=== PATIENT | male | born 1955 | race Caucasian/White ===

== ENCOUNTER → 2020-07-11 10:07 | Outpatient (BNVA) | payer MEDICARE, SELFPAY | PROVIDERS: PCP Family Medicine Geriatric Medicine; Referring Provider Family Medicine Geriatric Medicine; Visit Provider Nurse Practitioner Family | DX: R19.7 Diarrhea, unspecified (principal); Z12.11 Encounter for screening for malignant neoplasm of colon; Z79.899 Other long term (current) drug therapy; Z79.84 Long term (current) use of oral hypoglycemic drugs | CPT/HCPCS: Q3014 ==

== ENCOUNTER 2020-07-13 11:42 | Outpatient (REF) | payer MEDICARE, SELFPAY | END 2020-07-13 11:43 | disposition home or self-care (01) | LOC: HO.LAB 11:42 | PROVIDERS: PCP Internal Medicine; Visit Provider Nurse Practitioner Family | DX: Z13.89 Encounter for screening for other disorder (principal) ==

== ENCOUNTER 2020-08-27 08:07 | Outpatient (REF) | payer MEDICARE, SELFPAY ==
[2020-08-27 09:55] LABS: Alanine Aminotransferase 22 U/L (0-40); Albumin Level 4.2 g/dL (3.5-5.0); Alkaline Phosphatase 72 U/L (39-117); Anion Gap 13 (12-20); Aspartate Amino Transferase 19 U/L (5-37); Bilirubin Total 0.3 mg/dL (0.0-1.0); Blood Urea Nitrogen 23 mg/dL (9-16); Carbon Dioxide 28 mmol/L (22-29); Chloride 107 mmol/L (96-108); Estimated Glomerular Filt Rate 52; Glucose Random 164 mg/dL (60-115); Potassium 4.9 mmol/l (3.3-5.1); Sodium 143 mmol/L (135-145)
[2020-08-27 09:56] LABS: Hematocrit 42.3 % (42-52); Hemoglobin 13.7 g/dl (14.0-18.0); Mean Corpuscular HGB Conc 32.4 g/dl (31.0-36.0); Mean Corpuscular Hemoglobin 29.9 pg (27.0-33.0); Mean Corpuscular Volume 92.4 fL (80-98); Platelet Count 218 X10*3/uL (160-400); Red Blood Count 4.58 X10*6/uL (4.60-5.80); Red Cell Distribution Width 11.7 % (11.0-16.0); White Blood Count 5.9 X10*3/uL (4.8-10.8)
== END 2020-08-27 08:08 | disposition home or self-care (01) ==
LOC: HO.LAB 08:07
PROVIDERS: PCP Internal Medicine; Visit Provider Nurse Practitioner Family
DX: Z12.11 Encounter for screening for malignant neoplasm of colon (principal)
CPT/HCPCS: 36415; 80053; 85027

== ENCOUNTER 2020-09-18 08:10 | Day surgery (SDC) | payer MEDICARE, SELFPAY ==
--- NOTE | 2020-09-17 09:47 | HO.ANESPROP2 ---
HPI - Anesthesia Eval Consult details Narrative: 65yo [facility] Past Medical History Medical History Depression Diabetes mellitus Hypothyroid Family History Family History (Updated 07/11/20 @ 10:14 by KAREN Marin) Mother No problems noted. Father No problems noted. Surgical History Surgical History (Updated 09/11/20 @ 13:38 by Sulema Willams) Hx of colonoscopy Social History Social History (Updated 07/11/20 @ 10:15 by KAREN Marin) Alcohol intake: current Alcohol intake frequency: does not drink Smoking Status: Never smoker Use of substances other than those prescribed or required for medical reasons: No Advance Directives: No Advance Directives Information Provided: Yes Current occupational status: retired and disabled Meds Allergies Allergy/AdvReac Type Severity Reaction Status Date / Time No Known Allergies Allergy Verified 09/18/20 09:00 [No Known Allergies*] Home Medications Medication Instructions Recorded Confirmed Type clonazepam 0.5 mg tablet 0.5 mg PO TID PRN 07/11/20 09/11/20 History fluoxetine 20 mg capsule 20 mg PO DAILY 07/11/20 09/11/20 History fluoxetine 40 mg capsule 40 mg PO DAILY 07/11/20 09/11/20 History folic acid 400 mcg tablet 0.4 mg PO DAILY 07/11/20 09/11/20 History levothyroxine 75 mcg tablet 75 mcg PO DAILY 07/11/20 07/11/20 History lisinopril 10 mg tablet 10 mg PO DAILY 07/11/20 09/11/20 History metformin 500 mg tablet mg PO 07/11/20 07/11/20 History pravastatin 40 mg tablet 40 mg PO DAILY 07/11/20 09/11/20 History propranolol 20 mg tablet 20 mg PO DAILY 07/11/20 09/11/20 History Exam Exam Date and Time: September 17, 2020 0947 Pertinent Lab Results Pertinent Lab Results: Laboratory Tests 08/27/20 08/27/20 08:30 08:30 WBC 5.9 Hgb 13.7 L Hct 42.3 Plt Count 218 Sodium 143 Potassium 4.9 Chloride 107 Carbon Dioxide 28 BUN 23 H Creatinine 1.37 Assessment and Plan Assessment Anesthesia Assessment: Chart Reviewed
[2020-09-18 09:02] VITALS: BP 139/67; PULSE 60; RESP 18; TEMP 36.4; O2SAT 96; BMI 27.8
[2020-09-18 09:22] LABS: Glucose, Whole Blood 137 mg/dL (60-115)
[2020-09-18] MEDS: Lactated Ringers 1,000 ML 100 ML IVCONT (09:22)
--- NOTE | 2020-09-18 09:37 | W.PM.OPN ---
Operative Note Operative Note Date of Service: 09/18/20 Narrative: Pre-op diagnosis: Colon cancer screening, chronic diarrhea Post-op diagnosis: other (Colon polyp, diverticulosis, hemorrhoids) Procedure: COLONOSCOPY TILL CECUM WITH BIOPSIES AND SNARE POLYPECTOMY Consent: Indications for the procedure and potential complications of bleeding, perforation, reaction to medications and missed diagnosis were discussed with the patient and informed consent was obtained. Instrument: Olympus PCF H 190 L variable stiffness pediatric colonoscope Monitoring: Vital signs and clinical assessment, intermittent blood pressure monitoring, continuous EKG monitoring, Pulse oximetry and Carbon Dioxide monitoring were done throughout the procedure. Colon withdrawl time was 25 minutes. Procedure: The patient was placed in the left lateral decubitis position and pre-procedure medications were administered. After a digital rectal examination of the ano-rectum, the video colonoscope was inserted into the rectum and advanced through the colon to the cecum. The colonoscope was slowly withdrawn in a retrograde panoramic fashion and the colon mucosa was carefully examined including a retroflexed view of the rectum. Findings and interventions are described below. Procedure Difficulty: Colon was long and tortuous and there was some loop formation. LLQ pressure was applied to intubate the cecum Findings: Terminal Ileum: Not evaluated Cecum: Normal Ascending Colon: Normal Transverse Colon: Normal Descending Colon: Moderate diverticulosis Sigmoid Colon: A 10 mm sessile polyp removed with a cold snare and moderate diverticulosis Rectum: Normal Ano-rectum: Small internal hemorrhoids Colon preparation: Good after some irrigation Impression and Post Procedure Diagnosis: Colonoscopy Findings: One medium sized polyp removed Random biopsies were obtained from the colon Moderate diverticulosis seen in the left colon Small hemorrhoids on retroflexed exam. Plan: Await pathology results Patient to schedule a FU appointment in the GI [facility] with Iram Sainz FNP-ALISSA. Repeat Colonoscopy interval based on path results - in 3 years if polyps are adenomatous and 10 years if polyps are hyperplastic. Above findings were reviewed with the patient and colon polyps and diverticulosis handouts were given in the discharge area Surgeon: Sanket Leach MD Anesthesia: MAC (Dr Isaac) Estimated blood loss (mL): 0 Pathology: other (A. random colon biopsies, B. SC polyp x1) Condition: stable Disposition: PACU
--- NOTE | 2020-09-18 09:37 | MHC.SHP ---
Pre-Procedural Eval Section A The patient is an INPATIENT: No The History & Physical has been completed within 30 days and I have reviewed it.: No Section B Chief Complaint: screening Details of Present Illness: Patient had a colonoscopy in July of 2015. One cecal polyp was found with the biopsy revealing tubular adenoma. Patient reports that he has seen GI specialist at [facility] about 2 years ago for diarrhea. He was sent for colonoscopy to evaluate. He reports that he did not had a follow-up with the specialist after colonoscopy was done and does not know the results. Relevant Family History (Specify if Yes): No Relevant Social History: None Present Medications: see Short Stay [facility] assessment History of Previous Operations: Relevant previous surgery/procedure and date(s) (Colonoscopy 2014) Allergies: Allergies Allergy/AdvReac Type Severity Reaction Status Date / Time No Known Allergies Allergy Verified 09/18/20 09:00 [No Known Allergies*] Review of Systems Sugical H&P ROS: Negative: Constitution, Cardiovascular and Respiratory and Yes, Specify: Gastrointestinal (Chronic diarrhea) Exam Surgical H&P Exam: Normal: Heart, Normal: Lungs, Normal: Extremities and Normal: Abdomen Plan Diagnosis/Plan: Unchanged I have reviewed the history and physical and performed a pertinent physical examination on my patient. No changes have occurred unless specified.
[2020-09-18 10:28] VITALS: BP 101/66; PULSE 52; RESP 16; TEMP 36.4; O2SAT 97
[2020-09-18 10:44] VITALS: BP 102/63; PULSE 56; RESP 18; TEMP 36.6; O2SAT 98
[2020-09-18 10:55] VITALS: BP 116/51; PULSE 55; RESP 18; TEMP 36.6; O2SAT 98
--- NOTE | 2020-09-18 11:13 | HO.POSTANES ---
Post Anesthesia Evaluation Post Anesthesia Evaluation Vital Signs: Vital Signs Temp Pulse Resp BP Pulse Ox 09/18/20 10:55 97.8 F 55 18 116/51 L 98 09/18/20 10:44 97.8 F 56 18 102/63 98 09/18/20 10:28 97.5 F 52 16 101/66 97 09/18/20 09:02 97.5 F 60 18 139/67 96 Anesthesia: Monitored Mental Status: Awake Pain Control: Satisfactory Nausea/Vomiting: None Hydration: Adequate Anesthesia-Related Issues: No Anes. Related Issues
== END 2020-09-18 11:35 | disposition home or self-care (01) ==
PROVIDERS: PCP Internal Medicine; Visit Provider Internal Medicine Gastroenterology
PROC: 0DJD8ZZ Inspection of Lower Intestinal Tract, Via Natural or Artificial Opening Endoscopic (ICD-10-PCS; CPT 45378; principal; 2020-09-18 09:30)
DX: Z12.11 Encounter for screening for malignant neoplasm of colon (principal); Z86.010 Personal history of colon polyps; D12.5 Benign neoplasm of sigmoid colon; K57.30 Diverticulosis of large intestine without perforation or abscess without bleeding; K64.8 Other hemorrhoids; K52.9 Noninfective gastroenteritis and colitis, unspecified; E11.9 Type 2 diabetes mellitus without complications; E03.9 Hypothyroidism, unspecified; F32.9 Major depressive disorder, single episode, unspecified; Z79.84 Long term (current) use of oral hypoglycemic drugs; Z79.899 Other long term (current) drug therapy
CPT/HCPCS: 45385; 45380; 82947; 88305

== ENCOUNTER → 2020-09-25 14:09 | Outpatient (BNVA) | payer MEDICARE, SELFPAY | PROVIDERS: PCP Internal Medicine; Visit Provider Nurse Practitioner Family | DX: Z76.89 Persons encountering health services in other specified circumstances (principal) | CPT/HCPCS: Q3014 ==

== ENCOUNTER 2022-11-16 07:45 | Emergency (ER) | payer MEDICARE, SELFPAY ==
--- NOTE | ~2022-11-16 | CT_ITS ---
EXAMINATION: CT HEAD WITHOUT CONTRAST CLINICAL INFORMATION: Headache COMPARISON: None available. TECHNIQUE: Contiguous axial imaging was performed from the skull base to vertex without intravenous administration of contrast. This CT examination was performed using dose optimization techniques as appropriate, variously including the following: *Automated exposure control *Adjustment of mA and/or kV according to patient size (this includes techniques or standardized protocols for targeted exams where dose is matched to indication/reason for exam; i.e. extremities or head) *Use of iterative reconstruction technique DLP: 696 mGy-cm FINDINGS: There is no evidence of an extra-axial collection. There is no evidence of intra or extra-axial hemorrhage. The ventricles and extra-axial CSF spaces are appropriate. Lowry-white matter differentiation is normal. No skull fracture. Air-fluid level in the left maxillary sinus suggestive of sinusitis. Visualized paranasal sinuses, mastoid air cells and middle ears are otherwise clear. CT/CT head/brain wo IV con IMPRESSION: No acute intracranial pathology. Air-fluid level in the left maxillary sinus suggestive of acute sinusitis.
--- NOTE | ~2022-11-16 | XR_ITS ---
EXAMINATION: XR CHEST CLINICAL INFORMATION: Cough COMPARISON: None available. TECHNIQUE: Frontal view of the chest was obtained. FINDINGS: Cardiac silhouette is normal in size. The lungs are well aerated. There is mild asymmetric elevation of right hemidiaphragm. There is no lobar consolidation. No pleural effusion or pneumothorax. Mild degenerative changes of the spine. XR/XR chest 1V IMPRESSION: No acute pulmonary pathology.
[2022-11-16 07:48] VITALS: BP 105/61; PULSE 80; RESP 14; TEMP 36.9; O2SAT 99; BMI 27.1
--- NOTE | 2022-11-16 08:10 | ED_ITS ---
HPI - General Adult General Chief complaint: General Medical Stated complaint: nausea/ headache/ positive covid test 11/15? Time Seen by Provider: 11/16/22 07:55 Source: patient Mode of arrival: ambulatory Limitations: no limitations History of Present Illness HPI narrative: 67 yo male with history of pre-diabetes, HTN, hypothyroidism, anxiety, depression, bicuspid heart valve here with complaints of headache, nasal congestion, nausea, generalized weakness x 2 days. Took COVID test last night which was positive. Patient states severe generalized FERGUSON. Took 4 tablets of APAP last night with no relief. Can't sleep d/t pain. Patient denies fevers, chills, neck pain, neck stiffness, chest pain, shortness of breath, vomiting, diarrhea, abdominal pain, skin rash. He has received 5 COVID vaccinations. He has never h ad COVID before. Related Data Home Medications Medication Instructions Recorded Confirmed clonazepam 0.5 mg tablet 0.5 mg PO TID PRN Anxiety 07/11/20 09/25/20 fluoxetine 20 mg capsule 20 mg PO DAILY 07/11/20 09/25/20 fluoxetine 40 mg capsule 40 mg PO DAILY 07/11/20 09/25/20 folic acid 400 mcg tablet 0.4 mg PO DAILY 07/11/20 09/25/20 levothyroxine 75 mcg tablet 75 mcg PO DAILY 07/11/20 09/25/20 lisinopril 10 mg tablet 10 mg PO DAILY 07/11/20 09/25/20 metformin 500 mg tablet mg PO 07/11/20 09/25/20 pravastatin 40 mg tablet 40 mg PO DAILY 07/11/20 09/25/20 propranolol 20 mg tablet 20 mg PO DAILY 07/11/20 09/25/20 Previous Rx's Medication Instructions Recorded methylcellulose (laxative) 500 mg 500 mg PO DAILY #30 tabs 07/11/20 tablet (Citrucel) thlxawyfzg-wvtxbclawrmsy-pgclayun 1 cap PO Q8H PRN pain #5 caps 11/16/22 50 mg-300 mg-40 mg capsule (Fioricet) ondansetron 4 mg disintegrating 4 mg PO TID PRN nausea and 11/16/22 tablet vomiting #10 tabs Allergies Allergy/AdvReac Type Severity Reaction Status Date / Time No Known Allergies Allergy Verified 09/25/20 14:09 [No Known Allergies*] Review of Systems Review of Systems: Yes all other systems are reviewed and are negative Constitutional: Constitutional: Reports no additional constitutional complaints, Denies body ache(s), Denies chills, Denies fever(s), Reports headache(s) and Reports weakness Eyes: Eyes: Reports no additional eye complaints and Denies change in vision ENT: Reports system reviewed and no additional complaints, except as doc umented, Denies dizziness, Reports headache(s), Reports nasal congestion, Denies nasal discharge and Denies neck pain Cardiovascular: Cardiovascular: Reports no additional cardiovascular complaints, Denies chest pain, Denies leg edema and Denies dyspnea Respiratory: Respiratory: Reports no additional respiratory complaints, Denies cough and Denies dyspnea Gastrointestinal: Gastrointestinal: Reports no additional gastrointestinal complaints, Denies abdominal pain, Denies diarrhea, Reports nausea and Denies vomiting Genitourinary: Genitourinary: Denies urinary incontinence Musculoskeletal: Musculoskeletal: Reports no additional musculoskeletal complaints, Denies back pain, Denies arthralgias, Denies joint swelling, Denies neck pain, Denies numbness and Denies tingling Integumentary/Breasts: Skin/Breast: Reports system reviewed and no additional complaints, except as docu and Denies rash Neurologic: Reports system reviewed and no additional complaints, except as documented, Denies dizziness, Reports headache(s), Denies numbness, Denies tingling and Reports weakness PMFSH Past Medical History Attestation statement: The following information was validated with the patient. Source: old records reviewed and nursing notes reviewed Medical History Depression Diabetes mellitus Hypothyroid Tubular adenoma Surgical History Hx of colonoscopy Family History Family History Mother Heart attack Father Heart attack Social History Social History Household Members: Family Household Members Other:: mother Alcohol intake: never Smoked in Last 30 Days: No Use of substances other than those prescribed or required for medical reasons: No Advance Directives: Yes Advance Directives Information Provided: No Advance Directives on File: No Current occupational status: retired and disabled Physical Exam ED Vital Signs: Vital Signs - 24 hr 11/16/22 07:48 11/16/22 09:14 11/16/22 10:31 Temperature 98.5 F Pulse Rate 80 56 56 Respiratory Rate 14 16 Blood Pressure 105/61 114/47 L 110/46 L Pulse Oximetry 99 97 100 Oxygen Delivery Method Room Air Room Air Room Air 11/16/22 15:06 Temperature Pulse Rate 57 Respiratory Rate 16 Blood Pressure 124/56 L Pulse Oximetry 99 Oxygen Delivery Method Room Air BMI result Body Mass Index 27.1 Const General: cooperative, healthy appearing, comfortable and no acute distress Orientation/consciousness: patient oriented x3 Limitations: no limitations HENMT Head: Yes normal to inspection Ears: hearing grossly normal bilaterally and TM's normal bilaterally Throat: Yes posterior oropharynx normal, Yes tonsils normal and Yes uvula midline Eyes General: appearance normal, both eyes and all related structures Pupils: Equal, round and reactive pupils present Neck Neck: Yes normal visual inspection, Yes full ROM, Yes no lymphadenopathy and Yes no meningeal signs Chest Chest palpation & inspection: normal inspection of the chest Resp Effort & Inspection: normal respiratory effort Auscultation: clear to auscultation bilaterally Cardio Rate: regular rate Rhythm: regular rhythm Peripheral pulses: Peripheral pulses 2+ throughout GI Inspection: Yes normal to inspection Palpation (GI): Soft to palpation and nontender General: Yes no CVA tenderness Back/Spine/Pelvis Back: no CVA tenderness Thoracic/Lumbar Spine: thoracic and lumbar spine normal to inspection Skin General skin exam: no rashes or lesions noted Neuro General: patient oriented x3, moves all extremities and no meningeal signs Cranial nerves: Yes CN's II-XII intact bilaterally, Yes Equal, round and reactive pupils present, Yes Bilaterally intact EOM present, Yes Nystagmus not present, Yes Normal facial strength present and Yes Midline tongue present Cognition (Neuro): normal cognition Gait exam (Neuro): Normal gait present Motor exam (neuro): 5/5 motor strength present throughout Sensory Exam: Normal double simultaneous stimulation for sensation Extrem General: Yes normal to inspection, Yes no pedal edema and Yes no calf tenderness Course Course Course Narrative: 0900-Patient with elevated creatinine and BUN, mild hyperK. However most recent labs are from August of 2020 so I do not know if this is acute or chronic. Patient will receive 1 L of IV fluid and will reassess. Will obtain UA, EKG Reevaluation(s) Reevaluation #1: 0913-EKG shows NSR with rate 60, q wave present v2-v3. Likely anteroseptl infarct age indeterminate. 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 Will attempt to get records from [facility] as patient believes he has been there before as a patient Reevaluation #3: 1120-Unable to get old EKG after multiple attempts. No chest pain, exertional symptoms concerning for ACS with troponin 3.9. Not likely ACS. Additional Reevaluation(s): 1145-Repeat renal function post 1 L IVF still mildly elevated w/ mild acidosis, mild hyperK. D/w with Dr Huizar my attending physician, plan to give 2 additional L NS and re-assess. Patient is voiding, over all feeling better. Will give PO 1750-Patient will continued elevated creatinine/BUN, mild acidosis and hyper K despite 3L NS. Additional w/u negative. patient is voiding. Still feels quite weak, has FERGUSON. Ct head negative. Doubt meningitis, pseudotumor cerebri, temporal arteritis. Likely migraine. Patient does have some mild sinusitis on his CT scan however was only had symptoms for 2 days I would not treat him with any antibiotics. I discussed this patient with my attending physician Dr MERRITT. Patient should be admitted. 1830-since patient is at his baseline creatinines there does not seem to be a reason for admission. He does have mild hyperkalemia but this may be from hemolysis and is only mildly elevated. Patient received 1 dose of Lokelma while he was in the ER. I did recommend that he hold his metformin and follow up with his doctor in the next few days for repeat check of his labs and exam. Not a candidate for Paxlovid due to renal function. This was discussed with the patient Medications Administered Discontinued Medications Generic Name Dose Route Start Last Admin Trade Name Freq PRN Reason Stop Dose Admin Acetaminophen 975 mg 11/16/22 11:18 11/16/22 11:26 Acetaminophen 325 Mg Tablet PO 11/16/22 11:19 975 mg ONCE ONE Administration Sodium Chloride 1,000 mls @ 999 mls/hr 11/16/22 08:15 04/02/23 09:29 Ns IVCONT 11/16/22 09:15 Infused .Q1H1M MAU Infusion Sodium Chloride 1,000 mls @ 999 mls/hr 11/16/22 08:51 11/16/22 10:19 Ns IV 11/16/22 09:51 Infused .Q1H1M STA Infusion Sodium Chloride 2,000 mls @ 999 mls/hr 11/16/22 11:45 11/16/22 14:01 Ns IV 11/16/22 13:45 Infused .Q2H1M STA Infusion Medical Decision Making Medical Decision Making MDM Narrative: 67-year-old male who presents to the ER today with complaints of generalized headache, nasal congestion, weakness, nausea for 2 days. To go home COVID test which is positive yesterday. No chest pain shortness of breath or fever. Patient states the headache is quite severe and he took Tylenol several times with no relief at all. Patient was unable to sleep due to the pain. On arrival normal neuro with no focal deficit Vitals are stable Will check labs, CT head, COVID screen, CXR Differential Diagnosis Differential Diagnoses: The differential diagnosis associated with the presentation includes viral syndrome, electrolyte abnormality, anemia, pneumonia FERGUSON-doubt ICH, meninigits, pseudotumor cerebri, temporal arteritis Admission/Observation Consideration of admission/observation: Escalation of care including admission/observation considered Patient had KEMI, now back to baseline after IV fluid. Discussed with medicine and they feel as he is back at his baseline for his kidney function admission is not warranted Consult Healthcare Provider Management of the patient was discussed with: Hospitalist Spoke to Dr Hernandez. They were able to access [facility] records and patient has a baseline creatinine of 1.7. Since patient is at his baseline will plan for discharge home. Lab Data [facility] Lab Attestation statement: I reviewed the patient's lab results. 11/16/22 08:21 11/16/22 08:21 Labs: Lab Results 11/16/22 11/16/22 11/16/22 Range/Units 08:21 08:21 08:46 WBC 6.2 (4.8-10.8) X10*3/uL RBC 5.00 (4.60-5.80) X10*6/uL Hgb 15.1 (14.0-18.0) g/dl Hct 45.7 (42.0-52.0) % MCV 91.4 (80.0-98.0) fL MCH 30.2 (27.0-33.0) pg MCHC 33.0 (31.0-36.0) g/dl RDW 12.8 (11.0-16.0) % Plt Count 152 L (160-400) X10*3/uL MPV 9.6 (9.4-12.4) fL Immature Gran % (Auto) 0.5 H (0.0-0.4) % Neut % (Auto) 77.0 H (45-73) % Lymph % (Auto) 7.3 L (20-40) % [place] % (Auto) 14.9 H (2-11) % Eos % (Auto) 0.0 (0-4) % Baso % (Auto) 0.3 (0-2) % Lymph # (Auto) 0.5 L (1.2-4.9) X10*3/uL [place] # (Auto) 0.9 (0.1-1.2) X10*3/uL Eos # (Auto) 0.0 (0.0-0.4) X10*3/uL Baso # (Auto) 0.0 (0.0-0.2) X10*3/uL Abs Immat Gran (auto) 0.03 (0.00-0.03) X10*3/uL Absolute Neuts (auto) 4.8 (2.0-8.3) x10*3/uL Absolute Nucleated RBC 0.000 (0.0-0.012) X10*3/uL Nucleated RBC % (auto) 0.0 (0.0-0.2) /100WBC PT (10.0-13.1) SEC INR (0.9-1.1) Sodium 135 (135-145) mmol/L Potassium 5.4 H (3.3-5.1) mmol/L Chloride 104 (96-108) mmol/L Carbon Dioxide 22 (22-29) mmol/L Anion Gap 14 (12-20) BUN 31 H (9-16) mg/dL Creatinine 2.17 H (0.5-1.4) mg/dL Estim Creat Clear Calc 35.1 Estimated GFR 30 Random Glucose 129 H (60-115) mg/dL Calcium 9.0 (8.4-10.2) mg/dL Magnesium 2.4 (1.6-2.6) mg/dL Total Bilirubin 0.6 (0.0-1.0) mg/dL Direct Bilirubin 0.2 (0.0-0.5) mg/dL AST 28 (5-37) U/L ALT 33 (0-40) U/L Alkaline Phosphatase 75 (39-117) U/L Troponin I High Sens (<3.5-35.0) ng/L Total Protein 6.9 (6.5-8.0) g/dL Albumin 4.2 (3.5-5.0) g/dL Urine Color Urine Appearance Urine pH (5.0-9.0) Ur Specific [place] (1.005-1.025) Urine Protein (Neg-Trace) mg/dL Urine Glucose (UA) (Negative) mg/dL Urine Ketones (Negative) mg/dL Urine Blood (Negative) Urine Nitrite (Negative) Ur Leukocyte Esterase (Negative) Urine RBC (0-2) /HPF Urine WBC (0-5) /HPF Ur Squamous Epith Cells (0-2) /HPF Urine Bacteria (None Seen) Hyaline Casts (0-2) /LPF COVID-19 (ARIEL) Positive A (Negative) COVID-19 Clin Com See Note 11/16/22 11/16/22 11/16/22 Range/Units 10:34 10:51 10:51 WBC (4.8-10.8) X10*3/uL RBC (4.60-5.80) X10*6/uL Hgb (14.0-18.0) g/dl Hct (42.0-52.0) % MCV (80.0-98.0) fL MCH (27.0-33.0) pg MCHC (31.0-36.0) g/dl RDW (11.0-16.0) % Plt Count (160-400) X10*3/uL MPV (9.4-12.4) fL Immature Gran % (Auto) (0.0-0.4) % Neut % (Auto) (45-73) % Lymph % (Auto) (20-40) % [place] % (Auto) (2-11) % Eos % (Auto) (0-4) % Baso % (Auto) (0-2) % Lymph # (Auto) (1.2-4.9) X10*3/uL [place] # (Auto) (0.1-1.2) X10*3/uL Eos # (Auto) (0.0-0.4) X10*3/uL Baso # (Auto) (0.0-0.2) X10*3/uL Abs Immat Gran (auto) (0.00-0.03) X10*3/uL Absolute Neuts (auto) (2.0-8.3) x10*3/uL Absolute Nucleated RBC (0.0-0.012) X10*3/uL Nucleated RBC % (auto) (0.0-0.2) /100WBC PT 11.2 (10.0-13.1) SEC INR 1.0 (0.9-1.1) Sodium (135-145) mmol/L Potassium (3.3-5.1) mmol/L Chloride (96-108) mmol/L Carbon Dioxide (22-29) mmol/L Anion Gap (12-20) BUN (9-16) mg/dL Creatinine (0.5-1.4) mg/dL Estim Creat Clear Calc Estimated GFR Random Glucose (60-115) mg/dL Calcium (8.4-10.2) mg/dL Magnesium (1.6-2.6) mg/dL Total Bilirubin (0.0-1.0) mg/dL Direct Bilirubin (0.0-0.5) mg/dL AST (5-37) U/L ALT (0-40) U/L Alkaline Phosphatase (39-117) U/L Troponin I High Sens 3.9 (<3.5-35.0) ng/L Total Protein (6.5-8.0) g/dL Albumin (3.5-5.0) g/dL Urine Color Yellow Urine Appearance Clear Urine pH 5.5 (5.0-9.0) Ur Specific [place] 1.015 (1.005-1.025) Urine Protein Negative (Neg-Trace) mg/dL Urine Glucose (UA) >=1000 H (Negative) mg/dL Urine Ketones Trace (Negative) mg/dL Urine Blood Negative (Negative) Urine Nitrite Negative (Negative) Ur Leukocyte Esterase Negative (Negative) Urine RBC 0-2 (0-2) /HPF Urine WBC 0-5 (0-5) /HPF Ur Squamous Epith Cells 0-2 (0-2) /HPF Urine Bacteria None Seen (None Seen) Hyaline Casts 3-5 (0-2) /LPF COVID-19 (ARIEL) (Negative) COVID-19 Clin Com 11/16/22 11/16/22 Range/Units 11:17 17:10 WBC (4.8-10.8) X10*3/uL RBC (4.60-5.80) X10*6/uL Hgb (14.0-18.0) g/dl Hct (42.0-52.0) % MCV (80.0-98.0) fL MCH (27.0-33.0) pg MCHC (31.0-36.0) g/dl RDW (11.0-16.0) % Plt Count (160-400) X10*3/uL MPV (9.4-12.4) fL Immature Gran % (Auto) (0.0-0.4) % Neut % (Auto) (45-73) % Lymph % (Auto) (20-40) % [place] % (Auto) (2-11) % Eos % (Auto) (0-4) % Baso % (Auto) (0-2) % Lymph # (Auto) (1.2-4.9) X10*3/uL [place] # (Auto) (0.1-1.2) X10*3/uL Eos # (Auto) (0.0-0.4) X10*3/uL Baso # (Auto) (0.0-0.2) X10*3/uL Abs Immat Gran (auto) (0.00-0.03) X10*3/uL Absolute Neuts (auto) (2.0-8.3) x10*3/uL Absolute Nucleated RBC (0.0-0.012) X10*3/uL Nucleated RBC % (auto) (0.0-0.2) /100WBC PT (10.0-13.1) SEC INR (0.9-1.1) Sodium 136 137 (135-145) mmol/L Potassium 5.9 H 5.7 H (3.3-5.1) mmol/L Chloride 108 108 (96-108) mmol/L Carbon Dioxide 19 L 18 L (22-29) mmol/L Anion Gap 15 17 (12-20) BUN 28 H 27 H (9-16) mg/dL Creatinine 1.83 H 1.71 H (0.5-1.4) mg/dL Estim Creat Clear Calc 41.7 44.6 Estimated GFR 37 40 Random Glucose 94 87 (60-115) mg/dL Calcium 8.1 L D 8.1 L (8.4-10.2) mg/dL Magnesium (1.6-2.6) mg/dL Total Bilirubin (0.0-1.0) mg/dL Direct Bilirubin (0.0-0.5) mg/dL AST (5-37) U/L ALT (0-40) U/L Alkaline Phosphatase (39-117) U/L Troponin I High Sens (<3.5-35.0) ng/L Total Protein (6.5-8.0) g/dL Albumin (3.5-5.0) g/dL Urine Color Urine Appearance Urine pH (5.0-9.0) Ur Specific [place] (1.005-1.025) Urine Protein (Neg-Trace) mg/dL Urine Glucose (UA) (Negative) mg/dL Urine Ketones (Negative) mg/dL Urine Blood (Negative) Urine Nitrite (Negative) Ur Leukocyte Esterase (Negative) Urine RBC (0-2) /HPF Urine WBC (0-5) /HPF Ur Squamous Epith Cells (0-2) /HPF Urine Bacteria (None Seen) Hyaline Casts (0-2) /LPF COVID-19 (ARIEL) (Negative) COVID-19 Clin Com Independent Interpretation I performed an independent interpretation of an: EKG, Plain X-Ray and CT Scan Interpretation: I independently reviewed the x-ray and the CT scan and agree with radiologist's report I indepedentely reviewed the EKG which shows NSR with rate 60 with SA, q wave present v2-v3. Radiology Impression Discussion of test interpretation with radiology: I have reviewed the radiologist's reading. Radiologist Impression: [address] [address] XRay Report Signed Patient: Adrian Mancilla MR#: [id number] : 1955 Acct:[id number] Age/Sex: 67 / M ADM Date: 11/16/22 [facility]: Ordering Physician: Barry Huizar MD Date of Service: 11/16/22 Procedure(s): XR chest 1V Accession Number(s): [id number] cc: Barry Huizar MD~ EXAMINATION: XR CHEST CLINICAL INFORMATION: Cough COMPARISON: None available. TECHNIQUE: Frontal view of the chest was obtained. FINDINGS: Cardiac silhouette is normal in size. The lungs are well aerated. There is mild asymmetric elevation of right hemidiaphragm. There is no lobar consolidation. No pleural effusion or pneumothorax. Mild degenerative changes of the spine. XR/XR chest 1V IMPRESSION: No acute pulmonary pathology. [address] [address] XRay Report Signed Patient: Adrian Mancilla MR#: [id number] : 1955 Acct:[id number] Age/Sex: 67 / M ADM Date: 11/16/22 Loc: .ED Attending Dr: Ordering Physician: Barry Huizar MD Date of Service: 11/16/22 Procedure(s): XR chest 1V Accession Number(s): [id number] cc: Barry Huizar MD~ EXAMINATION: XR CHEST CLINICAL INFORMATION: Cough COMPARISON: None available. TECHNIQUE: Frontal view of the chest was obtained. FINDINGS: Cardiac silhouette is normal in size. The lungs are well aerated. There is mild asymmetric elevation of right hemidiaphragm. There is no lobar consolidation. No pleural effusion or pneumothorax. Mild degenerative changes of the spine. XR/XR chest 1V IMPRESSION: No acute pulmonary pathology. ? ? Discharge Plan Discharge Clinical Impression: Weakness, COVID-19, Acute dehydration Patient Disposition: Home, Self-Care Instructions: Dehydration (ED), Weakness (ED), COVID-19 (Coronavirus Disease 2019) (ED) Additional Instructions: Your COVID test was positive. Please continue your quarantine. Unfortunately due to your elevated kidney function you do not qualify for the current antiviral medications available for the treatment of COVID. Your labs show that your mildly dehydrated. You did receive IV fluids and your now back at your baseline kidney function. We did confirm this with your labs recently available from [facility] Your potassium was mildly elevated. Please hold your metformin for the next 5 days. You will need to see her primary care doctor this week to have your pota ssium level rechecked. Continue to increase fluids at home, take Tylenol for pain as needed Return for any chest pain, shortness of breath Prescriptions: New ondansetron 4 mg tablet,disintegrating 4 mg PO TID PRN (Reason: nausea and vomiting) Qty: 10 0RF [id number] [Fioricet] 50-300-40 mg capsule 1 cap PO Q8H PRN (Reason: pain) Qty: 5 0RF No Action fluoxetine 20 mg capsule 20 mg PO DAILY fluoxetine 40 mg capsule 40 mg PO DAILY clonazepam 0.5 mg tablet 0.5 mg PO TID PRN (Reason: Anxiety) levothyroxine 75 mcg tablet 75 mcg PO DAILY lisinopril 10 mg tablet 10 mg PO DAILY pravastatin 40 mg tablet 40 mg PO DAILY propranolol 20 mg tablet 20 mg PO DAILY metformin 500 mg tablet PO folic acid 400 mcg tablet 0.4 mg PO DAILY Citrucel 500 mg tablet 500 mg PO DAILY Qty: 30 3RF Referrals: Aly Herzog MD [Primary Care Provider] - 3 days
[2022-11-16] MEDS: 0.9 % Sodium Chloride 1,000 ML 999 ML IVCONT (08:22)
[2022-11-16 08:26] LABS: MANUAL DIFF FLAG NO
[2022-11-16 08:28] LABS: Basophils Percent Auto 0.3 % (0-2); Hematocrit 45.7 % (42.0-52.0); Hemoglobin 15.1 g/dl (14.0-18.0); Imm Gran Abs Auto 0.03 X10*3/uL (0.00-0.03); Imm Gran Pct Auto 0.5 % (0.0-0.4); Lymphocytes Absolute Auto 0.5 X10*3/uL (1.2-4.9); Lymphocytes Percent Auto 7.3 % (20-40); Mean Corpuscular Hemoglobin 30.2 pg (27.0-33.0); Mean Corpuscular Volume 91.4 fL (80.0-98.0); Mean Platelet Volume 9.6 fL (9.4-12.4); Monocytes Absolute Auto 0.9 X10*3/uL (0.1-1.2); Monocytes Percent Auto 14.9 % (2-11); Neutrophils Absolute Auto 4.8 x10*3/uL (2.0-8.3); Platelet Count 152 X10*3/uL (160-400); Red Cell Distribution Width 12.8 % (11.0-16.0); White Blood Count 6.2 X10*3/uL (4.8-10.8)
[2022-11-16 08:41] LABS: Alanine Aminotransferase 33 U/L (0-40); Albumin Level 4.2 g/dL (3.5-5.0); Alkaline Phosphatase 75 U/L (39-117); Anion Gap 14 (12-20); Aspartate Amino Transferase 28 U/L (5-37); Bilirubin Direct 0.2 mg/dL (0.0-0.5); Bilirubin Total 0.6 mg/dL (0.0-1.0); Blood Urea Nitrogen 31 mg/dL (9-16); Carbon Dioxide 22 mmol/L (22-29); Chloride 104 mmol/L (96-108); Creatinine Clr Calc Pharmacy 35.1; Estimated Glomerular Filt Rate 30; Glucose Random 129 mg/dL (60-115); Magnesium 2.4 mg/dL (1.6-2.6); Potassium 5.4 mmol/L (3.3-5.1); Sodium 135 mmol/L (135-145); Total Protein 6.9 g/dL (6.5-8.0)
--- NOTE | 2022-11-16 08:53 | ECG_ITS ---
Test Reason : HYPER K Blood Pressure : / mmHG Vent. Rate : 060 BPM Atrial Rate : 060 BPM P-R Int : 178 ms QRS Dur : 096 ms QT Int : 400 ms P-R-T Axes : 040 012 056 degrees QTc Int : 400 ms Sinus rhythm with marked sinus arrhythmia Possible Anterior infarct , age undetermined Abnormal ECG No previous ECGs available Referred By: Katharine Ozuna Electronically Signed By:Babar Hoyt
[2022-11-16 08:59] LABS: COVID-19 Test Positive (Negative); IDNOW Serial# BCCEAD1C
[2022-11-16 09:14] VITALS: BP 114/47; PULSE 56; RESP 16; O2SAT 97
[2022-11-16] MEDS: 0.9 % Sodium Chloride 1,000 ML 999 ML IV (09:18)
[2022-11-16 10:31] VITALS: BP 110/46; PULSE 56; O2SAT 100
[2022-11-16 10:41] LABS: Appearance Urine Clear; Color Urine Yellow; Glucose Urine UA >=1000 mg/dL (Negative); Leukocyte Esterase Urine Negative (Negative); Nitrite Urine Negative (Negative); PH 5.5 (5.0-9.0); Specific Gravity - Urine 1.015 (1.005-1.025); UMIC TRIGGER UACC YES; Urine Blood Negative (Negative); Urine Ketones Trace mg/dL (Negative); Urine Protein Negative (Neg-Trace)
[2022-11-16 10:43] LABS: Bacteria Urine None Seen (None Seen); RBC Urine 0-2 /HPF (0-2); Squamous Epithelial Cell Urine 0-2 /HPF (0-2); WBC Urine 0-5 /HPF (0-5)
[2022-11-16 11:01] LABS: Prothrombin Time 11.2 SEC (10.0-13.1)
[2022-11-16 11:16] LABS: Troponin-I High Sensitivity 3.9 ng/L (<3.5-35.0)
[2022-11-16] MEDS: Acetaminophen 325 MG TABLET 975 MG PO (11:26)
[2022-11-16 11:36] LABS: Anion Gap 15 (12-20); Blood Urea Nitrogen 28 mg/dL (9-16); Calcium 8.1 mg/dL (8.4-10.2); Carbon Dioxide 19 mmol/L (22-29); Chloride 108 mmol/L (96-108); Creatinine Clr Calc Pharmacy 41.7; Estimated Glomerular Filt Rate 37; Glucose Random 94 mg/dL (60-115); Potassium 5.9 mmol/L (3.3-5.1); Sodium 136 mmol/L (135-145)
[2022-11-16] MEDS: 0.9 % Sodium Chloride 2,000 ML 999 ML IV (11:55)
[2022-11-16 15:06] VITALS: BP 124/56; PULSE 57; RESP 16; O2SAT 99
[2022-11-16 17:43] LABS: Anion Gap 17 (12-20); Blood Urea Nitrogen 27 mg/dL (9-16); Calcium 8.1 mg/dL (8.4-10.2); Carbon Dioxide 18 mmol/L (22-29); Chloride 108 mmol/L (96-108); Creatinine Clr Calc Pharmacy 44.6; Estimated Glomerular Filt Rate 40; Glucose Random 87 mg/dL (60-115); Potassium 5.7 mmol/L (3.3-5.1); Sodium 137 mmol/L (135-145)
[2022-11-16] MEDS: Butalb/Acetamin/Caff 50/325/40 TABLET 1 TAB PO (18:34)
[2022-11-16] MEDS: Sodium Zirconium Cyclosilicate 10 GM POWD.PACK PO (18:34)
[2022-11-16 18:36] VITALS: BP 119/56; PULSE 76; RESP 18; O2SAT 97
--- NOTE | 2022-11-16 18:50 | PHA.MEDREC ---
Pharmacy Consult ? Medication Reconciliation Pharmacy has completed the medication reconciliation. spoke with patient and he provided a list of his medications.
== END 2022-11-16 19:02 | disposition home or self-care (01) ==
PROVIDERS: Nurse Practitioner Family; Emergency Provider Emergency Medicine; PCP Internal Medicine
DX: E86.0 Dehydration (principal); U07.1 COVID-19; R53.1 Weakness; I49.8 Other specified cardiac arrhythmias; R51.9 Headache, unspecified; Z79.899 Other long term (current) drug therapy
CPT/HCPCS: 36415; 70450; 71045; 80048; 80053; 80076; 81001; 82248; 83735; 84484; 85025; 85610; 87635; 93005; 96360; 96361; 99284; 99285

== ENCOUNTER 2023-04-14 09:43 | Outpatient (AMB) | payer MEDICARE, SELFPAY ==
--- NOTE | 2023-04-14 09:45 | MHC.OFFVIS ---
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 We will repeat colonoscopy in 3 years.? Patient aware to monitor for change in bowel pattern, unintentional weight loss, melena or blood in his stool.? He verbalizes understanding and agreeable to plan of care (2) Status post colonoscopy: ?Code(s): Z98.890 - Other specified postprocedural states ?Plan: Will repeat colonoscopy in 3 years.? Patient verbalizes understanding and agreeable to plan of care (3) Diarrhea: ?Code(s): R19.7 - Diarrhea, unspecified ?Plan: As mentioned above patient does report to have ongoing occasional diarrhea.? He reports to me that most likely his anxiety is contributing to that.? He did not fill the script for Citrucel, however he says he is using more beans in his diet.? I explained to him that Citrucel is more bulking agent it would be helpful and encouraged him to take it.? ? Patient verbalizes understanding and reports that he will get it from the pharmacy.? He was instructed to take it daily with full glass of water.? He was given the opportunity to ask questions and all questions answered.? I will see him in 3 months, sooner on an as-needed basis. TODAY'S VISIT Patient was sent by his PCP for colon screening. Patient does not recall having a colonoscopy in 2020, however patient remembers having one. His PCP thought that his last colonoscopy was in 2014. Recommendation was made for patient to return in September of 2019 for for colonoscopy. Currently patient reports to have loose stools occasionally. Patient reports that sometimes when he takes long trips he needs to wear it diet her. Patient denies melena, hematochezia, unintentional weight loss or ribbon like stools with patient denies any dyspepsia, dysphagia or odynophagia PFS Medical History Depression Diabetes mellitus Hypothyroid Tubular adenoma Surgical History Hx of colonoscopy Family History Mother Heart attack Father Heart attack Social History Household Members: Family Household Members Other:: mother Alcohol intake: never Current occupational status: retired and disabled Review of Systems Const Denies weight gain and Denies weight loss ENT Reports no additional complaints, Denies dysphagia and Denies odynophagia Card Reports no additional complaints Resp Reports no additional complaints GI Denies abdominal pain, Denies belching, Denies melena, Reports bloating, Denies dysphagia, Denies excessive flatus, Denies dyspepsia, Denies heartburn, Denies diarrhea, Reports loose stools, Denies nausea, Denies odynophagia and Denies vomiting Reports no additional complaints Musc Reports no additional complaints Neuro Reports no additional complaints Psych Reports no additional complaints Endo Reports no additional complaints Physical Exam Vital Signs: Last Vital Signs Pulse 63 04/14/23 09:47 BP 112/57 L 04/14/23 09:47 BMI result Body Mass Index 26.9 Const General: healthy appearing, no acute distress and well developed Nutritional Appearance: well nourished Orientation/consciousness: patient oriented x3 HEENT Head: Yes normal to inspection, Yes normocephalic and Yes atraumatic Face and sinus: Yes normal facial exam Mouth: Normal oral and palatal mucosa present Throat: Yes posterior oropharynx normal, Yes tonsils normal and Yes uvula midline Eyes General: appearance normal, both eyes and all related structures Neck Neck: Yes normal visual inspection, Yes full ROM and Yes trachea midline Thyroid: Thyroid normal Resp Effort & Inspection: normal respiratory effort, able to speak in complete sentences, no tracheal deviation and symmetric chest movement Auscultation: clear to auscultation bilaterally Cardio Rate: regular rate Heart sounds: S1 normal heart sound present and S2 normal heart sound present GI Inspection: Yes normal to inspection and No distended Palpation (GI): Soft to palpation, not firm, nontender and No hepatosplenomegaly present Auscultation: normal bowel sounds General: Yes no CVA tenderness Back/Spine/Pelvis Back: no CVA tenderness Skin General skin exam: elasticity normal, turgor normal and dry skin Neuro General: patient oriented x3 Psych Appearance: grossly normal Mental Status: mental status grossly normal Speech and movement: Normal speech and movement present Assessment & Plan Assessment & Plan (1) Diarrhea: Code(s): R19.7 - Diarrhea, unspecified Qualifiers: Diarrhea type: functional diarrhea Qualified Code(s): K59.1 - Functional diarrhea Plan: Postprandial loose stools. Patient was encouraged to change his diet. Avoid dietary triggers. Discussed his patient dietary changes. Low FODMAP diet discussed with patient. List of food recommended as well as list of food to avoid given to patient. (2) IBS (irritable bowel syndrome): Code(s): K58.9 - Irritable bowel syndrome without diarrhea Qualifiers: Irritable bowel syndrome type: with diarrhea Qualified Code(s): K58.0 - Irritable bowel syndrome with diarrhea Plan: Occasional postprandial abdominal bloating with loose stools. Patient can start taking Citrucel daily to help him bulk his stools. Patient was encouraged to drink plenty fluids. Will check CRP, vitamin B12, folate, vitamin-D level, thyroid. I will see patient in 4 months to discuss colonoscopy. Last colonoscopy was in September of 2020. One small polyp showing tubular adenoma without high-grade dysplasia or carcinoma found. Colorectal screening recommended 3-5 years. Patient can go for diagnostic screening due to his bowel pattern. Patient is agreeable to this plan and verbalizes understanding of instructions. He was given the opportunity to ask questions and all questions answered. Thank you for allowing me to participate in his care Orders: Orders TSH reflex Free T4 04/14/23 K59.00 - Constipation, unspecified C Reactive Protein 04/14/23 K58.9 - Irritable bowel syndrome without diarrhea Vitamin B12 and Folate 04/14/23 R19.7 - Diarrhea, unspecified Vitamin D 25-OH (D2 and D3) 04/14/23 E55.9 - Vitamin D deficiency, unspecified Medications: New methylcellulose (laxative) (Citrucel) take it with full glass of water 500 mg PO DAILY 90 tabs 2RF K59.00 - Constipation, unspecified Coding Level of Care Code Est Pt Level 4 (66280) Diagnoses Functional diarrhea K59.1 Diarrhea type: functional diarrhea Irritable bowel syndrome with diarrhea K58.0 Irritable bowel syndrome type: with diarrhea Time Spent (min) 35 Comment 20 minutes spent with patient and additional 15 minutes spent reviewing his records
[2023-04-14 09:47] VITALS: BP 112/57; PULSE 63; BMI 26.9
== END 2023-04-14 10:27 | disposition home or self-care (01) ==
PROVIDERS: PCP Internal Medicine; Visit Provider Nurse Practitioner Family
DX: K58.0 Irritable bowel syndrome with diarrhea (principal)
CPT/HCPCS: 99214

== ENCOUNTER 2023-04-14 09:43 | Outpatient (REF) | payer MEDICARE, SELFPAY ==
[2023-04-14 11:37] LABS: C Reactive Protein < 0.10 mg/dL (< or = 0.50)
[2023-04-14 12:07] LABS: Folate > 20.0 ng/mL (> or = 4.0); Vitamin B12 > 2000 pg/mL (200-900)
[2023-04-14 12:38] LABS: Free T4 (Free Thyroxine) 0.94 ng/dL (0.71-1.85)
[2023-04-18 13:43] LABS: Vitamin D 25-OH, D2 <4 ng/mL; Vitamin D 25-OH, D3 43 ng/mL; Vitamin D 25-OH, Total 43 ng/mL (30-100)
== END 2023-04-14 09:44 | disposition home or self-care (01) ==
LOC: HO.LAB 09:43
PROVIDERS: PCP Internal Medicine; Visit Provider Nurse Practitioner Family
DX: K59.00 Constipation, unspecified (principal); K58.0 Irritable bowel syndrome with diarrhea; K59.1 Functional diarrhea; E55.9 Vitamin D deficiency, unspecified
CPT/HCPCS: 36415; 82306; 82607; 82746; 84439; 84443; 86140; 99212

== ENCOUNTER 2023-08-21 08:48 | Outpatient (AMB) | payer MEDICARE, SELFPAY ==
[2023-08-21 08:53] VITALS: BP 137/65; PULSE 55; BMI 28.0
--- NOTE | 2023-08-21 08:53 | MHC.OFFVIS ---
Intake Vital Signs 08/21/23 08:53 Height 5 ft 11 in Weight 200 lb 9.93 oz BMI 28.0 BP 137/65 Blood Pressure Location Rt brachial Position Sitting Pulse 55 Intake Visit Reasons: r/s up from 08/03/23 Intake Note: Adrian returns to office today in follow up of labs and IBS. CC: Patient reports doing good but says he has had some episodes of diarrhea and abdominal pain. Neck Pinner Required: No Accompanied by: Self / Same As Patient Allergies No Known Allergies [No Known Allergies*] Allergy (Verified 08/21/23 09:03) HPI r/s up from 08/03/23 HPI Details LAST VISIT: Diarrhea Postprandial loose stools. Patient was encouraged to change his diet. Avoid dietary triggers. Discussed his patient dietary changes. Low FODMAP diet discussed with patient. List of food recommended as well as list of food to avoid given to patient. IBS (irritable bowel syndrome) Occasional postprandial abdominal bloating with loose stools. Patient can start taking Citrucel daily to help him bulk his stools. Patient was encouraged to drink plenty fluids. Will check CRP, vitamin B12, folate, vitamin-D level, thyroid. I will see patient in 4 months to discuss colonoscopy. Last colonoscopy was in September of 2020. One small polyp showing tubular adenoma without high-grade dysplasia or carcinoma found. Colorectal screening recommended 3-5 years. Patient can go for diagnostic screening due to his bowel pattern. Patient is agreeable to this plan and verbalizes understanding of instructions. He was given the opportunity to ask questions and all questions answered. ? Thank you for allowing me to participate in his care Plan Orders Orders TSH reflex Free T4 04/14/23 K59.00 C Reactive Protein 04/14/23 K58.9 Vitamin B12 and Folate 04/14/23 R19.7 Vitamin D 25-OH (D2 and D3) 04/14/23 E55.9 Medications New methylcellulose (laxative) (Citrucel) take it with full glass of water 500 mg PO DAILY 90 tabs 2RF K59.00 TODAY'S VISIT Patient is here today for follow-up and to discuss going for colonoscopy. Patient reports that he is taking Citrucel and states that his bowels are better. Patient has less loose stools. Occasional postprandial loose stools depending on what he eats. Patient denies any melena, hematochezia, unintentional weight loss or ribbon like stools. Last colonoscopy was in September of 2020 and recommendation was to repeat colonoscopy in 3-5 years. Will send patient for colonoscopy this year. Patient denies any dyspepsia, dysphagia or odynophagia. Denies any sleep apnea. Not on any anticoagulation medication. No issues with anesthesia in the past. Denies any cardiac or respiratory symptoms. [facility] Medical History Tubular adenoma Diabetes mellitus Hypothyroid Depression Surgical History Hx of colonoscopy Family History Mother Heart attack Father Heart attack Social History Household Members: Family Household Members Other:: mother Alcohol intake: never Current occupational status: retired and disabled Review of Systems Const Denies weight gain and Denies weight loss ENT Reports no additional complaints, Denies dysphagia and Denies odynophagia Card Reports no additional complaints Resp Reports no additional complaints GI Denies abdominal pain, Denies belching, Denies melena, Denies bloating, Denies change in bowel habits, Denies dysphagia, Denies excessive flatus, Denies dyspepsia, Denies heartburn, Denies diarrhea, Denies loose stools, Denies nausea, Denies odynophagia and Denies vomiting Reports no additional complaints Musc Reports no additional complaints Neuro Reports no additional complaints Psych Reports no additional complaints Endo Reports no additional complaints Physical Exam Vital Signs: Last Vital Signs Pulse 55 08/21/23 08:53 BP 137/65 08/21/23 08:53 BMI result Body Mass Index 28.0 Const General: healthy appearing, no acute distress and well developed Nutritional Appearance: well nourished Orientation/consciousness: patient oriented x3 HEENT Head: Yes normal to inspection, Yes normocephalic and Yes atraumatic Face and sinus: Yes normal facial exam Mouth: Normal oral and palatal mucosa present Throat: Yes posterior oropharynx normal, Yes tonsils normal and Yes uvula midline Eyes General: appearance normal, both eyes and all related structures Neck Neck: Yes normal visual inspection, Yes full ROM and Yes trachea midline Thyroid: Thyroid normal Resp Effort & Inspection: normal respiratory effort, able to speak in complete sentences, no tracheal deviation and symmetric chest movement Auscultation: clear to auscultation bilaterally Cardio Rate: regular rate GI Inspection: Yes normal to inspection and No distended Palpation (GI): Soft to palpation, not firm, nontender and No hepatosplenomegaly present Auscultation: normal bowel sounds General: Yes no CVA tenderness Back/Spine/Pelvis Back: no CVA tenderness Skin General skin exam: elasticity normal, turgor normal and dry skin Neuro General: patient oriented x3 Psych Appearance: grossly normal Mental Status: mental status grossly normal Results Reviewed Results Reviewed: Laboratory Tests 04/14/23 10:40 C-Reactive Protein < 0.10 25-OH Vitamin D Total 43 TSH 0.30 L Free T4 0.94 Assessment & Plan Assessment & Plan (1) Tubular adenoma: Code(s): D36.9 - Benign neoplasm, unspecified site (2) Diarrhea: Code(s): R19.7 - Diarrhea, unspecified Qualifiers: Diarrhea type: functional diarrhea Qualified Code(s): K59.1 - Functional diarrhea (3) IBS (irritable bowel syndrome): Code(s): K58.9 - Irritable bowel syndrome without diarrhea Qualifiers: Irritable bowel syndrome type: with both diarrhea and constipation Qualified Code(s): K58.2 - Mixed irritable bowel syndrome (4) Screen for colon cancer: Code(s): Z12.11 - Encounter for screening for malignant neoplasm of colon Plan Will schedule patient for colonoscopy today. Patient denies any melena, hematochezia, unintentional weight loss or ribbon like stools. Denies any dyspepsia, dysphagia or odynophagia. Patient will hold Citrucel week before procedure. What to expect before during and after the procedure discussed with patient. Clear liquid diet day before procedure as well as good bowel prep discussed with patient. Patient denies any cardiac or respiratory symptoms. Not on any anticoagulation medication. No history of sleep apnea. No issues with anesthesia in the past. I will see patient after the procedure, sooner on as needed basis. Patient is agreeable to this plan and verbalizes understanding of instructions. He was given the opportunity to ask questions and all questions answered. Thank you for allowing me to participate in his care Medications: New bisacodyl (Dulcolax (bisacodyl)) take 4 tabs at noon the day before your colonoscopy 20 mg (4 x 5 mg) PO ONCE 1 day 4 tabs 0RF Z12.11 - Encounter for screening for malignant neoplasm of colon polyethylene glycol 3350 (Miralax) As directed by gastroenterology department at [facility] 238 grams PO ONCE 238 grams 0RF Z12.11 - Encounter for screening for malignant neoplasm of colon Coding Level of Care Code Est Pt Level 3 (83302) Diagnoses Tubular adenoma D36.9 Functional diarrhea K59.1 Diarrhea type: functional diarrhea Irritable bowel syndrome with both constipation and diarrhea K58.2 Irritable bowel syndrome type: with both diarrhea and constipation Screen for colon cancer Z12.11 Time Spent (min) 30 Comment 20 minutes spent with patient and additional 10 minutes spent reviewing his records
== END 2023-08-21 09:25 | disposition home or self-care (01) ==
PROVIDERS: PCP Internal Medicine; Visit Provider Nurse Practitioner Family
DX: D36.9 Benign neoplasm, unspecified site (principal); K59.1 Functional diarrhea; K58.2 Mixed irritable bowel syndrome; Z12.11 Encounter for screening for malignant neoplasm of colon
CPT/HCPCS: 99213

== ENCOUNTER → 2023-08-21 08:48 | Outpatient (BNVA) | payer MEDICARE, SELFPAY | PROVIDERS: PCP Internal Medicine; Visit Provider Nurse Practitioner Family | DX: Z12.11 Encounter for screening for malignant neoplasm of colon (principal); K58.2 Mixed irritable bowel syndrome; K59.1 Functional diarrhea; D36.9 Benign neoplasm, unspecified site | CPT/HCPCS: 99212 ==

== ENCOUNTER 2023-12-28 11:55 | Day surgery (SDC) | payer MEDICARE, SELFPAY ==
[2023-12-25 08:44] VITALS: BMI 28.0
--- NOTE | 2023-12-25 13:04 | HO.ANESPROP2 ---
Documented by User: Martha Dawkins NP 12/25/23 13:05 HPI - Anesthesia Eval Consult details Narrative: 68yo M for Colonoscopy Anesthesia Pre-Procedure Meds Is the patient on any of the following meds?: SGLT2 Inhib PMFSH Active Problems Active Problems: All Active Problems COVID-19 (Acute) Tubular adenoma (Acute) Past Medical History Medical History Tubular adenoma Diabetes mellitus Hypothyroid Depression Family History Family History Mother Heart attack Father Heart attack Surgical History Surgical History Hx of colonoscopy Social History Social History Household Members: Family Household Members Other:: mother Alcohol intake: never Advance Directives: No Advance Directives Information Provided: Yes Current occupational status: retired and disabled Meds Allergies Allergy/AdvReac Type Severity Reaction Status Date / Time No Known Allergies Allergy Verified 12/28/23 14:28 [No Known Allergies*] Home Medications ?Medication ?Instructions ?Recorded ?Confirmed ?Last Taken ?Type clonazepam 0.5 mg tablet 0.5 mg PO TID PRN Anxiety 07/11/20 12/25/23 09/18/20 07:30 History fluoxetine 40 mg capsule 80 mg PO DAILY 07/11/20 12/25/23 Unknown History folic acid 400 mcg tablet 800 mcg PO 4XW 07/11/20 12/25/23 Unknown History levothyroxine 75 mcg tablet 75 mcg PO DAILY 07/11/20 12/25/23 Unknown History lisinopril 10 mg tablet 10 mg PO DAILY 07/11/20 12/25/23 Unknown History metformin 500 mg tablet 500 mg PO DAILY 07/11/20 12/28/23 12/24/23 History pravastatin 40 mg tablet 40 mg PO DAILY 07/11/20 12/25/23 Unknown History propranolol 20 mg tablet 20 mg PO DAILY 07/11/20 12/25/23 09/18/20 07:30 History cholecalciferol (vitamin D3) 25 25 mcg PO 2XW 11/16/22 12/25/23 Unknown History mcg (1,000 unit) capsule (Vitamin D3) cyanocobalamin (vitamin B-12) 5,000 mcg PO Q OTHER DAY 11/16/22 12/25/23 Unknown History 5,000 mcg capsule dapagliflozin propanediol 10 mg 10 mg PO DAILY 11/16/22 12/25/23 12/21/23 History tablet (Farxiga) ketoconazole 2 % shampoo 1 appl topical DAILY 11/16/22 12/25/23 Unknown History omega 4-faw-xqi-fish oil 1,000 mg 1 cap PO Q OTHER DAY 11/16/22 12/25/23 12/21/23 History (120 mg-180 mg) capsule (Fish Oil) hydrocortisone 2.5 % topical topical 08/21/23 Unknown History ointment Exam Height,Weight and Vital Signs: Height 5 ft 11 in Weight 91.172 kg Assessment and Plan Assessment Anesthesia Assessment: Chart Reviewed Documented by User: Audrey Cosby MD 12/28/23 14:28 [facility] Past Medical History Medical History Tubular adenoma Diabetes mellitus Hypothyroid Depression Family History Family History Mother Heart attack Father Heart attack Family history of problems with anesthesia: No Surgical History Surgical History Hx of colonoscopy History of Problems with Anesthesia: No Social History Social History Household Members: Family Household Members Other:: mother Alcohol intake: never Advance Directives: No Advance Directives Information Provided: Yes Current occupational status: retired and disabled Meds Allergies Allergy/AdvReac Type Severity Reaction Status Date / Time No Known Allergies Allergy Verified 12/28/23 14:28 [No Known Allergies*] Home Medications ?Medication ?Instructions ?Recorded ?Confirmed ?Last Taken ?Type clonazepam 0.5 mg tablet 0.5 mg PO TID PRN Anxiety 07/11/20 12/25/23 09/18/20 07:30 History fluoxetine 40 mg capsule 80 mg PO DAILY 07/11/20 12/25/23 Unknown History folic acid 400 mcg tablet 800 mcg PO 4XW 07/11/20 12/25/23 Unknown History levothyroxine 75 mcg tablet 75 mcg PO DAILY 07/11/20 12/25/23 Unknown History lisinopril 10 mg tablet 10 mg PO DAILY 07/11/20 12/25/23 Unknown History metformin 500 mg tablet 500 mg PO DAILY 07/11/20 12/28/23 12/24/23 History pravastatin 40 mg tablet 40 mg PO DAILY 07/11/20 12/25/23 Unknown History propranolol 20 mg tablet 20 mg PO DAILY 07/11/20 12/25/23 09/18/20 07:30 History cholecalciferol (vitamin D3) 25 25 mcg PO 2XW 11/16/22 12/25/23 Unknown History mcg (1,000 unit) capsule (Vitamin D3) cyanocobalamin (vitamin B-12) 5,000 mcg PO Q OTHER DAY 11/16/22 12/25/23 Unknown History 5,000 mcg capsule dapagliflozin propanediol 10 mg 10 mg PO DAILY 11/16/22 12/25/23 12/21/23 History tablet (Farxiga) ketoconazole 2 % shampoo 1 appl topical DAILY 11/16/22 12/25/23 Unknown History omega 8-gyb-fzh-fish oil 1,000 mg 1 cap PO Q OTHER DAY 11/16/22 12/25/23 12/21/23 History (120 mg-180 mg) capsule (Fish Oil) hydrocortisone 2.5 % topical topical 08/21/23 Unknown History ointment Exam Airway Mallampati Class: II TM Dist: >3cm Neck ROM: Full Heart: rrr Lungs: cta Assessment and Plan Assessment Anesthesia Assessment: Anesthesia Plan Discussed Final Anesthetic Review Family History of Problems with Anesthesia: No History of Problems with Anesthesia: No NPO: Yes ASA Class: III Final Preanesthetic Review: No Changes in Pt Med Stat, Meds/Allgs Chart Reviewed and Consent Obtained/Reviewed Patient Risk: Low Procedure Risk: Low Anesthetic Plan Anesthetic Plan: MAC: Disposition: Standard PACU
[2023-12-28 14:13] LABS: Glucose, Whole Blood 142 mg/dL (60-115)
[2023-12-28 14:16] LABS: Hematocrit 47.9 % (42.0-52.0); Hemoglobin 16.6 g/dl (14.0-18.0); Mean Corpuscular HGB Conc 34.7 g/dl (31.0-36.0); Mean Corpuscular Hemoglobin 30.9 pg (27.0-33.0); Mean Corpuscular Volume 89.2 fL (80.0-98.0); Mean Platelet Volume 9.6 fL (9.4-12.4); Platelet Count 199 X10*3/uL (160-400); Red Blood Count 5.37 X10*6/uL (4.60-5.80); Red Cell Distribution Width 12.7 % (11.0-16.0); White Blood Count 8.8 X10*3/uL (4.8-10.8)
--- NOTE | 2023-12-28 14:22 | MHC.SHP ---
Pre-Procedural Eval Section A - 24 Hr Update-Section A only Date of Service: 12/28/23 The patient is an INPATIENT: No The patient has been examined within 24 hours of the surgical procedure. The History & Physical has been completed within 30 days and I have reviewed it.: No Section B - Complete if H&P > 30 days Chief Complaint: Surveillance of colon polyps Relevant Family History (Specify if Yes): No Relevant Social History: None Present Medications: see Short Stay Collaborative assessment Medical History: Significant History (Diabetes mellitus, hypothyroidism) History of Previous Operations: Relevant previous surgery/procedure and date(s) (Colonoscopy 2014) Allergies: Allergies Allergy/AdvReac Type Severity Reaction Status Date / Time No Known Allergies Allergy Verified 08/21/23 09:03 [No Known Allergies*] Review of Systems Sugical H&P ROS: Negative: Constitution, Cardiovascular and Respiratory and Yes, Specify: Gastrointestinal (Chronic diarrhea) Exam Surgical H&P Exam: Normal: Heart, Normal: Lungs, Normal: Extremities and Normal: Abdomen Plan Diagnosis/Plan: Unchanged I have reviewed the history and physical and performed a pertinent physical examination on my patient. No changes have occurred unless specified. Time Spent With Patient Time: Total time managing care of this patient today ____ minutes.
[2023-12-28 14:29] VITALS: BP 106/67; PULSE 87; RESP 18; TEMP 36.5; O2SAT 98; BMI 26.5
[2023-12-28 14:29] LABS: Anion Gap 16 (12-20); Blood Urea Nitrogen 34 mg/dL (9-16); Calcium 9.8 mg/dL (8.4-10.2); Carbon Dioxide 17 mmol/L (22-29); Chloride 105 mmol/L (96-108); Creatinine Clr Calc Pharmacy 36.9; Estimated Glomerular Filt Rate 30; Glucose Fasting 127 mg/dL (60-99); Sodium 134 mmol/L (135-145)
--- NOTE | 2023-12-28 16:06 | P.OPN-COLO_ITS ---
Colonoscopy Operative Note Operative Note Date of Service: 12/28/23 Narrative: COLONOSCOPY TILL CECUM WITH SNARE POLYPECTOMY Pre-op diagnosis: Surveillance for colon polyps Post-op diagnosis:? Colon polyps, Diverticulosis, hemorrhoids Endoscopist:? Sanket Leach MD Anesthesia:?MAC Consent: Indications for the procedure and potential complications of bleeding, perforation, reaction to medications and missed diagnosis were discussed with the patient and informed consent was obtained. Instrument: Olympus CF H 190 L variable stiffness adult colonoscope Monitoring: Vital signs and clinical assessment, intermittent blood pressure monitoring, continuous EKG monitoring, Pulse oximetry and Carbon Dioxide monitoring were done throughout the procedure. Please see anesthesia flowsheet. Colon withdrawl time was 25 minutes. Procedure: The patient was placed in the left lateral decubitis position and pre-procedure medications were administered. After a digital rectal examination of the ano-rectum, the video colonoscope was inserted into the rectum and advanced through the colon to the cecum. The colonoscope was slowly withdrawn in a retrograde panoramic fashion and the colon mucosa was carefully examined including a retroflexed view of the rectum. Findings and interventions are described below. Procedure Difficulty: Colon was long and there was some loop formation. Patient was placed in the supine position and LLQ pressure was applied to intubate the cecum Findings: Terminal Ileum: Not evaluated Cecum: Normal Ascending Colon: Normal Transverse Colon: A 7-8 mm diminutive appearing polyp - removed with a cold snare Descending Colon: Moderate diverticulosis Sigmoid Colon: Severe diverticulosis with luminal narrowing Rectum: A 6-7 mm sessile polyp - removed with a cold snare Ano-rectum: Moderate internal hemorrhoids Colon preparation: Good after copious irrigation. [place] Bowel Preparation Scale Right colon; 2 Transverse colon: 2 Left colon; 2 (0 = Unprepared colon segment with mucosa not seen due to solid stool that cannot be cleared. 1 = Portion of mucosa of the colon segment seen, but other areas of the colon segment not well seen due to staining, residual stool and/or opaque liquid. 2 = Minor amount of residual staining, small fragments of stool and/or opaque liquid, but mucosa of colon segment seen well. 3 = Entire mucosa of colon segment seen well with no residual staining, small fragments of stool or opaque liquid) Impression and Post Procedure Diagnosis: Colonoscopy Findings: Two small polyps were removed Moderate to severe diverticulosis seen in the left colon Moderate hemorrhoids on retroflexed exam. Plan: Pt has a FU appointment on 5/28/24 with Carmella Sainz NP Repeat Colonoscopy in 5 years if polyps are adenomatous and due to a hx of adenomatous polyps. Above findings were reviewed with the patient and relevant handouts were given and the discharge area.
[2023-12-28 16:07] VITALS: BP 85/50; PULSE 67; RESP 16; TEMP 36.1; O2SAT 95
[2023-12-28 16:22] VITALS: BP 98/54; PULSE 60; RESP 15; O2SAT 98
[2023-12-28 16:37] VITALS: BP 106/60; PULSE 70; RESP 14; TEMP 36.4; O2SAT 99
== END 2023-12-28 16:47 | disposition home or self-care (01) ==
PROVIDERS: Nurse Practitioner; Visit Provider Internal Medicine Gastroenterology
PROC: 0DJD8ZZ Inspection of Lower Intestinal Tract, Via Natural or Artificial Opening Endoscopic (ICD-10-PCS; CPT 45378; principal; 2023-12-28 15:10)
DX: Z12.11 Encounter for screening for malignant neoplasm of colon (principal); D12.8 Benign neoplasm of rectum; K63.5 Polyp of colon; K57.30 Diverticulosis of large intestine without perforation or abscess without bleeding; K56.2 Volvulus; K64.8 Other hemorrhoids; Z86.010 Personal history of colon polyps; E11.9 Type 2 diabetes mellitus without complications
CPT/HCPCS: 45385; 36415; 80048; 82947; 85027; 88305; J2704

== ENCOUNTER → 2023-12-28 11:55 | Outpatient (BNV) | payer MEDICARE, SELFPAY | PROVIDERS: Visit Provider Internal Medicine Gastroenterology | DX: Z12.11 Encounter for screening for malignant neoplasm of colon (principal); D12.8 Benign neoplasm of rectum; D12.3 Benign neoplasm of transverse colon; K57.30 Diverticulosis of large intestine without perforation or abscess without bleeding; K64.8 Other hemorrhoids | CPT/HCPCS: 45385 ==

== ENCOUNTER 2024-01-12 08:58 | Outpatient (AMB) | payer MEDICARE, SELFPAY ==
--- NOTE | 2024-01-12 09:02 | MHC.OFFVIS ---
Vital Signs 01/12/24 09:04 Height 5 ft 11 in Weight 196 lb 3.382 oz BMI 27.4 BP 133/84 Blood Pressure Location Lt brachial Position Sitting Pulse 55 Intake Visit Reasons: s/p colon irina Intake Note: Adrian presents in the office as a follow up colonoscopy. CC: Just here for the results. Entry Level Web Developer Required: No Allergies No Known Allergies [No Known Allergies*] Allergy (Verified 01/12/24 09:02) HPI HPI s/p colon irina: Details: LAST VISIT Tubular adenoma Diarrhea IBS (irritable bowel syndrome) Screen for colon cancer Plan Will schedule patient for colonoscopy today. Patient denies any melena, hematochezia, unintentional weight loss or ribbon like stools. Denies any dyspepsia, dysphagia or odynophagia. Patient will hold Citrucel week before procedure. What to expect before during and after the procedure discussed with patient. Clear liquid diet day before procedure as well as good bowel prep discussed with patient. Patient denies any cardiac or respiratory symptoms. Not on any anticoagulation medication. No history of sleep apnea. No issues with anesthesia in the past. I will see patient after the procedure, sooner on as needed basis. Patient is agreeable to this plan and verbalizes understanding of instructions. He was given the opportunity to ask questions and all questions answered. ? Thank you for allowing me to participate in his care Medications New bisacodyl (Dulcolax (bisacodyl)) take 4 tabs at noon the day before your colonoscopy 20 mg (4 x 5 mg) PO ONCE 1 day 4 tabs 0RF Z12.11 polyethylene glycol 3350 (Miralax) As directed by gastroenterology department at [facility] 238 grams PO ONCE 238 grams 0RF Z12.11 COLONOSCOPY Findings: Terminal Ileum: Not evaluated Cecum: Normal Ascending Colon: Normal Transverse Colon: A 7-8 mm diminutive appearing polyp - removed with a cold snare Descending Colon: Moderate diverticulosis Sigmoid Colon: Severe diverticulosis with luminal narrowing Rectum: A 6-7 mm sessile polyp - removed with a cold snare Ano-rectum: Moderate internal hemorrhoids Colon preparation: Good after copious irrigation. Amanda Bowel Preparation Scale Right colon; 2 Transverse colon: 2 Left colon; 2 (0 = Unprepared colon segment with mucosa not seen due to solid stool that cannot be cleared. 1 = Portion of mucosa of the colon segment seen, but other areas of the colon segment not well seen due to staining, residual stool and/or opaque liquid. 2 = Minor amount of residual staining, small fragments of stool and/or opaque liquid, but mucosa of colon segment seen well. 3 = Entire mucosa of colon segment seen well with no residual staining, small fragments of stool or opaque liquid) Impression and Post Procedure Diagnosis: Colonoscopy Findings: Two small polyps were removed Moderate to severe diverticulosis seen in the left colon Moderate hemorrhoids on retroflexed exam. Plan: Repeat Colonoscopy in 5 years if polyps are adenomatous and due to a hx of adenomatous polyps. Above findings were reviewed with the patient and relevant handouts were given and the discharge area. PATHOLOGY RESULTS Diagnosis A. Colon, transverse, polypectomy: Hyperplastic mucosal polyp. B. Rectum, polypectomy: Tubular adenoma; negative for high-grade dysplasia or carcinoma TODAY'S VISIT: Patient is here today for follow-up and to discuss colonoscopy results. Patient denies any ill effects from the prep, anesthesia or procedure itself. Patient reports that he has been feeling well. Moving his bowels without any issues. Denies melena, hematochezia. Colonoscopy results discussed with patient. Patient denies any GI concerning symptoms today. [facility] Medical History Tubular adenoma Diabetes mellitus Hypothyroid Depression Surgical History Hx of colonoscopy Family History Mother Heart attack Father Heart attack Social History Household Members: Family Household Members Other:: mother Alcohol intake: never Patient Tobacco Use Status: Never used Tobacco Current occupational status: retired and disabled Review of Systems Const Denies weight gain and Denies weight loss ENT Reports no additional complaints, Denies dysphagia and Denies odynophagia Card Reports no additional complaints Resp Reports no additional complaints GI Denies abdominal pain, Denies belching, Denies melena, Denies bloating, Denies change in bowel habits, Denies dysphagia, Denies excessive flatus, Denies dyspepsia, Denies heartburn, Denies diarrhea, Denies loose stools, Denies nausea, Denies odynophagia and Denies vomiting Reports no additional complaints Musc Reports no additional complaints Neuro Reports no additional complaints Psych Reports no additional complaints Endo Reports no additional complaints Physical Exam Vital Signs: Last Vital Signs Pulse 55 01/12/24 09:04 BP 133/84 01/12/24 09:04 BMI result Body Mass Index 27.4 Const General: healthy appearing, no acute distress and well developed Nutritional Appearance: well nourished Orientation/consciousness: patient oriented x3 Resp Effort & Inspection: normal respiratory effort, able to speak in complete sentences, no tracheal deviation and symmetric chest movement Auscultation: clear to auscultation bilaterally Cardio Rate: regular rate GI Inspection: Yes normal to inspection and No distended Palpation (GI): Soft to palpation, not firm, nontender and No hepatosplenomegaly present Auscultation: normal bowel sounds General: Yes no CVA tenderness Back/Spine/Pelvis Back: no CVA tenderness Skin General skin exam: elasticity normal, turgor normal and dry skin Neuro General: patient oriented x3 Psych Appearance: grossly normal Mental Status: mental status grossly normal Assessment & Plan Assessment & Plan (1) Tubular adenoma: Code(s): D36.9 - Benign neoplasm, unspecified site Category: Medical (2) Status post colonoscopy: Code(s): Z98.890 - Other specified postprocedural states (3) Diverticulosis: Code(s): K57.90 - Diverticulosis of intestine, part unspecified, without perforation or abscess without bleeding Plan Tubular adenoma without high-grade dysplasia or carcinoma found. Patient will need to report for colorectal screening in 5 years, sooner if clinically necessary. Patient denies any GI concerning symptoms today. Diverticulosis also found on colonoscopy. Discussed with patient the importance of high-fiber diet. Patient can add probiotic. Patient will follow-up in the office on as needed basis. He is agreeable to this plan and verbalizes understanding of instructions. He was given the opportunity to ask questions and all questions answered Thank you for allowing me to participate in his care Coding Level of Care Code Est Pt Level 3 (66448) Diagnoses Tubular adenoma D36.9 Status post colonoscopy Z98.890 Diverticulosis K57.90 Time Spent (min) 25 Comment 15 minutes spent with patient and additional 10 minutes spent reviewing his records
[2024-01-12 09:04] VITALS: BP 133/84; PULSE 55; BMI 27.4
== END 2024-01-12 09:22 | disposition home or self-care (01) ==
PROVIDERS: PCP Internal Medicine; Visit Provider Nurse Practitioner Family
DX: D36.9 Benign neoplasm, unspecified site (principal); Z98.890 Other specified postprocedural states; K57.90 Diverticulosis of intestine, part unspecified, without perforation or abscess without bleeding
CPT/HCPCS: 99213

== ENCOUNTER → 2024-01-12 08:58 | Outpatient (BNVA) | payer MEDICARE, SELFPAY | PROVIDERS: PCP Internal Medicine; Visit Provider Nurse Practitioner Family | DX: D36.9 Benign neoplasm, unspecified site (principal); K57.90 Diverticulosis of intestine, part unspecified, without perforation or abscess without bleeding; Z98.890 Other specified postprocedural states | CPT/HCPCS: 99212 ==

== ENCOUNTER 2025-04-10 09:47 | Outpatient (AMB) | payer MEDICARE, SELFPAY ==
--- OUTSIDE RECORDS SUMMARY | 2025-04-10 08:15 | XMS_ITS | Encounter Summary ---
Author Organization [facility] Address [address] [address] Phone Care Team Providers Care Hand Bulldozer Name Role Phone Aly Herzog MD Primary Care Provider [phone] Reason for Visit * Reason Comments Chronic Kidney Disease Encounter Details Date Type Department Care Team (Late st Contact Info) Description 04/10/2025 8:15 AM EDT Office Visit [facility] [address] [address] Carley Vásquez ARNP [address] [address] Chronic kidney disease stage 3B (HCC) (Primary Dx); Hypertension; Vitamin D deficiency, not otherwise specified Social History Tobacco Use Types Packs/Day Years Used Date Smoking Tobacco: Never Smokeless Tobacco: Never Alcohol Use Standard Drinks/Week Comments Not Currently 0 (1 standard drink = 0.6 oz pur e alcohol) Sex and Gender Information Value Date Recorded Sex Assigned at Not on file Legal Sex Male 3:38 PM EDT Gender Identity Not on file Sexual Orientation Not on file documented as of this encounter Last Filed Vital Signs Vital Sign Reading Time Taken Comments Blood Pressure 130/80 04/10/2025 8:25 AM EDT Pulse 65 04/10/2025 8:25 AM EDT Temperature - - Respiratory Rate - - Oxygen Saturation 98% 04/10/2025 8:25 AM EDT Inhaled Oxygen Concentration - - Weight 89.3 kg (196 lb 12.8 oz) 04/10/2025 8:25 AM EDT Height - - Body Mass Index 27.45 03/18/2022 2:27 PM EDT documented in this encounter Patient Instructions * Patient Instructions* Carley Vásquez ARNP - 04/10/2025 8:15 AM EDT Blood pressure monitoring education: Monitor home blood pressure values after sitting for 5 minutes with back and arm support. Keep a log. Bring your log and blood pressure cuff to your next visit. documented in this encounter Plan of Treatment Upcoming Encounters Date Type Department Care Team (Late st Contact Info) Description 10/11/2025 1:15 PM EST Office Visit [facility] [address] [phone] Carley Vásquez ARNP [address] [address] Scheduled Orders Name Type Priority Associated Diagnoses Orde r Schedule Renal function panel Lab Routine Chronic kidney disease stage 3B (HCC) Hypertension Vitamin D deficiency, not otherwise specified Expected: 09/17/2025, Expires: 10/14/2025 PTH, intact Lab Routine Chronic kidney disease stage 3B (HCC) Hypertension Vitamin D deficiency, not otherwise specified Expected: 09/17/2025, Expires: 10/14/2025 Vitamin D 25 hydroxy Lab Routine Chronic kidney disease stage 3B (HCC) Hypertension Vitamin D deficiency, not otherwise specified Expected: 09/17/2025, Expires: 10/14/2025 Urine Protein / creatinine ratio Lab Routine Chronic kidney disease stage 3B (HCC) Hypertension Vitamin D deficiency, not otherwise specified Expected: 09/17/2025, Expires: 10/14/2025 Urine Albumin / Creatinine Ratio Lab Routine Chronic kidney disease stage 3B (HCC) Hypertension Vitamin D deficiency, not otherwise specified Expected: 09/17/2025, Expires: 10/14/2025 CBC Lab Routine Chronic kidney disease stage 3B (HCC) Hypertension Vitamin D deficiency, not otherwise specified Expected: 09/17/2025, Expires: 10/14/2025 documented as of this encounter Visit Diagnoses Diagnosis Chronic kidney disease stage 3B (HCC)- Primary Hypertension Vitamin D deficiency, not otherwise specified documented in this encounter Care Teams Hand Bulldozer Relationship Specialty Start Date End Date Aly Herzog MD [address] [place] [id number] PCP - General Internal Medicine 06/13/21 documented as of this encounter
--- OUTSIDE RECORDS SUMMARY | 2025-04-10 10:39 | XMS_ITS ---
Author Name [facility] Organization Unknown Care Team Organization Name Specialty Phone Email Start Date End Da te [facility] Aly Herzog Primary Care 03/03/2024 4 [facility] Aly Herzog Primary Care 06/24/2022 4
--- OUTSIDE RECORDS SUMMARY | 2025-04-10 10:39 | XMS_ITS | Clinical Summary ---
Author Organization [facility] Address [address] [place] [address] Phone Care Team Providers Care Tank Truck Milk Receiver Name Role Phone Aly Herzog MD Primary Care Provider [phone] Allergies No known active allergies Medications ascorbic acid (VITAMIN C) 500 mg tablet Take 1 tablet (500 mg total) by mouth 1 (one) time each day. Active clonazePAM (KlonoPIN) 0.5 mg tablet Take 1 tablet (0.5 mg total) by mouth 3 (three) times a day. Active dapagliflozin propanediol (FARXIGA) 10 mg tablet Take 1 tablet (10 mg total) by mouth 1 (one) time each day. Active FLUoxetine (PROzac) 20 mg tablet Take 1 tablet (20 mg total) by mouth 2 (two) times a day. Active folic acid (FOLVITE) 1 mg tablet Take 1 tablet (1 mg total) by mouth 1 (one) time each day. Active levothyroxine (SYNTHROID, LEVOTHROID) 75 mcg tablet Take 1 tablet (75 mcg total) by mouth 1 (one) time each day before breakfast. Active lisinopriL (PRINIVIL,ZESTRI L) 10 mg tablet Take 1 tablet (10 mg total) by mouth 1 (one) time each day. Active metFORMIN XR (GLUCOPHAGE-XR) 500 mg 24 hr tablet Take 1 tablet (500 mg total) by mouth 1 (one) time each day. Do not crush, chew, or split. Active pravastatin (PRAVACHOL) 40 mg tablet Take 1 tablet (40 mg total) by mouth at bedtime. Active propranoloL (INDERAL) 10 mg tablet Take 1 tablet (10 mg total) by mouth 1 (one) time each day. Active Cinnamon 500 mg capsule Take 2 capsules (1,000 mg total) by mouth 1 (one) time each day. Active B complex tablet Take 1 tablet by mouth 2 (two) times a week. Active magnesium 250 mg tablet Take by mouth 1 (one) time each day. Active cholecalciferol (D3-5000) 125 mcg (5,000 unit) capsule Take 1 capsule (5,000 Units total) by mouth 3 (three) times a week. Active TURMERIC ORAL Take 720 mg by mouth 1 (one) time each day. Active doxycycline (ADOXA) 100 mg tablet Take 1 tablet (100 mg total) by mouth 1 (one) time each day. Take with a full glass of water and do not lie down for at least 30 minutes after Active sildenafiL (VIAGRA) 100 mg tablet Take 1 tablet (100 mg total) by mouth 1 (one) time each day if needed for erectile dysfunction. Active Active Problems Problem Noted Date Diagnosed Date Primary hypertension 01/23/2025 Assessment & Plan (01/23/2025 9:34 AM EDT): Acceptable during today's exam with reading of 112/64. He will continue on his current dose of lisinopril 10 mg. Educated on the importance of diet lifestyle to help further assist in reducing blood pressure. The patient was encouraged to follow low-salt low-fat diet, make purposeful strides towards weight loss, and engage in routine aerobic exercise as tolerated. CKD (chronic kidney disease) 01/23/2025 Assessment & Plan (01/23/2025 9:34 AM EDT): Appears his baseline creatinine is about 1.6. Patient informs me that he has an appointment coming up with a new limnologist in the next few weeks as his old limnologist has since relocated to [place]. Mixed hyperlipidemia 01/23/2025 Assessment & Plan (01/23/2025 9:34 AM EDT): Last fasting lipid profile from 3 months ago revealed an LDL of 86. Elevation in triglycerides at 252. He will continue on his current dose of statin 40 mg to be mindful of his dietary fat and alcohol intake. Can consider updating fasting lipid profile in approximately 6 months unless already performed by his PCP. Encounters Date Type Department Care Team Description 01/23/2025 9:10 AM EDT Office Visit [facility] [address] [facility] [address] [place] [address] Bernadette Beltran NP Aortic valve stenosis, etiology of cardiac valve disease unspecified (Primary Dx); Primary hypertension; Chronic kidney disease, unspecified CKD stage; Mixed hyperlipidemia from Last 3 Months Family History Medical History Relation Name Comments Coronary artery disease Father Heart attack Mother Relation Name Status Comments Father Mother Social History Tobacco Use Types Packs/Day Years Used Date Smoking Tobacco: Never Smokeless Tobacco: Never Alcohol Use Standard Drinks/Week Comments Never 0 (1 standard drink = 0.6 oz pur e alcohol) Sex and Gender Information Value Date Recorded Sex Assigned at Not on file Legal Sex Male 2:04 PM EST Gender Identity Not on file Sexual Orientation Not on file Obstetrics History Last Filed Vital Signs Vital Sign Reading Time Taken Comments Blood Pressure 112/64 01/23/2025 9:03 AM EDT Pulse 68 01/23/2025 9:03 AM EDT Temperature - - Respiratory Rate - - Oxygen Saturation 98% 01/23/2025 9:03 AM EDT Inhaled Oxygen Concentration - - Weight 88.9 kg (196 lb) 01/23/2025 9:03 AM EDT Height 180.3 cm (5' 11 ) 01/23/2025 9:03 AM EDT Body Mass Index 27.34 01/23/2025 9:03 AM EDT Plan of Treatment Upcoming Encounters Date Type Department Care Team (Late st Contact Info) Description 05/24/2025 9:30 AM EDT Ancillary Procedure [facility] [address] [facility] [address] [place] [phone] Health Maintenance Due Date Last Done Comments COVID-19 Vaccine (#1) 1960 Diabetes: Annual Foot Exam 1965 Diabetes: Annual Retina Eye Exam 1965 DTaP,Tdap,and Td Vaccines (1 - Tdap) 1974 Zoster Vaccines (1 of 2) 1974 Pneumococcal Vaccine: 50+ Years (1 of 1 - PCV) 2005 RSV Immunization Adult Patients (1 - Risk 60-74 years 1-dose series) 2015 Colorectal Cancer Screening: Colonoscopy 07/16/2022 Falls Risk Assessment 07/16/2022 Hepatitis C Screening 07/16/2022 Social Influencers of Health Screening 07/16/2022 Depression Screening 08/17/2024 Influenza Vaccine (#1) 2025 Diabetes: Blood Sugar Contro l Test (HGBA1C) 04/20/2025 10/18/2024, 03/17/2022 Diabetes: Annual Urine Albumin-Creatinine Ratio (uACR) 10/18/2025 10/18/2024 Diabetes: Annual GFR (Glomerular Filtration Rate) 10/18/2025 10/18/2024 Hypertension/CHF/CAD Annual BMP Blood Test 10/18/2025 10/18/2024 Cholesterol Screening (Lipid Panel) 10/18/2029 10/18/2024 HIB Vaccines Aged Out No longer eligi ble based on patient's age to complete this topic HPV Vaccines Aged Out No longer eligi ble based on patient's age to complete this topic Hepatitis A Vaccines Aged Out No long er eligible based on patient's age to complete this topic Hepatitis B Vaccines Aged Out No long er eligible based on patient's age to complete this topic IPV Vaccines Aged Out No longer eligi ble based on patient's age to complete this topic MMR Vaccines Aged Out No longer eligi ble based on patient's age to complete this topic Meningococcal ACWY Vaccine Aged Out N o longer eligible based on patient's age to complete this topic Meningococcal B Vaccine Aged Out No l onger eligible based on patient's age to complete this topic RSV Immunization Patients Under 20 months Aged Out No longer eligible b ased on patient's age to complete this topic Varicella Vaccines Aged Out No longer eligible based on patient's age to complete this topic Procedures Procedure Name Priority Date/Time Associated Diagnosis Comments MICROALBUMIN CREATININE URINE RATIO Routine 10/18/2024 8:29 AM EST Routine general medical examination at a health care facility Screening for lipoid disorders Screening for malnutrition Avitaminosis D Screening for thyroid disorder Special screening for malignant neoplasm of prostate COMPREHENSIVE METABOLIC PANEL Routine 10/18/2024 8:20 AM EST Routine general medical examination at a [facility] care facility Screening for lipoid disorders Screening for malnutrition Avitaminosis D Screening for thyroid disorder Special screening for malignant neoplasm of prostate HEMOGLOBIN A1C Routine 10/18/2024 8:20 AM EST Routine general medical examination at a [facility] care facility Screening for lipoid disorders Screening for malnutrition Avitaminosis D Screening for thyroid disorder Special screening for malignant neoplasm of prostate LIPID PANEL WITH REFLEX TO DIRECT LDL Routine 10/18/2024 8:20 AM EST Routine general medical examination at a [facility] Screening for lipoid disorders Screening for malnutrition Avitaminosis D Screening for thyroid disorder Special screening for malignant neoplasm of prostate from Last 3 Months or Most Recently Relevant to Health Maintenance Results * Microalbumin creatinine urine ratio (10/18/2024 8:29 AM EST) Creatinine, Urine 106.0 mg/dL LAB CHEMISTRY METHOD 10/18/2024 11:43 AM EST [facility] Microalb, Ur 9.4 0.0 - 29.0 mg/L LAB CHEMISTRY METHOD 10/18/2024 11:43 AM EST [facility] Microalb/Creat Ratio 9 <30 mg/g creat LAB CHEMISTRY METHOD 10/18/2024 11:43 AM EST [facility] Urine Urine specimen obtained by clean catch procedure / Unknown Non-blood Collection / Unknown 10/18/2024 8:29 AM EST 10/18/2024 10:48 AM EST us Diaz Wills NP LAB URINE ORDERABLES Final Re sult [facility] [address] [place] [address], [place] [phone] * (ABNORMAL) Lipid panel with reflex to direct LDL (10/18/2024 8:20 AM EST) Cholesterol 176 0 - 200 mg/dL LAB CHEMISTRY METHOD 10/18/2024 11:[address] [facility] Triglycerides 252(H) 0 - 150 mg/dL LAB CHEMISTRY METHOD 10/18/2024 11:[address] [facility] HDL 40 >=40 mg/dL LAB CHEMISTRY METHOD 10/18/2024 11:[address] [facility] LDL Calculated 86 0 - 100 mg/dL LAB CHEMISTRY METHOD 10/18/2024 11:[address] [facility] VLDL Cholesterol Domenic 50.4 mg/dL LAB CHEMISTRY METHOD 10/18/2024 11:[address] [facility] Non HDL Chol. (LDL+VLDL) 136 <145 mg/dL LAB CHEMISTRY METHOD 10/18/2024 11:[address] [facility] Chol/HDL Ratio 4.4 0.0 - 4.4 LAB CHEMISTRY METHOD 10/18/2024 11:[address] [facility] Blood Venous blood specimen / Unknown Venipuncture / Unknown 10/18/2024 8:20 AM EST 10/18/2024 10:40 AM EST us Diaz Wills NP LAB BLOOD ORDERABLES Final Re sult [facility] [address] [place] [address], * (ABNORMAL) Hemoglobin A1c (10/18/2024 8:20 AM EST) Hemoglobin A1C 7.8(H) <6.5 % LAB CHEMISTRY METHOD 10/18/2024 8:[address] [facility] Mean Bld Glu Estim. 177 mg/dL LAB CHEMISTRY METHOD 10/18/2024 8:[address] [facility] Blood Venous blood specimen / Unknown Venipuncture / Unknown 10/18/2024 8:20 AM EST 10/18/2024 10:39 AM EST us Diaz Wills NP LAB BLOOD ORDERABLES Final Re sult [facility] [address] [place] [address], [place] [phone] * (ABNORMAL) Comprehensive metabolic panel (10/18/2024 8:20 AM EST) Sodium 134 133 - 145 mmol/L LAB CHEMISTRY METHOD 10/18/2024 11:[address] [facility] Potassium 4.0 3.5 - 5.5 mmol/L LAB CHEMISTRY METHOD 10/18/2024 11:[address] [facility] Chloride 103 96 - 110 mmol/L LAB CHEMISTRY METHOD 10/18/2024 11:[address] [facility] CO2 26 21 - 32 mmol/L LAB CHEMISTRY METHOD 10/18/2024 11:[address] [facility] Anion Gap 5 3 - 11 LAB CHEMISTRY METHOD 10/18/2024 11:[address] [facility] Glucose 175(H) 70 - 100 mg/dL LAB CHEMISTRY METHOD 10/18/2024 11:[address] [facility] BUN 31(H) 5 - 25 mg/dL LAB CHEMISTRY METHOD 10/18/2024 11:[address] [facility] Creatinine 1.65(H) 0.70 - 1.30 mg/dL LAB CHEMISTRY METHOD 10/18/2024 11:[address] [facility] eGFR 45(L) >=60 mL/min/1. 73m2 LAB CHEMISTRY METHOD 10/18/2024 11:[address] [facility] Comment:Calculation based on the Chronic Kidney Disease Epidemiology Collaboration (CKD-EPI) equation refit without adjustment for race. BUN/Creatinine Ratio 18.8 LAB CHEMISTRY METHOD 10/18/2024 11:[address] [facility] Calcium 9.5 8.5 - 10.5 mg/dL LAB CHEMISTRY METHOD 10/18/2024 11:[address] [facility] AST (SGOT) 16 10 - 42 unit/L LAB CHEMISTRY METHOD 10/18/2024 11:[address] [facility] ALT (SGPT) 26 10 - 60 unit/L LAB CHEMISTRY METHOD 10/18/2024 11:[address] [facility] Alkaline Phosphatase 57 42 - 121 unit/L LAB CHEMISTRY METHOD 10/18/2024 11:[address] [facility] Total Protein 7.4 6.0 - 8.0 g/dL LAB CHEMISTRY METHOD 10/18/2024 11:[address] [facility] Albumin 3.7 3.2 - 5.0 g/dL LAB CHEMISTRY METHOD 10/18/2024 11:[address] [facility] Total Bilirubin 0.5 0.0 - 1.4 mg/dL LAB CHEMISTRY METHOD 10/18/2024 11:[address] [facility] Blood Venous blood specimen / Unknown Venipuncture / Unknown 10/18/2024 8:20 AM EST 10/18/2024 10:40 AM EST us Diaz Wills NP LAB BLOOD ORDERABLES Final Re sult [facility] [address] [place] [address], [place] [phone] from Last 3 Months or Most Recently Relevant to Health Maintenance [place] [address] MEDICAID ADVANTAGE [address] [place] [address] Care Teams Tank Truck Milk Receiver Relationship Specialty Start Date End Date Aly Herzog MD [address] [place] [id number] PCP - General Internal Medicine 10/29/20
--- OUTSIDE RECORDS SUMMARY | 2025-04-10 10:39 | XMS_ITS | Clinical Summary ---
Author Organization [employer] Address [address] [place] [address] [address] [place] [address] Care Team Providers Care Rigger Supervisor Name Role Phone Unavailable Primary Care Provider Unavailabl e Social History Tobacco Use Types Packs/Day Years Used Date Smoking Tobacco: Never Assessed Sex and Gender Information Value Date Recorded Sex Assigned at Male 06/16/2022 10:25 AM EDT Legal Sex Male 10:25 AM EDT Gender Identity Male 06/16/2022 10:25 AM EDT Sexual Orientation Straight 06/16/2022 10 :25 AM EDT Plan of Treatment Health Maintenance Due Date Last Done Comments CT Colonography 1955 Colonoscopy 1955 Colorectal Cancer Screening 1955 Depression Screening 1955 FIT DNA/Cologuard 1955 FIT 1955 FOBT 1955 Lipid Panel 1955 Sigmoidoscopy 1955 Alcohol/Substance Use Screening 1967 Tobacco Screening 1967 DTaP/Tdap/Td Vaccines (1 - Tdap) 1974 Pneumococcal Vaccine: 50+ Ye ars (1 of 1 - PCV) 2005 Zoster Vaccines (1 of 2) 2005 COVID-19 Vaccine (1 - 2023-2 5 season) 2024 Influenza Vaccine (#1) 2025 RSV Patients and Pa tients Aged 60 years or older (1 - 1-dose 75+ series) 2030 HIB Vaccines Aged Out No longer eligi [...] patient's age to complete this topic Meningococcal Vaccine Aged Out No minal marci eligible based on patient's age to complete this topic RSV under 20 months Aged Out No longe r eligible based on patient's age to complete this topic Rotavirus Vaccines Aged Out No longer eligible based on patient's age to complete this topic
== END 2025-04-10 15:51 | disposition home or self-care (01) ==
LOC: HO.HMGAL 09:47
PROVIDERS: PCP Internal Medicine; Visit Provider Registered Nurse Emergency
DX: J30.89 Other allergic rhinitis (principal)
CPT/HCPCS: 95117; 95165

== ENCOUNTER 2025-05-01 10:54 | Outpatient (AMB) | payer MEDICARE, SELFPAY ==
--- OUTSIDE RECORDS SUMMARY | 2023-12-29 04:30 | XMS_ITS ---
Author Organization [facility] Address [address] [place] [address] Care Team Providers Care Barrel Coater Name Role Phone CHINO HERBERT Unavailable [phone] ONELIA SARABIAEN Unavailable [phone] Medications Medication SIG (Take, Route, Frequency, Duration) [...] Active Encounters Encounter Location Date Provider Diagnosis [facility] [address] [address] 12/29/2023 MAJOR SARABIA Essential (primary) hypertension I10 [...] hypertension (ICD-10 - I10) Patient Presents for [facility] Acute Concerns/Problem List: 12/28/2023 Hypertension Stable on ROMEL CKD IIIB, Creatinine 1.4-1.6, as high as 2.1, CKD suspect multifactorial including ROMEL inhibitor use, underlying CKD As well as metformin, renal ultrasound stable continue to trend. He is seeing a warper creeler who keeps track of his kidneys, he has an appointment next week GFR is 42 typically under 30 we would discontinue metformin and this is the threshold for SGLT 2 use DM, Stable, A1c 6.5 which is improved, well managed continue metformin at low dosing, no signs of acidosis on labs Rug Dry Room Attendant prescribed him jardiance and metformin combo but [...] high risk for cardiovascular events including stroke, DC As well as complications from infections, therefore immunizations are important The best way to monitor kidney function is through blood and urine test You should have these test done periodically If it is best if you complete the test a week or 2 before your visit with your primary care or warper creeler So that the most recent data can [...] log exercise and discussed fitness Apps like Quantum[employer]here which can help keep log off calories [...] gave form for that as well as [place] order for life sustaining treatment. I screen [...] software and direct typing Please excuse inadvertent construction laborer or typing errors, or uncorrected word substitutions Although every attempt has been made by the provider to proofread this document, occasional misspellings and typographical errors may still be present Due to the previous pandemic, and the use of personal protective equipment (PPE) This may decrease voice recognition accuracy Inadvertent construction laborer errors may occur 12/29/2023 Encounter for general adult medical examination without abnormal findings (ICD-10 - Z00.00) Patient Presents for [facility] Acute Concerns/Problem List: 12/28/2023 Hypertension Stable on ROMEL CKD IIIB, Creatinine 1.4-1.6, as high as 2.1, CKD suspect multifactorial including ROMEL inhibitor use, underlying CKD As well as metformin, renal ultrasound stable continue to trend. He is seeing a warper creeler who keeps track of his kidneys, he has an appointment next week GFR is 42 typically under 30 we would discontinue metformin and this is the threshold for SGLT 2 use DM, Stable, A1c 6.5 which is improved, well managed continue metformin at low dosing, no signs of acidosis on labs Rug Dry Room Attendant prescribed him jardiance and metformin combo but [...] high risk for cardiovascular events including stroke, DC As well as complications from infections, therefore immunizations are important The best way to monitor kidney function is through blood and urine test You should have these test done periodically If it is best if you complete the test a week or 2 before your visit with your primary care or warper creeler So that the most recent data can [...] log exercise and discussed fitness Apps like [employer] which can help keep log off calories [...] software and direct typing Please excuse inadvertent construction laborer or typing errors, or uncorrected word substitutions Although every attempt has been made by the provider to proofread this document, occasional misspellings and typographical errors may still be present Due to the previous pandemic, and the use of personal protective equipment (PPE) This may decrease voice recognition accuracy Inadvertent construction laborer errors may occur 12/29/2023 Type 2 diabetes mellitus without complication, without long-term current use of insulin (ICD-10 - E11.9) Patient Presents for [facility] Acute Concerns/Problem List: 12/28/2023 Hypertension Stable on ROMEL CKD IIIB, Creatinine 1.4-1.6, as high as 2.1, CKD suspect multifactorial including ROMEL inhibitor use, underlying CKD As well as metformin, renal ultrasound stable continue to trend. He is seeing a warper creeler who keeps track of his kidneys, he has an appointment next week GFR is 42 typically under 30 we would discontinue metformin and this is the threshold for SGLT 2 use DM, Stable, A1c 6.5 which is improved, well managed continue metformin at low dosing, no signs of acidosis on labs Rug Dry Room Attendant prescribed him jardiance and metformin combo but [...] high risk for cardiovascular events including stroke, DC As well as complications from infections, therefore immunizations are important The best way to monitor kidney function is through blood and urine test You should have these test done periodically If it is best if you complete the test a week or 2 before your visit with your primary care or warper creeler So that the most recent data can [...] log exercise and discussed fitness Apps like [employer]here which can help keep log off calories [...] software and direct typing Please excuse inadvertent construction laborer or typing errors, or uncorrected word substitutions Although every attempt has been made by the provider to proofread this document, occasional misspellings and typographical errors may still be present Due to the previous pandemic, and the use of personal protective equipment (PPE) This may decrease voice recognition accuracy Inadvertent construction laborer errors may occur 12/29/2023 Acquired hypothyroidism (ICD-10 - E03.9) Patient Presents for [facility] Acute Concerns/Problem List: 12/28/2023 Hypertension Stable on ROMEL CKD IIIB, Creatinine 1.4-1.6, as high as 2.1, CKD suspect multifactorial including ROMEL inhibitor use, underlying CKD As well as metformin, renal ultrasound stable continue to trend. He is seeing a warper creeler who keeps track of his kidneys, he has an appointment next week GFR is 42 typically under 30 we would discontinue metformin and this is the threshold for SGLT 2 use DM, Stable, A1c 6.5 which is improved, well managed continue metformin at low dosing, no signs of acidosis on labs Rug Dry Room Attendant prescribed him jardiance and metformin combo but [...] high risk for cardiovascular events including stroke, DC As well as complications from infections, therefore immunizations are important The best way to monitor kidney function is through blood and urine test You should have these test done periodically If it is best if you complete the test a week or 2 before your visit with your primary care or warper creeler So that the most recent data can [...] log exercise and discussed fitness Apps like [employer] which can help keep log off calories [...] gave form for that as well as [place] order for life sustaining treatment. I screen [...] software and direct typing Please excuse inadvertent construction laborer or typing errors, or uncorrected word substitutions Although every attempt has been made by the provider to proofread this document, occasional misspellings and typographical errors may still be present Due to the previous pandemic, and the use of personal protective equipment (PPE) This may decrease voice recognition accuracy Inadvertent construction laborer errors may occur 12/29/2023 Depression, unspecified depression type (ICD-10 - F32.9) Patient Presents for [facility] Acute Concerns/Problem List: 12/28/2023 Hypertension Stable on ROMEL CKD IIIB, Creatinine 1.4-1.6, as high as 2.1, CKD suspect multifactorial including ROMEL inhibitor use, underlying CKD As well as metformin, renal ultrasound stable continue to trend. He is seeing a warper creeler who keeps track of his kidneys, he has an appointment next week GFR is 42 typically under 30 we would discontinue metformin and this is the threshold for SGLT 2 use DM, Stable, A1c 6.5 which is improved, well managed continue metformin at low dosing, no signs of acidosis on labs Rug Dry Room Attendant prescribed him jardiance and metformin combo but [...] high risk for cardiovascular events including stroke, DC As well as complications from infections, therefore immunizations are important The best way to monitor kidney function is through blood and urine test You should have these test done periodically If it is best if you complete the test a week or 2 before your visit with your primary care or warper creeler So that the most recent data can [...] log exercise and discussed fitness Apps like [employer] which can help keep log off calories [...] software and direct typing Please excuse inadvertent construction laborer or typing errors, or uncorrected word substitutions Although every attempt has been made by the provider to proofread this document, occasional misspellings and typographical errors may still be present Due to the previous pandemic, and the use of personal protective equipment (PPE) This may decrease voice recognition accuracy Inadvertent construction laborer errors may occur 12/29/2023 Stage 3b chronic kidney disease (ICD-10 - N18.32) Patient Presents for [facility] Acute Concerns/Problem List: 12/28/2023 Hypertension Stable on ROMEL CKD IIIB, Creatinine 1.4-1.6, as high as 2.1, CKD suspect multifactorial including ROMEL inhibitor use, underlying CKD As well as metformin, renal ultrasound stable continue to trend. He is seeing a warper creeler who keeps track of his kidneys, he has an appointment next week GFR is 42 typically under 30 we would discontinue metformin and this is the threshold for SGLT 2 use DM, Stable, A1c 6.5 which is improved, well managed continue metformin at low dosing, no signs of acidosis on labs Rug Dry Room Attendant prescribed him jardiance and metformin combo but [...] high risk for cardiovascular events including stroke, DC As well as complications from infections, therefore immunizations are important The best way to monitor kidney function is through blood and urine test You should have these test done periodically If it is best if you complete the test a week or 2 before your visit with your primary care or warper creeler So that the most recent data can [...] log exercise and discussed fitness Apps like [employer] which can help keep log off calories [...] software and direct typing Please excuse inadvertent construction laborer or typing errors, or uncorrected word substitutions Although every attempt has been made by the provider to proofread this document, occasional misspellings and typographical errors may still be present Due to the previous pandemic, and the use of personal protective equipment (PPE) This may decrease voice recognition accuracy Inadvertent construction laborer errors may occur 12/29/2023 Hyperlipidemia, unspecified (ICD-10 - E78.5) Patient Presents for [facility] Acute Concerns/Problem List: 12/28/2023 Hypertension Stable on ROMEL CKD IIIB, Creatinine 1.4-1.6, as high as 2.1, CKD suspect multifactorial including ROMEL inhibitor use, underlying CKD As well as metformin, renal ultrasound stable continue to trend. He is seeing a warper creeler who keeps track of his kidneys, he has an appointment next week GFR is 42 typically under 30 we would discontinue metformin and this is the threshold for SGLT 2 use DM, Stable, A1c 6.5 which is improved, well managed continue metformin at low dosing, no signs of acidosis on labs Rug Dry Room Attendant prescribed him jardiance and metformin combo but [...] high risk for cardiovascular events including stroke, DC As well as complications from infections, therefore immunizations are important The best way to monitor kidney function is through blood and urine test You should have these test done periodically If it is best if you complete the test a week or 2 before your visit with your primary care or warper creeler So that the most recent data can [...] log exercise and discussed fitness Apps like [employer] which can help keep log off calories [...] software and direct typing Please excuse inadvertent construction laborer or typing errors, or uncorrected word substitutions Although every attempt has been made by the provider to proofread this document, occasional misspellings and typographical errors may still be present Due to the previous pandemic, and the use of personal protective equipment (PPE) This may decrease voice recognition accuracy Inadvertent construction laborer errors may occur 12/29/2023 Encounter for screening for depression (ICD-10 - Z13.31) Patient Presents for [facility] Acute Concerns/Problem List: 12/28/2023 Hypertension Stable on ROMEL CKD IIIB, Creatinine 1.4-1.6, as high as 2.1, CKD suspect multifactorial including ROMEL inhibitor use, underlying CKD As well as metformin, renal ultrasound stable continue to trend. He is seeing a warper creeler who keeps track of his kidneys, he has an appointment next week GFR is 42 typically under 30 we would discontinue metformin and this is the threshold for SGLT 2 use DM, Stable, A1c 6.5 which is improved, well managed continue metformin at low dosing, no signs of acidosis on labs Rug Dry Room Attendant prescribed him jardiance and metformin combo but [...] high risk for cardiovascular events including stroke, DC As well as complications from infections, therefore immunizations are important The best way to monitor kidney function is through blood and urine test You should have these test done periodically If it is best if you complete the test a week or 2 before your visit with your primary care or warper creeler So that the most recent data can [...] log exercise and discussed fitness Apps like [employer] which can help keep log off calories [...] gave form for that as well as [place] order for life sustaining treatment. I screen [...] software and direct typing Please excuse inadvertent construction laborer or typing errors, or uncorrected word substitutions Although every attempt has been made by the provider to proofread this document, occasional misspellings and typographical errors may still be present Due to the previous pandemic, and the use of personal protective equipment (PPE) This may decrease voice recognition accuracy Inadvertent construction laborer errors may occur 12/29/2023 Encounter for screening for other disorder (ICD-10 - Z13.89) Patient Presents for [facility] Acute Concerns/Problem List: 12/28/2023 Hypertension Stable on ROMEL CKD IIIB, Creatinine 1.4-1.6, as high as 2.1, CKD suspect multifactorial including ROMEL inhibitor use, underlying CKD As well as metformin, renal ultrasound stable continue to trend. He is seeing a warper creeler who keeps track of his kidneys, he has an appointment next week GFR is 42 typically under 30 we would discontinue metformin and this is the threshold for SGLT 2 use DM, Stable, A1c 6.5 which is improved, well managed continue metformin at low dosing, no signs of acidosis on labs Rug Dry Room Attendant prescribed him jardiance and metformin combo but [...] high risk for cardiovascular events including stroke, DC As well as complications from infections, therefore immunizations are important The best way to monitor kidney function is through blood and urine test You should have these test done periodically If it is best if you complete the test a week or 2 before your visit with your primary care or warper creeler So that the most recent data can [...] log exercise and discussed fitness Apps like [employer] which can help keep log off calories [...] gave form for that as well as [place] order for life sustaining treatment. I screen [...] software and direct typing Please excuse inadvertent construction laborer or typing errors, or uncorrected word substitutions Although every attempt has been made by the provider to proofread this document, occasional misspellings and typographical errors may still be present Due to the previous pandemic, and the use of personal protective equipment (PPE) This may decrease voice recognition accuracy Inadvertent construction laborer errors may occur Plan Of Treatment Medication Medication Name Sig Start Date Stop Date Notes Farxiga 10 MG 1 tablet Orally Once a day; Duration: 90 days Next Appt Details Provider Name:MAJOR SARABIA, 05/19/2025 09:00:00 AM, [address] [facility], [facility], [place], [address], Progress Notes * LAMBERTO MELENDREZ EDOB:[birth year] (69 yo M)Acc No.[id number]:12/29/2023 Progress Note Patient: Laura ManzanoSONIDO LAMBERTO Jael Provider: Fitz SARABIA NP :[id number] A ge:68 Y S ex:Male Date:12/29/2023 Address:[address] [place], [place] [id number] Subjective: * Chief Complaints: * * HPI: C onstitutional: Patient is here for a Medicare wellness visit. Complete paperwork was reviewed and updated and has been filed and scan. Age appropriate screening measures reviewed Depression screen completed. Alcohol audit screening completed. Obesity screen completed. Cardiovascular risk stratification screen completed. Cognition assessed Fall risk assessed Discussed healthcare proxy. Discussed [place] order for life sustaining treatment, Comprehensive fasting labs reviewed Patient seen and examined. Full past medical history, social history, family history, allergies and current medications were reviewed and updated. Acute Concerns/Problem List: 12/28/2023 Recently seen in the ER for migraine headaches Currently attending [facility] for [facility] Moved to [place] in February 2023 He tells me he [...] polyp needs repeat @ [facility], states he will call. * ROS: [...] disorder - Z13.89 ? Patient Presents for [facility] Acute Concerns/Problem List: 12/28/2023 Hypertension Stable on ROMEL CKD IIIB, Creatinine 1.4-1.6, as high as 2.1, CKD suspect multifactorial including ROMEL inhibitor use, underlying CKD As well as metformin, renal ultrasound stable continue to trend. He is seeing a warper creeler who keeps track of his kidneys, he has an appointment next week GFR is 42 typically under 30 we would discontinue metformin and this is the threshold for SGLT 2 use DM, Stable, A1c 6.5 which is improved, well managed continue metformin at low dosing, no signs of acidosis on labs Rug Dry Room Attendant prescribed him jardiance and metformin combo but insurance does not cover We will cont him on farxiga separately from [facility] , Will watch his GFR closely chemically [...] high risk for cardiovascular events including stroke, [place] As well as complications from infections, therefore immunizations are important The best way to monitor kidney function is through blood and urine test You should have these test done periodically If it is best if you complete the test a week or 2 before your visit with your primary care or warper creeler So that the most recent data can [...] log exercise and discussed fitness Apps like [employer] which can help keep log off calories [...] gave form for that as well as [place] order for life sustaining treatment. I screen [...] software and direct typing Please excuse inadvertent construction laborer or typing errors, or uncorrected word substitutions Although every attempt has been made by the provider to proofread this document, occasional misspellings and typographical errors may still be present Due to the previous pandemic, and the use of personal protective equipment (PPE) This may decrease voice recognition accuracy Inadvertent construction laborer errors may occur. Plan: * Treatment: * Procedure Codes: 9 9199 NO SHOW OFFICE VISIT * Images: Billing Information: * Visit Code: * Procedure Codes: 48482 NO SHOW OFFICE VISIT. Care Plan Details* * Electronic signature of ONELIA GARCIA NO on 05/01/2025 at 02:28 PM EDT Sign off status: Pending * Provider: Fitz SARABIA NP Date: 0 12/29/2023 Generated for Viki hanks/Guille/Aby on: 0 05/01/2025 02:28 PM EDT History and Physical Notes * [...] the ER for migraine headaches Currently attending [facility] for [facility] Moved to [place] in February 2023 He tells me he [...] polyp needs repeat @ [facility], states he will call Examination Category Sub-Category Detail Notes Category Not es General Examination GENERAL APPEARANCE: in no ac alden distress, well developed, well nourished HEAD: normocephalic, [...]
--- OUTSIDE RECORDS SUMMARY | 2025-05-01 14:28 | XMS_ITS | Encounter Summary ---
Author Organization [employer] Address [address] [place] [address] 7 [place] [address] Care Team Providers Care Wirer Helper Name Role Phone Unavailable Primary Care Provider Unavailabl e Encounter Details Date Type Department Care Team (Latest Contact Info) Description 08/16/2019 Abstract [facility] CONVERSIONS Dental, Provider, DDS Social History Tobacco Use Types Packs/Day Years Used Date Smoking Tobacco: Never Assessed Sex and Gender Information Value Date Recorded Sex Assigned at Male 06/16/2022 10:25 AM EDT Legal Sex Male 10:25 AM EDT Gender Identity Male 06/16/2022 10:25 AM EDT Sexual Orientation Straight 06/16/2022 10 :25 AM EDT documented as of this encounter Plan of Treatment Not on file documented as of this encounter Visit Diagnoses Not on filedocumented in this encounter
--- OUTSIDE RECORDS SUMMARY | 2025-05-01 14:28 | XMS_ITS | Clinical Summary ---
Author Organization [facility] [employer] [facility] Address [address] [facility] [place] [address] Phone Care Team Providers Care Shell Press Operator Name Role Phone Aly Herzog MD Primary Care Provider [phone] Allergies No known active allergies Medications ascorbic [...] an appointment coming up with a new arterial embalmer in the next few weeks as his old arterial embalmer has since relocated to [place]. Mixed [...] months unless already performed by his PCP. Family History Medical History Relation Name Comments [...] Description 05/24/2025 9:30 AM EDT Ancillary Procedure [facility] [address] [place] [address] Health Maintenance Due Date Last Done Comments [...] LAB CHEMISTRY METHOD 10/18/2024 11:43 AM EST [facility] Microalb, Ur 9.4 0.0 - 29.0 mg/L LAB CHEMISTRY METHOD 10/18/2024 11:43 AM EST [facility] Microalb/Creat Ratio 9 <30 mg/g creat LAB CHEMISTRY METHOD 10/18/2024 11:43 AM EST [facility] Urine Urine specimen obtained by clean catch procedure / Unknown Non-blood Collection / Unknown 10/18/2024 8:29 AM EST 10/18/2024 10:48 AM EST us Diaz Wills NP LAB URINE ORDERABLES Final Re sult [facility] [address] [place] [address], [place] [phone] * (ABNORMAL) Lipid panel with reflex to direct LDL (10/18/2024 8:20 AM EST) Cholesterol 176 0 - 200 mg/dL LAB CHEMISTRY METHOD 10/18/2024 11:17 AM EST [facility] Triglycerides 252(H) 0 - 150 mg/dL LAB CHEMISTRY METHOD 10/18/2024 11:17 AM EST [facility] HDL 40 >=40 mg/dL LAB CHEMISTRY METHOD 10/18/2024 11:17 AM [facility] LDL Calculated 86 0 - 100 mg/dL LAB CHEMISTRY METHOD 10/18/2024 11:17 AM [facility] VLDL Cholesterol Domenic 50.4 mg/dL LAB CHEMISTRY METHOD 10/18/2024 11:17 AM [facility] Non HDL Chol. (LDL+VLDL) 136 <145 mg/dL LAB CHEMISTRY METHOD 10/18/2024 11:17 AM [facility] Chol/HDL Ratio 4.4 0.0 - 4.4 LAB CHEMISTRY METHOD 10/18/2024 11:17 AM [facility] Blood Venous blood specimen / Unknown Venipuncture / Unknown 10/18/2024 8:20 AM EST 10/18/2024 10:40 AM EST Diaz Wills NP LAB BLOOD ORDERABLES Final Re sult [facility] [address] [place] [address], * (ABNORMAL) Hemoglobin A1c (10/18/2024 8:20 AM EST) Hemoglobin A1C 7.8(H) <6.5 % LAB CHEMISTRY METHOD 10/18/2024 8:46 PM EST [facility] Mean Bld Glu Estim. 177 mg/dL LAB CHEMISTRY METHOD 10/18/2024 8:46 PM EST [facility] Blood Venous blood specimen / Unknown Venipuncture / Unknown 10/18/2024 8:20 AM EST 10/18/2024 10:39 AM EST Diaz Wills LEGUILLON DEBEADER LAB BLOOD ORDERABLES Final Re sult [facility] [address] [place] [address], [place] [phone] * (ABNORMAL) Comprehensive metabolic panel (10/18/2024 8:20 AM EST) Sodium 134 133 - 145 mmol/L LAB CHEMISTRY METHOD 10/18/2024 11:17 AM [facility] Potassium 4.0 3.5 - 5.5 mmol/L LAB CHEMISTRY METHOD 10/18/2024 11:17 AM [facility] Chloride 103 96 - 110 mmol/L LAB CHEMISTRY METHOD 10/18/2024 11:17 AM [facility] CO2 26 21 - 32 mmol/L LAB CHEMISTRY METHOD 10/18/2024 11:17 AM [facility] Anion Gap 5 3 - 11 LAB CHEMISTRY METHOD 10/18/2024 11:17 AM [facility] Glucose 175(H) 70 - 100 mg/dL LAB CHEMISTRY METHOD 10/18/2024 11:17 AM [facility] BUN 31(H) 5 - 25 mg/dL LAB CHEMISTRY METHOD 10/18/2024 11:17 AM [facility] Creatinine 1.65(H) 0.70 - 1.30 mg/dL LAB CHEMISTRY METHOD 10/18/2024 11:17 AM [facility] eGFR 45(L) >=60 mL/min/1. 73m2 LAB CHEMISTRY METHOD 10/18/2024 11:17 AM [facility] Comment:Calculation based on the Chronic Kidney Disease Epidemiology Collaboration (CKD-EPI) equation refit without adjustment for race. BUN/Creatinine Ratio 18.8 LAB CHEMISTRY METHOD 10/18/2024 11:17 AM [facility] Calcium 9.5 8.5 - 10.5 mg/dL LAB CHEMISTRY METHOD 10/18/2024 11:17 AM [facility] AST (SGOT) 16 10 - 42 unit/L LAB CHEMISTRY METHOD 10/18/2024 11:17 AM [facility] ALT (SGPT) 26 10 - 60 unit/L LAB CHEMISTRY METHOD 10/18/2024 11:17 AM [facility] Alkaline Phosphatase 57 42 - 121 unit/L LAB CHEMISTRY METHOD 10/18/2024 11:17 AM [facility] Total Protein 7.4 6.0 - 8.0 g/dL LAB CHEMISTRY METHOD 10/18/2024 11:17 AM [facility] Albumin 3.7 3.2 - 5.0 g/dL LAB CHEMISTRY METHOD 10/18/2024 11:17 AM [facility] Total Bilirubin 0.5 0.0 - 1.4 mg/dL LAB CHEMISTRY METHOD 10/18/2024 11:17 AM [facility] Blood Venous blood specimen / Unknown Venipuncture / Unknown 10/18/2024 8:20 AM EST 10/18/2024 10:40 AM EST us Diaz Wills NP LAB BLOOD ORDERABLES Final Re sult [facility] [address] [place] [address], from Last 3 Months or Most Recently Relevant to Health Maintenance Insurance ED [facility] MEDICAID ADVANTAGE Care Teams Shell Press Operator Relationship Specialty Start Date End Date Aly Herzog MD [address] [place] [address] [place] [address] PCP - General Internal Medicine 10/29/20
--- OUTSIDE RECORDS SUMMARY | 2025-05-01 14:28 | XMS_ITS | Clinical Summary ---
Author Organization [employer] Address [address] [place] [address] [address] [place] [address] Care Team Providers Care Banking Analyst Name Role Phone Unavailable Primary Care Provider [...] COVID-19 Vaccine (1 - 2023-2 5 season) 2025 Influenza Vaccine (#1) 2025 RSV Patients and [...]
--- OUTSIDE RECORDS SUMMARY | 2025-05-01 14:28 | XMS_ITS | Clinical Summary ---
Author Organization [facility] Address [address] [address] Phone Care Team Providers Care Supply Specialist Name Role Phone Aly Herzog MD Primary Care Provider [phone] Allergies No known active allergies Medications clonazePAM (KlonoPIN) 0.5 MG tablet TAKE 1 TABLET BY MOUTH IN THE MORNING AND TAKE 2 TABLETS AT BEDTIME 08/02/20 21 Active ketoconazole (NIZORAL) 2 % shampoo 06/22/20 21 Active levothyroxine (SYNTHROID, LEVOTHROID) 75 MCG tablet Take 75 mcg by mouth 1 (one) time each day before breakfast Take on empty stomach 08/05/20 21 Active pravastatin (PRAVACHOL) 40 MG tablet Take 40 mg by mouth 1 (one) time each day Active folic acid (FOLVITE) 1 MG tablet Take 1 mg by mouth 1 (one) time each day Active Cholecalciferol (Vitamin D) 10 MCG/ML liquid Take by mouth Ac tive FLUoxetine (PROzac) 40 MG capsule TAKE 2 CAPSULES BY MOUTH ONCE DAILY IN THE MORNING 02/10/20 23 Active Drysol 20 % external solution APPLY SOLUTION TOPICALLY TO AREAS OF EXCESSIVE SWEATING (FOR EXAMPLE HANDS AND FEET) AT BEDTIME Active cinnamon 500 MG capsule as directed Orally Active sildenafil (VIAGRA) 100 MG tablet TAKE ONE TABLET BY MOUTH APPROXIMATELY 30 MINUTES BEFORE SEXUAL ACTIVITY. Active Dapagliflozin Propanediol (Farxiga) 10 MG tabletIndicatio ns:Chronic kidney disease stage 3B (HCC),Hypertens ion Take 10 mg by mouth 1 (one) time each day 90 tablet 3 04/05/20 24 Active lisinopril 5 MG tabletIndicatio ns:Chronic kidney disease stage 3B (HCC),Hypertens ion Take 1 tablet (5 mg total) by mouth 1 (one) time each day 90 tablet 3 10/10/19 25 026 Active Flaxseed, Linseed, (Flaxseed Oil) 1400 MG capsule Take 1,400 mg by mouth 1 (one) time each day Active MAGNESIUM PO Take 250 mg by mouth in the morning. Active Ozempic, 0.25 or 0.5 MG/DOSE, 2 MG/3ML solution pen-injector Inject 0.25 mg as directed 1 (one) time per week 02/17/20 Active Niacinamide 500 MG capsule 1 capsule in the morning and 1 capsule in the evening. Active metFORMIN (GLUCOPHAGE) 500 MG tablet TAKE 1 TABLET BY MOUTH ONCE DAILY WITH A MEAL 07/04/20 025 Discontin ued(Med List Maintenan ce) cyanocobalamin (VITAMIN B-12) 100 MCG tablet Take 50 mcg by mouth 1 (one) time each day 025 Discontin ued(Med List Maintenan ce) fluorouracil (EFUDEX) 5 % cream Apply topically 1 (one) time each day 09/10/19 025 Discontin ued(Med List Maintenan ce) Active Problems Problem Noted Date Diagnosed Date Chronic kidney disease stage 3B 04/06/2023 04/06/2023 Hemorrhage of colon due to diverticulosis 202204/06/2023 Acute nontraumatic kidney injury 04/06/2023 Hyperlipidemia 04/06/2023 04/06/2023 Acquired hypothyroidism 04/06/2023 04/06/20 Major depression, single episode 04/06/2023 04/06/2023 Hypertension 04/06/2023 04/06/2023 Type 2 diabetes mellitus without complication 04/06/2023 Vitamin D deficiency 04/06/2023 04/06/2023 Type 2 diabetes mellitus wit h diabetic chronic kidney disease 09/04/2021 Encounters Date Type Department Care Team Description 04/10/2025 8:15 AM EDT Office Visit [facility] [address] [address] Carley Vásquez ARNP Chronic kidney disease stage 3B (HCC) (Primary Dx); Hypertension; Vitamin D deficiency, not otherwise specified 03/17/2025 Orders Only [facility] [address] [address] Carley Vásquez ARNP Chronic kidney disease stage 3B (HCC); Hypertension; Vitamin D deficiency, not otherwise specified from Last 3 Months Family History Medical History Relation Comments Heart disease Father Hypertension Father Kidney disease Mother Relation Status Comments Father Alive Mother Social History Tobacco Use Types Packs/Day Years Used Date Smoking Tobacco: Never Smokeless Tobacco: Never Tobacco Cessation:Counseling Given: Not Answered Alcohol Use Standard Drinks/Week Comments Not Currently 0 (1 standard drink = 0.6 oz pur e alcohol) Sex and Gender Information Value Date Recorded Sex Assigned at Not on file Legal Sex Male 3:38 PM EDT Gender Identity Not on file Sexual Orientation Not on file Last Filed Vital Signs Vital Sign Reading Time Taken Comments Blood Pressure 130/80 04/10/2025 8:25 AM EDT Pulse 65 04/10/2025 8:25 AM EDT Temperature - - Respiratory Rate - - Oxygen Saturation 98% 04/10/2025 8:25 AM EDT Inhaled Oxygen Concentration - - Weight 89.3 kg (196 lb 12.8 oz) 04/10/2025 8:25 AM EDT Height 180.3 cm (5' 11 ) 03/18/2022 2:27 PM EDT Body Mass Index 27.45 03/18/2022 2:27 PM EDT Plan of Treatment Upcoming Encounters Date Type Department Care Team (Late st Contact Info) Description 10/11/2025 1:15 PM EST Office Visit [facility] [address] [phone] Carley Vásquez ARNP [address] [phone] Health Maintenance Due Date Last Done Comments Pneumococcal Vaccine: 50+ Years (1 of 2 - PCV) 1974 Colorectal Cancer Screening: Annual FOBT 2004 Colorectal Cancer Screening: Colonoscopy 2004 Colorectal Cancer Screening: Sigmoidoscopy 2004 Diabetes: Ophthalmology Exam 08/28/2021 Diabetes: Pedal Pulse Checked 08/28/2021 Diabetes: Sensory Foot Exam 08/28/2021 Diabetes: Visual Foot Exam 08/28/2021 Diabetes: Hemoglobin A1C 01/18/2025 025, 03/17/2022 Influenza Vaccine (#1) 2025 Hepatitis B Vaccine Aged Out No longe r eligible based on patient's age to complete this topic Procedures Procedure Name Priority Date/Time Associated Diagnosis Comments URINE ALBUMIN / CREATININE RATIO Routine 04/07/2025 10:43 AM EDT Chronic kidney disease stage 3B (HCC) Hypertension Vitamin D deficiency, not otherwise specified PROTEIN / CREATININE RATIO, URINE Routine 04/07/2025 10:43 AM EDT Chronic kidney disease stage 3B (HCC) Hypertension Vitamin D deficiency, not otherwise specified CBC Routine 04/07/2025 10:43 AM EDT Chronic kidney disease stage 3B (HCC) Hypertension Vitamin D deficiency, not otherwise specified RENAL FUNCTION PANEL Routine 04/07/2025 10:43 AM EDT Chronic kidney disease stage 3B (HCC) Hypertension Vitamin D deficiency, not otherwise specified PTH, INTACT Routine 04/07/2025 10:43 AM EDT Chronic kidney disease stage 3B (HCC) Hypertension Vitamin D deficiency, not otherwise specified HEMOGLOBIN A1C Routine 03/17/2022 10:50 AM EDT from Last 3 Months or Most Recently Relevant to Health Maintenance Results * Urine Protein / creatinine ratio (04/07/2025 10:43 AM EDT) Creatinine, Ur 170.2 Not Estab. mg/dL [facility] Protein, Ur 10.4 Not Estab. mg/dL [facility] Urine Protein/Creatin ine Ratio 61 0 - 200 mg/g creat [facility] Urine specimen (specimen) Urine specimen obtained by clean catch procedure / Unknown 04/07/2025 10:43 AM EDT 04/07/2025 [facility] URINE ORDERABLES Final Result Performing Organization Address City/[facility]/ZIP Co de Phone Number [facility] [address] [place] [address] * Urine Albumin / Creatinine Ratio (04/07/2025 10:43 AM EDT) Albumin, Urine 15.1 Not Estab. ug/mL [facility] Albumin/Creatin ine Ratio 9 0 - 29 mg/g creat [facility] Comment: Normal: 0 - 29 Moderately increased: 30 - 300 Severely increased: >300 Urine specimen (specimen) Urine specimen obtained by clean catch procedure / Unknown 04/07/2025 10:43 AM EDT 04/07/2025 [facility] LAB URINE ORDERABLES Final Result Performing Organization Address [facility] de Phone Number [facility] [address] [place] [address] * CBC (04/07/2025 10:43 AM EDT) WBC 5.4 3.4 - 10.8 x10E3/uL [facility] RBC 5.22 4.14 - 5.80 x10E6/uL [facility] Hemoglobin 16.0 13.0 - 17.7 g/dL [facility] Hematocrit 48.5 37.5 - 51.0 % [facility] MCV 93 79 - 97 fL [facility] MCH 30.7 26.6 - 33.0 pg [facility] MCHC 33.0 31.5 - 35.7 g/dL [facility] RDW 12.6 11.6 - 15.4 % [facility] Platelets 239 150 - 450 x10E3/uL [facility] Blood specimen (specimen) Venous blood / Unknown 04/07/2025 10:43 AM EDT 04/07/2025 Carley Vásquez [facility] LAB BLOOD ORDERABLES Final Result [facility] [address] [place] [address] * PTH, intact (04/07/2025 10:43 AM EDT) PTH 32 15 - 65 pg/mL [facility] Blood specimen (specimen) Venous blood / Unknown 04/07/2025 10:43 AM EDT 04/07/2025 [facility] LAB BLOOD ORDERABLES Final Result [facility] [address] [place] [address] * (ABNORMAL) Renal function panel (04/07/2025 10:43 AM EDT) Glucose 142(H) 70 - 99 mg/dL [facility] BUN 20 8 - 27 mg/dL [facility] Creatinine 1.59(H) 0.76 - 1.27 mg/dL [facility] eGFR CKD-EPI CR 2020 47(L) >59 mL/min/1.7 3 [facility] BUN/Creatinine Ratio 13 10 - 24 [facility] Sodium 139 134 - 144 mmol/L [facility] Potassium 4.6 3.5 - 5.2 mmol/L [facility] Chloride 99 96 - 106 mmol/L [facility] Bicarbonate (CO2) 23 20 - 29 mmol/L [facility] Calcium 9.5 8.6 - 10.2 mg/dL [facility] Albumin 4.6 3.9 - 4.9 g/dL [facility] Phosphorus 3.6 2.8 - 4.1 mg/dL [facility] Blood specimen (specimen) Venous blood / Unknown 04/07/2025 10:43 AM EDT 04/07/2025 Carley Vásquez [facility] BLOOD ORDERABLES Final Result [facility] [address] [place] [address] * (ABNORMAL) Hemoglobin A1c (03/17/2022 10:50 AM EDT) Hemoglobin A1C 6.3(H) (4.0-5.6) % [facility] Comment: MONITORING: In known diabetic patients, hemoglobin A1c targets should be discussed with health care provider. DIAGNOSTIC USE: The [place] Diabetes Association (ADA) and the World Health Organization (WHO) recommend the use of HbA1c to diagnose diabetes using a threshold of 6.5%. Patients who have an HbA1c between 5.7% and 6.4% are considered at increased risk for developing diabetes in the future. CAUTION: Falsely low HbA1c results may be observed in patients with hemolytic anemia, homozygous forms of abnormal hemoglobin (e.g. SS, CC, SC), , recent blood loss or hemoglobin F greater than 7%. Fructosamine may be used as an alternate test in these cases. REFERENCE: ADA: Standards of Medical Care in Diabetes 2020, The Journal of Clinical and Applied Research and Education Volume 43, Supplement 1 Testing performed or reported by [facility], a Service of [facility], [address] [place] [address] Sterling Ruiz MD, Filer Helper [facility]# [id number] 03/17/2022 10:5 0 AM EDT 03/17/2022 10:53 AM EDT us Al Jimenez MD LAB BLOOD ORDERABLES Final Re sult [facility] from Last 3 Months or Most Recently Relevant to Health Maintenance Insurance Care Teams Supply Specialist Relationship Specialty Start Date End Date Aly Herzog MD [address] [address] PCP - General Internal Medicine 06/13/21
--- OUTSIDE RECORDS SUMMARY | 2025-05-01 14:30 | XMS_ITS | Clinical Summary ---
Author Organization [facility] Address [address] [address] Phone Care Team Providers Care Pulper Tender Name Role Phone Aly Herzog MD Primary Care Provider Allergies No known active allergies Medications DRYSOL DAB-O-MATIC 20 % external solution APPLY SOLUTION TOPICALLY TO AREAS OF EXCESSIVE SWEATING (HANDS AND FEET) AT BEDTIME 2 Active cholecalciferol (VIT D3) 10 mcg/mL (400 unit/mL) oral drops Take by mouth. Activ e clonazePAM (KLONOPIN) 0.5 MG tablet 2 Active cyanocobalamin, vitamin B-12, 100 MCG tablet Take 50 mcg by mouth. Active FARXIGA 10 mg tablet 2 Active FLUoxetine (PROZAC) 20 MG capsule TAKE 1 CAPSULE BY MOUTH ONCE DAILY IN THE MORNING. TAKE WITH 40MG CAPSULE FOR A TOTAL OF 60MG 2 Active folic acid (FOLVITE) 1 MG tablet Take 1 mg by mouth. Active levothyroxine (SYNTHROID, LEVOTHROID) 75 MCG tablet TAKE 1 TABLET BY MOUTH ONCE DAILY IN THE MORNING ON AN EMPTY STOMACH 2 Active lisinopril (PRINIVIL,ZESTR IL) 10 MG tablet Take 10 mg by mouth daily. 2 Active pravastatin (PRAVACHOL) 40 MG tablet Take 40 mg by mouth daily. 2 Active mupirocin (BACTROBAN) 2 % ointment APPLY OINTMENT TOPICALLY TO AFFECTED WOUND TWICE DAILY FOR 14 DAYS 2 Active metFORMIN (GLUCOPHAGE) 500 MG tablet TAKE 1 TABLET BY MOUTH ONCE DAILY WITH A MEAL 1 Active propranoloL (INDERAL) 20 MG immediate release tablet Take 20 mg by mouth daily. Active Active Problems Problem Noted Date Diagnosed Date Basal cell carcinoma of left shoulder 05/20/2022 History of basal cell carcinoma 05/20/2022 Family history of skin cancer 05/20/2022 Family History Medical History Relation Comments Heart attack Father Relation Status Comments Father Mother Alive Social History Tobacco Use Types Packs/Day Years Used Date Smoking Tobacco: Never Smokeless Tobacco: Never Alcohol Use Standard Drinks/Week Comments Never 0 (1 standard drink = 0.6 oz pur e alcohol) Education Answer Date Recorded Are you interested in more education? Not on eric e 12/13/2022 Are you concerned about learning? Not on file 12/13/2022 No 12/13/2022 No 12/13/2022 Digital Access Answer Date Recorded No 01/11/2023 No 01/11/2023 No 01/11/2023 Reliable internet access at home? Not on file 01/11/2023 Device with a working camera? Not on file Sex and Gender Information Value Date Recorded Sex Assigned at Not on file Legal Sex Male 9:32 AM EDT Gender Identity Not on file Sexual Orientation Not on file Last Filed Vital Signs Vital Sign Reading Time Taken Comments Blood Pressure 98/55 05/20/2022 10:20 AM EDT Pulse 50 05/20/2022 10:20 AM EDT Temperature - - Respiratory Rate - - Oxygen Saturation - - Inhaled Oxygen Concentration - - Weight 87.9 kg (193 lb 12.8 oz) 022 10:20 AM EDT Height 176.5 cm (5' 9.5 ) 05/20/2022 10 :20 AM EDT Body Mass Index 28.21 05/20/2022 10:20 AM EDT Plan of Treatment Health Maintenance Due Date Last Done Comments Adult Td,Tdap Booster 1955 CREATININE LEVEL 1955 LIPID PANEL 1955 POTASSIUM LEVEL 1955 TSH LEVEL 1955 DEPRESSION SCREENING 1967 HEPATITIS C SCREENING 1973 SCREENING FOR DIABETES 1990 COLOGUARD 2000 COLONOSCOPY 2000 COLORECTAL CANCER SCREENING 2000 FIT TEST 2000 FOBT 2000 SIGMOIDOSCOPY 2000 VIRTUAL COLONOSCOPY 2000 PNEUMOCOCCAL VACCINES (50+ y ears) (1 of 1 - PCV) 2005 ZOSTER VACCINES (1 of 2) 2005 RSV VACCINE (1 - Risk 60-74 years 1-dose series) 2015 INFLUENZA VACCINE (#1) 2025 COVID-19 VACCINE (1 - 2023-2 5 season) 2025 SMOKING STATUS SCREENING (On ce After 26 Yrs) Completed 05/20/2022 HEPATITIS A VACCINES Aged Out No long er eligible based on patient's age to complete this topic HIB VACCINES Aged Out No longer eligi ble based on patient's age to complete this topic MENINGOCOCCAL VACCINES (ACWY) Aged Out No longer eligible based on patient's age to complete this topic MENINGOCOCCAL VACCINES (B) Aged Out N o longer eligible based on patient's age to complete this topic Medical Devices Not on file Insurance [employer] RE[employer] [facility] HMO REPLACEMENT [employer] RE[employer]PL[employer] [facility] MEDIC[facility] HMO REPLACEMENT Care Teams Pulper Tender Relationship Specialty Start Date End Date Aly Herzog MD [address] [place] [address] [address] [place] [address] PCP - General Internal Medicine 05/20/22 Additional Source Comments The information contained in this document represents components of the legal health record. It is not the complete legal health record.[facility]
--- OUTSIDE RECORDS SUMMARY | 2025-05-01 14:31 | XMS_ITS | Patient Health Record ---
[facility] Organization [facility] Address [address] [place] [address] Care Team Providers Care Library Sales Consultant Name Role Phone CHINO HERBERT Unavailable [phone] DEBORAHMAJOR OROZCO Unavailable [phone] Allergies No Known Allergies Results Component Value Reference Range Notes HEMOGLOBIN A1C Reviewed date:10/19/2024 07:50:30 AM Interpretation: Performing Lab: Notes/Report: Hemoglobin A1C 7.8 <6.5 % Mean Bld Glu Estim. 177 URINALYSIS WITH REFLEX MICRO SCOPIC Reviewed date:10/18/2024 11:16:46 AM Interpretation: Performing Lab: Notes/Report: Specific [place] Urine 1.028 1.003-1.030 pH, Urine 5.0 5.0-8.0 pH Leukocytes, Urine Negative Negative Nitrite, Urine Negative Negative Protein, Urine Negative <=Trace mg/dL Glucose, Urine >=1000 Negative mg/dL Ketones, Urine Negative Negative mg/dL Urobilinogen, Urine 0.2 0.2-1.0 mg/dL Bilirubin, Urine Negative Negative Blood, Urine Negative Negative PROSTATE SPECIFIC ANTIGEN KIERRA BATES Reviewed date:10/18/2024 11:55:01 AM Interpretation: Performing Lab: Notes/Report: The Siemens Advia Centaur Chemiluminescent Immunoassay is used. Results obtained with different assay methods or kits cannot be used interchangeably. Results cannot be interpreted as absolute evidence of the presence or absence of malignant disease. PSA 4.22 0.00-4.00 ng/mL COMPREHENSIVE METABOLIC PANE L Reviewed date:10/18/2024 11:55:37 AM Interpretation: Performing Lab: Notes/Report: Sodium 134 133-145 mmol/L Potassium 4.0 3.5-5.5 mmol/L Chloride 103 96-110 mmol/L CO2 26 21-32 mmol/L Anion Gap 5 3-11 Glucose 175 70-100 mg/dL BUN 31 5-25 mg/dL Creatinine 1.65 0.70-1.30 mg/dL eGFR 45 >=60 mL/min/1.73m2 Calculati on based on the Chronic Kidney Disease Epidemiology Collaboration (CKD-EPI) equation refit without adjustment for race. BUN/Creatinine Ratio 18.8 Calcium 9.5 8.5-10.5 mg/dL AST (SGOT) 16 10-42 unit/L ALT (SGPT) 26 10-60 unit/L Alkaline Phosphatase 57 42-121 unit/L Total Protein 7.4 6.0-8.0 g/dL Albumin 3.7 3.2-5.0 g/dL Total Bilirubin 0.5 0.0-1.4 mg/dL THYROID STIMULATING HORMONE Reviewed date:10/18/2024 11:55:01 AM Interpretation: Performing Lab: Notes/Report: TSH 1.35 0.40-4.00 mcIU/mL VITAMIN D 25 HYDROXY Reviewed date:10/18/2024 11:55:01 AM Interpretation: Performing Lab: Notes/Report: Vit D, 25-Hydroxy 47.4 30.0-80.0 ng/mL LIPID PANEL WITH REFLEX TO D IRECT LDL Reviewed date:10/18/2024 11:55:01 AM Interpretation: Performing Lab: Notes/Report: Cholesterol 176 0-200 mg/dL Triglycerides 252 0-150 mg/dL HDL 40 >=40 mg/dL LDL Calculated 86 0-100 mg/dL VLDL Cholesterol Domenic 50.4 Non HDL Chol. (LDL+VLDL) 136 <145 mg/dL Chol/HDL Ratio 4.4 0.0-4.4 CBC WITH AUTO DIFFERENTIAL Reviewed date:10/18/2024 11:16:46 AM Interpretation: Performing Lab: Notes/Report: WBC 6.7 4.8-10.8 K/mcL RBC 4.90 4.50-5.50 M/mcL Hemoglobin 14.7 13.5-17.5 g/dL Hematocrit 45.5 42.0-54.0 % MCV 92.3 79.0-98.0 FL MCH 29.8 27.0-32.0 pcg MCHC 32.3 32.0-37.0 g/dL RDW 12.3 11.0-15.0 % Platelets 223 130-400 K/mcL MPV 9.2 7.0-11.0 FL NRBC 0.0 <1.0 % NRBC Absolute 0.00 <0.10 K/mcL Neutrophils Relative 56.8 Lymphocytes Relative 32.6 Monocytes Relative 6.9 Eosinophils Relative 2.7 Basophils Relative 0.6 Immature Granulocytes Relative 0.4 Neutrophils Absolute 3.80 1.50-7.00 K/mcL Lymphocytes Absolute 2.18 1.00-5.00 K/mcL Monocytes Absolute 0.46 0.20-1.00 K/mcL Eosinophils Absolute 0.18 0.00-0.50 K/mcL Basophils Absolute 0.04 0.00-0.20 K/mcL Immature Granulocytes Absolute 0.03 0.00-0.03 K/mcL MICROALBUMIN CREATININE URIN E RATIO Reviewed date:10/18/2024 11:55:01 AM Interpretation: Performing Lab: Notes/Report: Creatinine, Urine 106.0 Microalb, Ur 9.4 0.0-29.0 mg/L Microalb/Creat Ratio 9 <30 mg/g creat PPC Hemoglobin A1C Reviewed date:02/16/2025 09:25:52 AM Interpretation:7.3 Performing Lab: Notes/Report: 7.3 Reason For Referral No Information Medications Medication SIG (Take, Route, Frequency, Duration) Notes Start Date End Date Status Sildenafil Citrate 100 MG TAKE ONE TABLE T BY MOUTH APPROXIMATELY 30 MINUTES BEFORE SEXUAL ACTIVITY.; Duration: 30 Active Doxycycline Active Vitamin B12 1000 MCG 1 tablet Orally Onc e a day Active Vitamin D 50 MCG (1999 [place]) 1 capsule Ora lly twice a week Active Mounjaro 2.5 MG/0.5ML 2.5mg Subcutaneous weekly; Duration: 28 days 02/16/2025 Active Farxiga 10 MG 1 tablet Orally Once a day; Duration: 90 days Active Doxycycline Hyclate 100 MG 1 tablet Oral ly Once a day Active Vitamin C 500 MG 1 tablet Orally Once a day Active FLUoxetine HCl 20 MG 1 capsule Orally On ce a day Active clonazePAM 0.5 MG 1 tablet Orally 3 ti mes a day Active Fish Oil 1000 MG 1 capsule Orally Onc e a day Active metFORMIN HCl 500 MG TAKE 1 TABLET BY MO UTH ONCE DAILY WITH A MEAL; Duration: 90 Active Folic Acid 1 MG 1 tablet Orally Once a day Active Ozempic (0.25 or 0.5 MG/DOSE) 2 MG/3ML 0.5mg weekly Subcutaneous weekly; Duration: 30 days 02/16/2025 Active Hydrocortisone 1 % 1 application Fountain Roller Assembler ally Once a day Active FreeStyle Lite Test - as directed In Vitro 025 Active Farxiga 10 MG 1 tablet Orally Once a day; Duration: 90 days Active Cinnamon 500 MG as directed Orally t wice a day Active Pravastatin Sodium 40 MG Take 1 tablet b y mouth once daily; Duration: 90 Active Flaxseed Oil 1400 MG as directed Orally Active Magnesium 250 MG 1 tablet with a meal Orally Once a day Active Lisinopril 5 MG Take 1 tablet by howard th once daily; Duration: 90 days Active Niacinamide 500 MG 1 capsule Orally twi ce a day Active Fluorouracil 5 % 1 application Fountain Roller Assembler ally Twice a day Active Levothyroxine Sodium 75 MCG TAKE 1 TABLE T BY MOUTH IN THE MORNING ON AN EMPTY STOMACH; Duration: 90 Active Immunizations Vaccine Route Administration Date Status Comme [facility] RSV-IGIV IM Intramuscular 08/04/2023 Administered Social History Tobacco Use: Social History Observation Description Date Details (start date - stop date) Never Smoker NA - NA Tobacco Use/Smoking Question Answer Notes Are you a nonsmoker Problems Problem Type SNOMED Code ICD Code Onset Dates Problem Status W/U Status Risk Notes Problem Hypothyroidism (30878265) Other specified hypothyroidism (E03.8) Active confirmed Problem Vitamin D deficiency (33458128) Vitamin D deficiency, unspecified (E55.9) Active confirmed Problem Hyperlipidemia (86311271) Hyperlipidemia, unspecified (E78.5) Active confirmed Problem Essential hypertension (53971594) Essential (primary) hypertension (I10) Active confirmed Problem Hemorrhage of colon due to diverticulosis (435353812027622) Diverticulosis of intestine, part unspecified, without perforation or abscess with bleeding (K57.91) Active confirmed Problem Adult health examination (853558583) Encounter for general adult medical examination without abnormal findings (Z00.00) Active confirmed Problem Lipid screening (628894675) Encounter for screening for lipoid disorders (Z13.220) Active confirmed Problem Colon cancer screening (685914375) Colon cancer screening (Z12.11) Active confirmed Problem Acquired hypothyroidism (839314870) Acquired hypothyroidism (E03.9) Active confirmed Problem Depressive disorder (disorder) (38671198) Depression, unspecified depression type (F32.9) Active confirmed Problem Acute kidney injury (68860945) Acute kidney injury (N17.9) Active confirmed Problem Vitamin D deficiency (00964541) Vitamin D deficiency (E55.9) Active confirmed Problem Accelerated essential hypertension (46376334) Accelerated essential hypertension (I10) Active confirmed Problem Diabetes mellitus screening (139388708) Diabetes mellitus screening (Z13.1) Active confirmed Problem Type II diabetes mellitus without complication (366215233) Type 2 diabetes mellitus without complication, without long-term current use of insulin (E11.9) Active confirmed Problem Chronic kidney disease stage 3B (disorder) (951904358) Stage 3b chronic kidney disease (N18.32) Active confirmed Problem Screening for osteoporosis (065345728) Osteoporosis screening (Z13.820) Active confirmed Problem Endocrine/metabol ic screening (244579169) Encounter for screening for endocrine disorder (Z13.29) Active confirmed Problem Abnormal metabolic state due to diabetes mellitus (928500432) Abnormal metabolic state due to diabetes mellitus (E11.9) Active confirmed Problem Screening for malignant neoplasm of prostate (047398413) Encounter for prostate cancer screening (Z12.5) Active confirmed Vital Signs Heart Rate 62 /min 02/16/2025 Oximetry 96 % 02/16/2025 Blood pressure diastolic 80 mm Hg 02/16/2025 Height 70 in 02/16/2025 Blood pressure systolic 124 mm Hg 02/16/2025 Weight 198 lbs 02/16/2025 BMI 28.41 kg/m2 02/16/2025 Encounters Encounter Location Date Provider Diagnosis [facility] [address] [address] 06/20/2024 MAJOR BORHOT Essential (primary) hypertension I10 ; Type 2 diabetes mellitus without complication, without long-term current use of insulin E11.9 ; Acquired hypothyroidism E03.9 ; Depression, unspecified depression type F32.9 ; Stage 3b chronic kidney disease N18.32 and Hyperlipidemia, unspecified E78.5 [facility] [address] [address] 10/19/2024 MAJOR BORHOT Essential (primary) hypertension I10 ; Type 2 diabetes mellitus without complication, without long-term current use of insulin E11.9 ; Acquired hypothyroidism E03.9 ; Depression, unspecified depression type F32.9 ; Stage 3b chronic kidney disease N18.32 and Hyperlipidemia, unspecified E78.5 [facility] [address] [address] 02/16/2025 MAJOR MAS Annual physical exam Z00.00 ; Encounter for screening for depression Z13.31 ; Encounter for screening for other disorder Z13.89 ; Advanced directives, counseling/discussion Z71.89 ; Essential (primary) hypertension I10 ; Type 2 diabetes mellitus without complication, without long-term current use of insulin E11.9 ; Acquired hypothyroidism E03.9 ; Depression, unspecified depression type F32.9 ; Stage 3b chronic kidney disease N18.32 ; Hyperlipidemia, unspecified E78.5 and Encounter for examination of blood pressure without abnormal findings Z01.30 [facility] [address] [address] 06/01/2024 MAJOR TGT Essential (primary) hypertension I10 [facility] [address] [place] [address] 03/08/2025 MAJOR [facility] [address] [address] 03/21/2025 [facility] Type 2 diabetes jaylin itus without complication, without long-term current use of insulin E11.9 [facility] [address] [address] 03/22/2025 MAJOR DEBORAHHOT Type 2 diabetes jaylin itus without complication, without long-term current use of insulin E11.9 [facility] [address] [address] 03/23/2025 MAJOR DEBORAHHOT Type 2 diabetes jaylin itus without complication, without long-term current use of insulin E11.[address] [facility] [address] [place] [address] 03/27/2025 MAJOR DEBORAHHOT Type 2 diabetes jaylin itus without complication, without long-term current use of insulin E11.[address] [facility] [address] [place] [address] 03/29/2025 MAJOR DEBORAHHOT Type 2 diabetes jaylin itus without complication, without long-term current use of insulin E11.9 [facility] [address] [facility] [address] [place] [address] 06/19/2024 CHINO HERBERT [facility] [address] [facility] [address] [place] [address] 03/23/2025 MAJOR SARABIA Type 2 diabetes jaylin itus without complication, without long-term current use of insulin E11.9 Assessments Encounter Date Diagnosis (ICD Code) Assessment Notes Treatment Notes Treatment Clinical Notes Section Notes 06/01/2024 Essential (primary) hypertension (ICD-10 - I10) 06/20/2024 Essential (primary) hypertension (ICD-10 - I10) Patient Presents for [facility] Acute Concerns/Problem List: 06/20/2024 Chronic conditions stable as below _update labs Hypertension Stable on ROMEL CKD IIIB, Creatinine 1.4-1.6, as high as 2.1, As well as metformin, renal ultrasound stable continue to trend. He is seeing a finance analyst who keeps track of his kidneys on sglt-2 DM, Stable, A1c 6.9 which is improved, well managed continue metformin at low dosing chemically euthyroid For Depression, continue SSRI and clonazepam Chronic kidney disease is usually silent Typical [...] your visit with your primary care or finance analyst So that the most recent data can [...] of regular coffee a day is okay Of note, some information is being carried forward from prior records for informational purposes only and is being cited so that efficiency, safety and quality of the patient's care is not compromised This note was prepared using voice recognition software and direct typing Please excuse inadvertent airplane flight attendant supervisor or typing errors, or uncorrected word substitutions Although every attempt has been made by the provider to proofread this document, occasional misspellings and typographical errors may still be present Due to the previous pandemic, and the use of personal protective equipment (PPE) This may decrease voice recognition accuracy Inadvertent airplane flight attendant supervisor errors may occur 10/19/2024 Essential (primary) hypertension (ICD-10 - I10) Acute Concerns/Problem List: 10/19/2024 Chronic conditions stable as below Continue blood pressure management Hypertension Stable on ROMEL, Lisinopril monotherapy 5 mg CKD IIIB, Creatinine 1.4-1.6, as high as 2.1, continue to trend. He is seeing a finance analyst who keeps track of his kidneys on sglt-2 A1c is up a little bit from 6.9 up to 7.8 chemically euthyroid For Depression, continue SSRI and clonazepam Discussed PSA Chronic kidney disease is usually silent Typical [...] your visit with your primary care or finance analyst So that the most recent data can [...] of regular coffee a day is okay Of note, some information is being carried forward from prior records for informational purposes only and is being cited so that efficiency, safety and quality of the patient's care is not compromised This note was prepared using voice recognition software and direct typing Please excuse inadvertent airplane flight attendant supervisor or typing errors, or uncorrected word substitutions Although every attempt has been made by the provider to proofread this document, occasional misspellings and typographical errors may still be present Due to the previous pandemic, and the use of personal protective equipment (PPE) This may decrease voice recognition accuracy Inadvertent airplane flight attendant supervisor errors may occur 02/16/2025 Encounter for screening for depression (ICD-10 - Z13.31) Acute Concerns/Problem List: 02/16/2025 Patient reporting issues with appetite suppression portion controlling and overeating We discussed coming off of metformin given his renal function and perhaps trying a GLP-1 with his SGLT He is amendable to this This will certainly help his appetite Continue blood pressure management Hypertension Stable on ROMEL, Lisinopril monotherapy 5 mg CKD IIIB, Creatinine 1.4-1.6, as high as 2.1, Followed by nephrology A1c downtrending to 7.3 chemically euthyroid For Depression, continue SSRI and clonazepam Discussed PSA Chronic kidney disease is usually silent Typical [...] your visit with your primary care or finance analyst So that the most recent data can [...] of regular coffee a day is okay Of note, some information is being carried forward from prior records for informational purposes only and is being cited so that efficiency, safety and quality of the patient's care is not compromised This note was prepared using voice recognition software and direct typing Please excuse inadvertent airplane flight attendant supervisor or typing errors, or uncorrected word substitutions Although every attempt has been made by the provider to proofread this document, occasional misspellings and typographical errors may still be present Due to the previous pandemic, and the use of personal protective equipment (PPE) This may decrease voice recognition accuracy Inadvertent airplane flight attendant supervisor errors may occur 02/16/2025 Annual physical exam (ICD-10 - Z00.00) Acute Concerns/Problem List: 02/16/2025 Patient reporting issues with appetite suppression portion controlling and overeating We discussed coming off of metformin given his renal function and perhaps trying a GLP-1 with his SGLT He is amendable to this This will certainly help his appetite Continue blood pressure management Hypertension Stable on ROMEL, Lisinopril monotherapy 5 mg CKD IIIB, Creatinine 1.4-1.6, as high as 2.1, Followed by nephrology A1c downtrending to 7.3 chemically euthyroid For Depression, continue SSRI and clonazepam Discussed PSA Chronic kidney disease is usually silent Typical [...] your visit with your primary care or finance analyst So that the most recent data can [...] of regular coffee a day is okay Of note, some information is being carried forward from prior records for informational purposes only and is being cited so that efficiency, safety and quality of the patient's care is not compromised This note was prepared using voice recognition software and direct typing Please excuse inadvertent airplane flight attendant supervisor or typing errors, or uncorrected word substitutions Although every attempt has been made by the provider to proofread this document, occasional misspellings and typographical errors may still be present Due to the previous pandemic, and the use of personal protective equipment (PPE) This may decrease voice recognition accuracy Inadvertent airplane flight attendant supervisor errors may occur 03/21/2025 Type 2 diabetes mellitus without complication, without long-term current use of insulin (ICD-10 - E11.9) 03/22/2025 Type 2 diabetes mellitus without complication, without long-term current use of insulin (ICD-10 - E11.9) 03/23/2025 Type 2 diabetes mellitus without complication, without long-term current use of insulin (ICD-10 - E11.9) 03/23/2025 Type 2 diabetes mellitus without complication, without long-term current use of insulin (ICD-10 - E11.9) 03/27/2025 Type 2 diabetes mellitus without complication, without long-term current use of insulin (ICD-10 - E11.9) 03/29/2025 Type 2 diabetes mellitus without complication, without long-term current use of insulin (ICD-10 - E11.9) 02/16/2025 Encounter for screening for other disorder (ICD-10 - Z13.89) Acute Concerns/Problem List: 02/16/2025 Patient reporting issues with appetite suppression portion controlling and overeating We discussed coming off of metformin given his renal function and perhaps trying a GLP-1 with his SGLT He is amendable to this This will certainly help his appetite Continue blood pressure management Hypertension Stable on ROMEL, Lisinopril monotherapy 5 mg CKD IIIB, Creatinine 1.4-1.6, as high as 2.1, Followed by nephrology A1c downtrending to 7.3 chemically euthyroid For Depression, continue SSRI and clonazepam Discussed PSA Chronic kidney disease is usually silent Typical [...] your visit with your primary care or finance analyst So that the most recent data can [...] of regular coffee a day is okay Of note, some information is being carried forward from prior records for informational purposes only and is being cited so that efficiency, safety and quality of the patient's care is not compromised This note was prepared using voice recognition software and direct typing Please excuse inadvertent airplane flight attendant supervisor or typing errors, or uncorrected word substitutions Although every attempt has been made by the provider to proofread this document, occasional misspellings and typographical errors may still be present Due to the previous pandemic, and the use of personal protective equipment (PPE) This may decrease voice recognition accuracy Inadvertent airplane flight attendant supervisor errors may occur 10/19/2024 Type 2 diabetes mellitus without complication, without long-term current use of insulin (ICD-10 - E11.9) Acute Concerns/Problem List: 10/19/2024 Chronic conditions stable as below Continue blood pressure management Hypertension Stable on ROMEL, Lisinopril monotherapy 5 mg CKD IIIB, Creatinine 1.4-1.6, as high as 2.1, continue to trend. He is seeing a finance analyst who keeps track of his kidneys on sglt-2 A1c is up a little bit from 6.9 up to 7.8 chemically euthyroid For Depression, continue SSRI and clonazepam Discussed PSA Chronic kidney disease is usually silent Typical [...] your visit with your primary care or finance analyst So that the most recent data can [...] of regular coffee a day is okay Of note, some information is being carried forward from prior records for informational purposes only and is being cited so that efficiency, safety and quality of the patient's care is not compromised This note was prepared using voice recognition software and direct typing Please excuse inadvertent airplane flight attendant supervisor or typing errors, or uncorrected word substitutions Although every attempt has been made by the provider to proofread this document, occasional misspellings and typographical errors may still be present Due to the previous pandemic, and the use of personal protective equipment (PPE) This may decrease voice recognition accuracy Inadvertent airplane flight attendant supervisor errors may occur 06/20/2024 Type 2 diabetes mellitus without complication, without long-term current use of insulin (ICD-10 - E11.9) Patient Presents for [facility] Acute Concerns/Problem List: 06/20/2024 Chronic conditions stable as below _update labs Hypertension Stable on ROMEL CKD IIIB, Creatinine 1.4-1.6, as high as 2.1, As well as metformin, renal ultrasound stable continue to trend. He is seeing a finance analyst who keeps track of his kidneys on sglt-2 DM, Stable, A1c 6.9 which is improved, well managed continue metformin at low dosing chemically euthyroid For Depression, continue SSRI and clonazepam Chronic kidney disease is usually silent Typical [...] your visit with your primary care or finance analyst So that the most recent data can [...] of regular coffee a day is okay Of note, some information is being carried forward from prior records for informational purposes only and is being cited so that efficiency, safety and quality of the patient's care is not compromised This note was prepared using voice recognition software and direct typing Please excuse inadvertent airplane flight attendant supervisor or typing errors, or uncorrected word substitutions Although every attempt has been made by the provider to proofread this document, occasional misspellings and typographical errors may still be present Due to the previous pandemic, and the use of personal protective equipment (PPE) This may decrease voice recognition accuracy Inadvertent airplane flight attendant supervisor errors may occur 10/19/2024 Acquired hypothyroidism (ICD-10 - E03.9) Acute Concerns/Problem List: 10/19/2024 Chronic conditions stable as below Continue blood pressure management Hypertension Stable on ROMEL, Lisinopril monotherapy 5 mg CKD IIIB, Creatinine 1.4-1.6, as high as 2.1, continue to trend. He is seeing a finance analyst who keeps track of his kidneys on sglt-2 A1c is up a little bit from 6.9 up to 7.8 chemically euthyroid For Depression, continue SSRI and clonazepam Discussed PSA Chronic kidney disease is usually silent Typical [...] your visit with your primary care or finance analyst So that the most recent data can [...] of regular coffee a day is okay Of note, some information is being carried forward from prior records for informational purposes only and is being cited so that efficiency, safety and quality of the patient's care is not compromised This note was prepared using voice recognition software and direct typing Please excuse inadvertent airplane flight attendant supervisor or typing errors, or uncorrected word substitutions Although every attempt has been made by the provider to proofread this document, occasional misspellings and typographical errors may still be present Due to the previous pandemic, and the use of personal protective equipment (PPE) This may decrease voice recognition accuracy Inadvertent airplane flight attendant supervisor errors may occur 06/20/2024 Acquired hypothyroidism (ICD-10 - E03.9) Patient Presents for [facility] Acute Concerns/Problem List: 06/20/2024 Chronic conditions stable as below _update labs Hypertension Stable on ROMEL CKD IIIB, Creatinine 1.4-1.6, as high as 2.1, As well as metformin, renal ultrasound stable continue to trend. He is seeing a finance analyst who keeps track of his kidneys on sglt-2 DM, Stable, A1c 6.9 which is improved, well managed continue metformin at low dosing chemically euthyroid For Depression, continue SSRI and clonazepam Chronic kidney disease is usually silent Typical [...] your visit with your primary care or finance analyst So that the most recent data can [...] of regular coffee a day is okay Of note, some information is being carried forward from prior records for informational purposes only and is being cited so that efficiency, safety and quality of the patient's care is not compromised This note was prepared using voice recognition software and direct typing Please excuse inadvertent airplane flight attendant supervisor or typing errors, or uncorrected word substitutions Although every attempt has been made by the provider to proofread this document, occasional misspellings and typographical errors may still be present Due to the previous pandemic, and the use of personal protective equipment (PPE) This may decrease voice recognition accuracy Inadvertent airplane flight attendant supervisor errors may occur 02/16/2025 Advanced directives, counseling/discuss ion (ICD-10 - Z71.89) Acute Concerns/Problem List: 02/16/2025 Patient reporting issues with appetite suppression portion controlling and overeating We discussed coming off of metformin given his renal function and perhaps trying a GLP-1 with his SGLT He is amendable to this This will certainly help his appetite Continue blood pressure management Hypertension Stable on ROMEL, Lisinopril monotherapy 5 mg CKD IIIB, Creatinine 1.4-1.6, as high as 2.1, Followed by nephrology A1c downtrending to 7.3 chemically euthyroid For Depression, continue SSRI and clonazepam Discussed PSA Chronic kidney disease is usually silent Typical [...] your visit with your primary care or finance analyst So that the most recent data can [...] of regular coffee a day is okay Of note, some information is being carried forward from prior records for informational purposes only and is being cited so that efficiency, safety and quality of the patient's care is not compromised This note was prepared using voice recognition software and direct typing Please excuse inadvertent airplane flight attendant supervisor or typing errors, or uncorrected word substitutions Although every attempt has been made by the provider to proofread this document, occasional misspellings and typographical errors may still be present Due to the previous pandemic, and the use of personal protective equipment (PPE) This may decrease voice recognition accuracy Inadvertent airplane flight attendant supervisor errors may occur 06/20/2024 Depression, unspecified depression type (ICD-10 - F32.9) Patient Presents for [facility] Acute Concerns/Problem List: 06/20/2024 Chronic conditions stable as below _update labs Hypertension Stable on ROMEL CKD IIIB, Creatinine 1.4-1.6, as high as 2.1, As well as metformin, renal ultrasound stable continue to trend. He is seeing a finance analyst who keeps track of his kidneys on sglt-2 DM, Stable, A1c 6.9 which is improved, well managed continue metformin at low dosing chemically euthyroid For Depression, continue SSRI and clonazepam Chronic kidney disease is usually silent Typical [...] your visit with your primary care or finance analyst So that the most recent data can [...] of regular coffee a day is okay Of note, some information is being carried forward from prior records for informational purposes only and is being cited so that efficiency, safety and quality of the patient's care is not compromised This note was prepared using voice recognition software and direct typing Please excuse inadvertent airplane flight attendant supervisor or typing errors, or uncorrected word substitutions Although every attempt has been made by the provider to proofread this document, occasional misspellings and typographical errors may still be present Due to the previous pandemic, and the use of personal protective equipment (PPE) This may decrease voice recognition accuracy Inadvertent airplane flight attendant supervisor errors may occur 10/19/2024 Depression, unspecified depression type (ICD-10 - F32.9) Acute Concerns/Problem List: 10/19/2024 Chronic conditions stable as below Continue blood pressure management Hypertension Stable on ROMEL, Lisinopril monotherapy 5 mg CKD IIIB, Creatinine 1.4-1.6, as high as 2.1, continue to trend. He is seeing a finance analyst who keeps track of his kidneys on sglt-2 A1c is up a little bit from 6.9 up to 7.8 chemically euthyroid For Depression, continue SSRI and clonazepam Discussed PSA Chronic kidney disease is usually silent Typical [...] your visit with your primary care or finance analyst So that the most recent data can [...] of regular coffee a day is okay Of note, some information is being carried forward from prior records for informational purposes only and is being cited so that efficiency, safety and quality of the patient's care is not compromised This note was prepared using voice recognition software and direct typing Please excuse inadvertent airplane flight attendant supervisor or typing errors, or uncorrected word substitutions Although every attempt has been made by the provider to proofread this document, occasional misspellings and typographical errors may still be present Due to the previous pandemic, and the use of personal protective equipment (PPE) This may decrease voice recognition accuracy Inadvertent airplane flight attendant supervisor errors may occur 02/16/2025 Essential (primary) hypertension (ICD-10 - I10) Acute Concerns/Problem List: 02/16/2025 Patient reporting issues with appetite suppression portion controlling and overeating We discussed coming off of metformin given his renal function and perhaps trying a GLP-1 with his SGLT He is amendable to this This will certainly help his appetite Continue blood pressure management Hypertension Stable on ROMEL, Lisinopril monotherapy 5 mg CKD IIIB, Creatinine 1.4-1.6, as high as 2.1, Followed by nephrology A1c downtrending to 7.3 chemically euthyroid For Depression, continue SSRI and clonazepam Discussed PSA Chronic kidney disease is usually silent Typical [...] your visit with your primary care or finance analyst So that the most recent data can [...] of regular coffee a day is okay Of note, some information is being carried forward from prior records for informational purposes only and is being cited so that efficiency, safety and quality of the patient's care is not compromised This note was prepared using voice recognition software and direct typing Please excuse inadvertent airplane flight attendant supervisor or typing errors, or uncorrected word substitutions Although every attempt has been made by the provider to proofread this document, occasional misspellings and typographical errors may still be present Due to the previous pandemic, and the use of personal protective equipment (PPE) This may decrease voice recognition accuracy Inadvertent airplane flight attendant supervisor errors may occur 10/19/2024 Stage 3b chronic kidney disease (ICD-10 - N18.32) Acute Concerns/Problem List: 10/19/2024 Chronic conditions stable as below Continue blood pressure management Hypertension Stable on ROMEL, Lisinopril monotherapy 5 mg CKD IIIB, Creatinine 1.4-1.6, as high as 2.1, continue to trend. He is seeing a finance analyst who keeps track of his kidneys on sglt-2 A1c is up a little bit from 6.9 up to 7.8 chemically euthyroid For Depression, continue SSRI and clonazepam Discussed PSA Chronic kidney disease is usually silent Typical [...] your visit with your primary care or finance analyst So that the most recent data can [...] of regular coffee a day is okay Of note, some information is being carried forward from prior records for informational purposes only and is being cited so that efficiency, safety and quality of the patient's care is not compromised This note was prepared using voice recognition software and direct typing Please excuse inadvertent airplane flight attendant supervisor or typing errors, or uncorrected word substitutions Although every attempt has been made by the provider to proofread this document, occasional misspellings and typographical errors may still be present Due to the previous pandemic, and the use of personal protective equipment (PPE) This may decrease voice recognition accuracy Inadvertent airplane flight attendant supervisor errors may occur 02/16/2025 Type 2 diabetes mellitus without complication, without long-term current use of insulin (ICD-10 - E11.9) Acute Concerns/Problem List: 02/16/2025 Patient reporting issues with appetite suppression portion controlling and overeating We discussed coming off of metformin given his renal function and perhaps trying a GLP-1 with his SGLT He is amendable to this This will certainly help his appetite Continue blood pressure management Hypertension Stable on ROMEL, Lisinopril monotherapy 5 mg CKD IIIB, Creatinine 1.4-1.6, as high as 2.1, Followed by nephrology A1c downtrending to 7.3 chemically euthyroid For Depression, continue SSRI and clonazepam Discussed PSA Chronic kidney disease is usually silent Typical [...] your visit with your primary care or finance analyst So that the most recent data can [...] of regular coffee a day is okay Of note, some information is being carried forward from prior records for informational purposes only and is being cited so that efficiency, safety and quality of the patient's care is not compromised This note was prepared using voice recognition software and direct typing Please excuse inadvertent airplane flight attendant supervisor or typing errors, or uncorrected word substitutions Although every attempt has been made by the provider to proofread this document, occasional misspellings and typographical errors may still be present Due to the previous pandemic, and the use of personal protective equipment (PPE) This may decrease voice recognition accuracy Inadvertent airplane flight attendant supervisor errors may occur 06/20/2024 Stage 3b chronic kidney disease (ICD-10 - N18.32) Patient Presents for [facility] Acute Concerns/Problem List: 06/20/2024 Chronic conditions stable as below _update labs Hypertension Stable on ROMEL CKD IIIB, Creatinine 1.4-1.6, as high as 2.1, As well as metformin, renal ultrasound stable continue to trend. He is seeing a finance analyst who keeps track of his kidneys on sglt-2 DM, Stable, A1c 6.9 which is improved, well managed continue metformin at low dosing chemically euthyroid For Depression, continue SSRI and clonazepam Chronic kidney disease is usually silent Typical [...] your visit with your primary care or finance analyst So that the most recent data can [...] of regular coffee a day is okay Of note, some information is being carried forward from prior records for informational purposes only and is being cited so that efficiency, safety and quality of the patient's care is not compromised This note was prepared using voice recognition software and direct typing Please excuse inadvertent airplane flight attendant supervisor or typing errors, or uncorrected word substitutions Although every attempt has been made by the provider to proofread this document, occasional misspellings and typographical errors may still be present Due to the previous pandemic, and the use of personal protective equipment (PPE) This may decrease voice recognition accuracy Inadvertent airplane flight attendant supervisor errors may occur 10/19/2024 Hyperlipidemia, unspecified (ICD-10 - E78.5) Acute Concerns/Problem List: 10/19/2024 Chronic conditions stable as below Continue blood pressure management Hypertension Stable on ROMEL, Lisinopril monotherapy 5 mg CKD IIIB, Creatinine 1.4-1.6, as high as 2.1, continue to trend. He is seeing a finance analyst who keeps track of his kidneys on sglt-2 A1c is up a little bit from 6.9 up to 7.8 chemically euthyroid For Depression, continue SSRI and clonazepam Discussed PSA Chronic kidney disease is usually silent Typical [...] your visit with your primary care or finance analyst So that the most recent data can [...] of regular coffee a day is okay Of note, some information is being carried forward from prior records for informational purposes only and is being cited so that efficiency, safety and quality of the patient's care is not compromised This note was prepared using voice recognition software and direct typing Please excuse inadvertent airplane flight attendant supervisor or typing errors, or uncorrected word substitutions Although every attempt has been made by the provider to proofread this document, occasional misspellings and typographical errors may still be present Due to the previous pandemic, and the use of personal protective equipment (PPE) This may decrease voice recognition accuracy Inadvertent airplane flight attendant supervisor errors may occur 06/20/2024 Hyperlipidemia, unspecified (ICD-10 - E78.5) Patient Presents for [facility] Acute Concerns/Problem List: 06/20/2024 Chronic conditions stable as below _update labs Hypertension Stable on ROMEL CKD IIIB, Creatinine 1.4-1.6, as high as 2.1, As well as metformin, renal ultrasound stable continue to trend. He is seeing a finance analyst who keeps track of his kidneys on sglt-2 DM, Stable, A1c 6.9 which is improved, well managed continue metformin at low dosing chemically euthyroid For Depression, continue SSRI and clonazepam Chronic kidney disease is usually silent Typical [...] your visit with your primary care or finance analyst So that the most recent data can [...] of regular coffee a day is okay Of note, some information is being carried forward from prior records for informational purposes only and is being cited so that efficiency, safety and quality of the patient's care is not compromised This note was prepared using voice recognition software and direct typing Please excuse inadvertent airplane flight attendant supervisor or typing errors, or uncorrected word substitutions Although every attempt has been made by the provider to proofread this document, occasional misspellings and typographical errors may still be present Due to the previous pandemic, and the use of personal protective equipment (PPE) This may decrease voice recognition accuracy Inadvertent airplane flight attendant supervisor errors may occur 02/16/2025 Acquired hypothyroidism (ICD-10 - E03.9) Acute Concerns/Problem List: 02/16/2025 Patient reporting issues with appetite suppression portion controlling and overeating We discussed coming off of metformin given his renal function and perhaps trying a GLP-1 with his SGLT He is amendable to this This will certainly help his appetite Continue blood pressure management Hypertension Stable on ROMEL, Lisinopril monotherapy 5 mg CKD IIIB, Creatinine 1.4-1.6, as high as 2.1, Followed by nephrology A1c downtrending to 7.3 chemically euthyroid For Depression, continue SSRI and clonazepam Discussed PSA Chronic kidney disease is usually silent Typical [...] your visit with your primary care or finance analyst So that the most recent data can [...] of regular coffee a day is okay Of note, some information is being carried forward from prior records for informational purposes only and is being cited so that efficiency, safety and quality of the patient's care is not compromised This note was prepared using voice recognition software and direct typing Please excuse inadvertent airplane flight attendant supervisor or typing errors, or uncorrected word substitutions Although every attempt has been made by the provider to proofread this document, occasional misspellings and typographical errors may still be present Due to the previous pandemic, and the use of personal protective equipment (PPE) This may decrease voice recognition accuracy Inadvertent airplane flight attendant supervisor errors may occur 02/16/2025 Depression, unspecified depression type (ICD-10 - F32.9) Acute Concerns/Problem List: 02/16/2025 Patient reporting issues with appetite suppression portion controlling and overeating We discussed coming off of metformin given his renal function and perhaps trying a GLP-1 with his SGLT He is amendable to this This will certainly help his appetite Continue blood pressure management Hypertension Stable on ROMEL, Lisinopril monotherapy 5 mg CKD IIIB, Creatinine 1.4-1.6, as high as 2.1, Followed by nephrology A1c downtrending to 7.3 chemically euthyroid For Depression, continue SSRI and clonazepam Discussed PSA Chronic kidney disease is usually silent Typical [...] your visit with your primary care or finance analyst So that the most recent data can [...] of regular coffee a day is okay Of note, some information is being carried forward from prior records for informational purposes only and is being cited so that efficiency, safety and quality of the patient's care is not compromised This note was prepared using voice recognition software and direct typing Please excuse inadvertent airplane flight attendant supervisor or typing errors, or uncorrected word substitutions Although every attempt has been made by the provider to proofread this document, occasional misspellings and typographical errors may still be present Due to the previous pandemic, and the use of personal protective equipment (PPE) This may decrease voice recognition accuracy Inadvertent airplane flight attendant supervisor errors may occur 02/16/2025 Stage 3b chronic kidney disease (ICD-10 - N18.32) Acute Concerns/Problem List: 02/16/2025 Patient reporting issues with appetite suppression portion controlling and overeating We discussed coming off of metformin given his renal function and perhaps trying a GLP-1 with his SGLT He is amendable to this This will certainly help his appetite Continue blood pressure management Hypertension Stable on ROMEL, Lisinopril monotherapy 5 mg CKD IIIB, Creatinine 1.4-1.6, as high as 2.1, Followed by nephrology A1c downtrending to 7.3 chemically euthyroid For Depression, continue SSRI and clonazepam Discussed PSA Chronic kidney disease is usually silent Typical [...] your visit with your primary care or finance analyst So that the most recent data can [...] of regular coffee a day is okay Of note, some information is being carried forward from prior records for informational purposes only and is being cited so that efficiency, safety and quality of the patient's care is not compromised This note was prepared using voice recognition software and direct typing Please excuse inadvertent airplane flight attendant supervisor or typing errors, or uncorrected word substitutions Although every attempt has been made by the provider to proofread this document, occasional misspellings and typographical errors may still be present Due to the previous pandemic, and the use of personal protective equipment (PPE) This may decrease voice recognition accuracy Inadvertent airplane flight attendant supervisor errors may occur 02/16/2025 Hyperlipidemia, unspecified (ICD-10 - E78.5) Acute Concerns/Problem List: 02/16/2025 Patient reporting issues with appetite suppression portion controlling and overeating We discussed coming off of metformin given his renal function and perhaps trying a GLP-1 with his SGLT He is amendable to this This will certainly help his appetite Continue blood pressure management Hypertension Stable on ROMEL, Lisinopril monotherapy 5 mg CKD IIIB, Creatinine 1.4-1.6, as high as 2.1, Followed by nephrology A1c downtrending to 7.3 chemically euthyroid For Depression, continue SSRI and clonazepam Discussed PSA Chronic kidney disease is usually silent Typical [...] your visit with your primary care or finance analyst So that the most recent data can [...] of regular coffee a day is okay Of note, some information is being carried forward from prior records for informational purposes only and is being cited so that efficiency, safety and quality of the patient's care is not compromised This note was prepared using voice recognition software and direct typing Please excuse inadvertent airplane flight attendant supervisor or typing errors, or uncorrected word substitutions Although every attempt has been made by the provider to proofread this document, occasional misspellings and typographical errors may still be present Due to the previous pandemic, and the use of personal protective equipment (PPE) This may decrease voice recognition accuracy Inadvertent airplane flight attendant supervisor errors may occur 02/16/2025 Encounter for examination of blood pressure without abnormal findings (ICD-10 - Z01.30) Acute Concerns/Problem List: 02/16/2025 Patient reporting issues with appetite suppression portion controlling and overeating We discussed coming off of metformin given his renal function and perhaps trying a GLP-1 with his SGLT He is amendable to this This will certainly help his appetite Continue blood pressure management Hypertension Stable on ROMEL, Lisinopril monotherapy 5 mg CKD IIIB, Creatinine 1.4-1.6, as high as 2.1, Followed by nephrology A1c downtrending to 7.3 chemically euthyroid For Depression, continue SSRI and clonazepam Discussed PSA Chronic kidney disease is usually silent Typical [...] your visit with your primary care or finance analyst So that the most recent data can [...] of regular coffee a day is okay Of note, some information is being carried forward from prior records for informational purposes only and is being cited so that efficiency, safety and quality of the patient's care is not compromised This note was prepared using voice recognition software and direct typing Please excuse inadvertent airplane flight attendant supervisor or typing errors, or uncorrected word substitutions Although every attempt has been made by the provider to proofread this document, occasional misspellings and typographical errors may still be present Due to the previous pandemic, and the use of personal protective equipment (PPE) This may decrease voice recognition accuracy Inadvertent airplane flight attendant supervisor errors may occur Plan Of Treatment Pending Test Test Name Order Date Hemoglobin A1c 12/13/2020 Basic Metabolic Panel (8) 12/13/2020 Bone Density 12/25/2022 25OH VITAMIN D 08/04/2023 25OH VITAMIN D 12/13/2020 25OH VITAMIN D 09/06/2021 BASIC METABOLIC PANEL 11/17/2022 CBC (COMPLETE BLOOD COUNT) 09/06/2021 CBC (COMPLETE BLOOD COUNT) 11/08/2020 CBC (COMPLETE BLOOD COUNT) 12/25/2022 CBC (COMPLETE BLOOD COUNT) 06/11/2020 CBC (COMPLETE BLOOD COUNT) 08/04/2023 COMPREHENSIVE METABOLIC PANEL 08/04/2023 COMPREHENSIVE METABOLIC PANEL 12/25/2022 COMPREHENSIVE METABOLIC PANEL 11/08/2020 COMPREHENSIVE METABOLIC PANEL 09/06/2021 COMPREHENSIVE METABOLIC PANEL 06/11/2020 HEMOGLOBIN A1C 06/11/2020 HEMOGLOBIN A1C 09/06/2021 HEMOGLOBIN A1C 11/08/2020 HEMOGLOBIN A1C 12/25/2022 HEMOGLOBIN A1C 08/04/2023 LIPID PANEL 12/25/2022 LIPID PANEL 08/04/2023 LIPID PANEL 06/11/2020 LIPID PANEL 09/06/2021 MICROALBUMIN, URINE 06/06/2021 PSA, SCREEN 08/04/2023 PSA, SCREEN 09/06/2021 PSA, SCREEN 06/20/2024 TSH 11/08/2020 TSH 08/04/2023 TSH WITH REFLEX TO FT4 09/06/2021 URINALYSIS W/REFLEX CULTURE 08/04/2023 URINALYSIS, COMPLETE 06/11/2020 URINALYSIS, COMPLETE 09/06/2021 MICROALB/CREAT RATIO, RANDOM 06/20/2024 LIPID PANEL, STANDARD 06/20/2024 COMPREHENSIVE METABOLIC PANEL 06/20/2024 CBC (INCLUDES DIFF/PLT) 06/20/2024 URINALYSIS, COMPLETE 06/20/2024 HEMOGLOBIN A1c 06/20/2024 TSH 06/20/2024 VITAMIN D,25-OH,TOTAL,IA 06/20/2024 COMPLETE URINALYSIS 12/25/2022 US Renal 03/07/2021 Future Test Test Name Order Date BASIC METABOLIC PANEL 09/06/2021 HEMOGLOBIN A1C 09/06/2021 MICROALBUMIN, URINE 09/06/2021 T4, TOTAL 01/10/2022 TSH 01/10/2022 HEMOGLOBIN A1C 05/01/2022 T4, TOTAL 05/01/2022 TSH 05/01/2022 HEMOGLOBIN A1C 08/17/2022 T4, TOTAL 08/17/2022 TSH WITH REFLEX TO FT4 08/17/2022 25OH VITAMIN D 12/19/2022 CBC (COMPLETE BLOOD COUNT) WITH DIFF 12/2022 COMPREHENSIVE METABOLIC PANEL 12/19/2022 HEMOGLOBIN A1C 12/19/2022 LIPID PANEL 12/19/2022 PSA, SCREEN 12/19/2022 TSH WITH REFLEX TO FT4 12/19/2022 URINALYSIS W/REFLEX CULTURE 12/19/2022 Next Appt Details Provider Name:MAJOR SARABIA, 05/19/2025 09:00:00 AM, [address], [facility], [place], [address], Insurance Providers Payer Name Payer Address Payer Phone Subscriber Number Group Number Insured Name Patient Relationship to Insured Coverage Start Date Coverage End Date [facility] [address] [place] [address] [id number] LAMBERTO MELENDREZ Self - patient is the insured Medical (General) History Medical History History ICD Code hypertension hyperlipidemia diabetes mellitus anxiety depression
== END 2025-05-01 11:21 | disposition home or self-care (01) ==
LOC: HO.HMGAL 10:54
PROVIDERS: PCP Internal Medicine; Visit Provider Registered Nurse Emergency
DX: J30.89 Other allergic rhinitis (principal)
CPT/HCPCS: 95117; 95165

== ENCOUNTER 2025-05-31 11:43 | Outpatient (AMB) | payer MEDICARE, SELFPAY ==
--- OUTSIDE RECORDS SUMMARY | 2025-05-31 14:52 | XMS_ITS | Clinical Summary ---
Author Organization [facility] Address [address] [address] Phone Care Team Providers Care Crutching Contractor Name Role Phone Aly Herzog MD Primary Care Provider [phone] Allergies No known active allergies Medications DRYSOL [...] DEPRESSION SCREENING 1967 HEPATITIS C SCREENING 1973 COLOGUARD 2000 COLONOSCOPY 2000 COLORECTAL CANCER SCREENING 2000 FIT TEST 2000 FOBT 2000 SIGMOIDOSCOPY 2000 VIRTUAL COLONOSCOPY 2000 PNEUMOCOCCAL VACCINES (50+ y ears) (1 of 1 - PCV) 2005 RSV VACCINE (1 - Risk 50-74 years 1-dose series) 2005 ZOSTER VACCINES (1 of 2) 2005 INFLUENZA VACCINE (#1) 2025 COVID-19 VACCINE (1 - 2024-2 6 season) 2025 SMOKING STATUS SCREENING (On ce [...] topic Medical Devices Not on file Insurance [address] [facility] [place] [employer] [place] [employer] H[place]ACEMENT Member Subscriber Plan / Payer (Ef fective 2022-Present) Name:Adrian Mancilla Relation to Subscriber:Self Name:Adrian Mancilla Payer ID:Not on file Type:Medicare Address: [place] [id number] [employer] [place] [employer] H[employer] REPLACEMENT [employer] [place] [employer] [place] REPLACEMENT [employer] [place] [employer]PLACEMENT [employer] [place] [employer] [place] REPLACEMENT [facility] MED[facility] HMO REPLACEMENT [facility] MED[facility] HMO [facility]PLACEMENT [facility] MED[facility] HMO REPLACEMENT [facility] MEDIC[facility] HMO REPLACEMENT Care Teams Crutching Contractor Relationship Specialty Start Date End Date Aly Herzog MD [address] [facility] [address] [place] [address] PCP - General Internal Medicine 05/20/22 Additional Source Comments The information contained in this document represents components of the legal health record. It is not the complete legal health record.[facility]
--- OUTSIDE RECORDS SUMMARY | 2025-05-31 14:52 | XMS_ITS | Encounter Summary ---
Author Organization [employer] Address [address] [place] [address] 7 [place] [address] Care Team Providers Care Sap Payroll Consultant Name Role Phone Unavailable Primary Care Provider Unavailabl e Encounter Details Date Type Department Care Team (Latest Contact Info) Description 08/16/2019 Abstract [facility] CONVERSION[facility] Dental, Provider, DDS Social History Tobacco [...]
--- OUTSIDE RECORDS SUMMARY | 2025-05-31 14:52 | XMS_ITS | Clinical Summary ---
Author Organization [employer] Address [address] [place] [address] 7t [place] [address] Care Team Providers Care Biomedical Engineering Internship Name Role Phone Unavailable Primary Care Provider [...]
--- OUTSIDE RECORDS SUMMARY | 2025-05-31 14:52 | XMS_ITS | Clinical Summary ---
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 Mixed hyperlipidemia 01/23/2025 Assessment & Plan (01/23/2025 [...] Encounters Date Type Department Care Team Description 05/24/2025 9:30 AM EDT Ancillary Procedure [facility] [address] [place] [address] Aortic valve stenosis, etiology of cardiac valve disease unspecified from Last 3 Months Family History Medical [...] Sign Reading Time Taken Comments Blood Pressure 110/64 05/24/2025 10:12 AM EDT Pulse 68 01/23/2025 9:03 AM EDT Temperature - - Respiratory Rate - - Oxygen Saturation 98% 01/23/2025 9:03 AM EDT Inhaled Oxygen Concentration - - Weight 85.7 kg (189 lb) 05/24/2025 10:12 AM EDT Height 180.3 cm (5' 11 ) 05/24/2025 10:12 AM EDT Body Mass Index 26.36 05/24/2025 10:12 AM EDT Plan of Treatment Health Maintenance Due Date Last Done Comments Colorectal Cancer Screening: Colonoscopy 1955 COVID-19 Vaccine (#1) 1960 Diabetes: Annual Foot Exam 1965 Diabetes: Annual Retina Eye Exam 1965 DTaP,Tdap,and Td Vaccines (1 - Tdap) 1974 Zoster Vaccines (1 of 2) 1974 Pneumococcal Vaccine: 50+ Years (1 of 1 - PCV) 2005 RSV Immunization Adult Patients (1 - Risk 50-74 years 1-dose series) 2005 Falls Risk Assessment 07/16/2022 Hepatitis C Screening 07/16/2022 Social Influencers of Health Screening 07/16/2022 Depression Screening 08/17/2024 Influenza Vaccine (#1) 2025 Diabetes: Blood Sugar Contro l Test (HGBA1C) 04/20/2025 10/18/2024, 03/17/2022 Diabetes: Annual GFR (Glomerular Filtration Rate) 10/18/2025 10/18/2024 Hypertension/CHF/CAD Annual BMP Blood Test 10/18/2025 10/18/2024 Diabetes: Annual Urine Albumin-Creatinine Ratio (uACR) 04/07/2026 04/07/2025, 10/18/2024 Cholesterol Screening (Lipid Panel) 10/18/2029 10/18/2024 [...] Procedure Name Priority Date/Time Associated Diagnosis Comments TRANSTHORACIC ECHOCARDIOGRAM (TTE) COMPLETE Routine 05/24/2025 10:13 AM EDT Aortic valve stenosis, etiology of cardiac valve disease unspecified MICROALBUMIN CREATININE URINE RATIO Routine 10/18/2024 8:29 [...] Recently Relevant to Health Maintenance Results * (ABNORMAL) TRANSTHORACIC ECHOCARDIOGRAM (TTE) COMPLETE (05/24/2025 10:13 AM EDT) Left Atrium Minor [place] 3.9 cm CV PACS Left Atrium Major [place] 4.3 cm CV PACS LA Area Sys (A2C) 14 cm2 CV PACS LA Area Sys (A4C) 13 cm2 CV PACS LA Volume (BP) 35 mL CV PACS RA Area 10.2 cm2 CV PACS RA 2D Volume 19 mL CV PACS AV Mean Gradient 27 mmHg CV PACS Ao VTI 75.8 cm CV PACS AV Peak Pollo 3.6 m/s CV PACS AV Peak Gradient 52 mmHg CV PACS AV Area Continuity Equation 0.7 cm2 CV PACS AV Area Peak Velocity 0.7 cm2 CV PACS Aortic Sinus Valsalva 3.7 cm CV PACS Ascending Aorta 3.8 cm CV PACS IVSD 1.1(A) 0.6 - 1.0 cm CV PACS LVIDD 4.5 4.2 - 5.8 cm CV PACS LVIDS 2.4(A) 2.5 - 4.0 cm CV PACS LVOT Diameter 1.9 cm CV PACS LVOT Mean Pollo 0.6 m/s CV PACS LVOT Mean Grad 2 mmHg CV PACS LVOT Peak VTI 19.6 cm CV PACS LVOT Peak Pollo 0.9 m/s CV PACS LVOT Peak Gradient 3 mmHg CV PACS LVPWD 1.2(A) 0.6 - 1.0 cm CV PACS MV E' Tissue Velocity Lateral 9 cm/s CV PACS MV E' Tissue Velocity Septal 6 cm/s CV PACS LVOT Area 2.8 cm2 CV PACS LVOT Stroke Volume 56 mL CV PACS E Wave Deceleration Time 243(A) 119 - 242 ms CV PACS MV Peak A Pollo 0.63 m/s CV PACS MV Peak E Pollo 0.57 m/s CV PACS MV Mean Gradient 1 mmHg CV PACS MV Mean Gradient 1 mmHg CV PACS MV Mean Gradient 1 mmHg CV PACS MV VTI 25.7 cm CV PACS Mitral Valve Max Velocity 0.8 m/s CV PACS MV Peak Gradient 3 mmHg CV PACS MV Area Continuity Equation 2.2 cm2 CV PACS PV Acceleration Time 127 ms CV PACS PV Acceleration Time 116 ms CV PACS PV Acceleration Time 122 ms CV PACS RV Diastolic Basal Dimension 3.8 2.5 - 4.1 cm CV PACS RV S' 14 cm/s CV PACS TAPSE 21 mm CV PACS TR Peak Velocity 2.34 m/s CV PACS TR Peak Gradient 22 mmHg CV PACS E/E' Ratio Septal 10 CV PACS E/E' Ratio Averaged 8 CV PACS Relative Wall Thickness ratio 0.53 CV PACS LVOT:AV VTI Index 0.26 CV PACS FS 47 % CV PACS LV Mass 2D 186 g CV PACS MV VTI:LVOT VTI ratio 1.3 CV PACS LVOT flow 170 mL/s CV PACS AV Velocity Ratio 0.25 CV PACS E/A Ratio 0.9 CV PACS E/E' Ratio Lateral 6 CV PACS BSA 2.07 m2 CV PACS LA Volume Index (BP) 17 mL/m2 CV PACS LVIDD Index 2.18 cm/m2 CV PACS LVIDS Index 1.17 cm/m2 CV PACS LV Mass Index 2D 90 50 - 102 g/m2 CV PACS LVOT Stroke Index 27 mL/m2 CV PACS RA 2D Volume Index 9(A) 18 - 32 mL/m2 CV PACS SUKHJINDER Index (VTI) 0.36 cm2/m2 CV PACS SUKHJINDER Index (Pk Pollo) 0.34 cm2/m2 CV PACS Ascending Aorta Index 1.84 cm/m2 CV PACS Anatomical Region Laterality Modality Ultrasound Narrative 05/30/2025 9:36 AM EDT Left ventricle cavity size is normal. Left ventricular systolic function is in the normal range with an ejection fraction of 55-60%. No regional LV wall motion abnormalities noted. Left ventricle mild concentric hypertrophy. Right ventricle cavity is normal. Right ventricular systolic function is normal. Aortic valve demonstrates moderate stenosis. Compared to 2023, there is mild progression of the aortic stenosis. Left Ventricle Left ventricle cavity size is normal. There is mild concentric hypertrophy. Systolic function is normal with an ejection fraction of 55-60%. There are no regional LV wall motion abnormalities. There is age appropriate left ventricular diastolic function. Right Ventricle Right ventricle cavity appears normal. Systolic function is normal. Left Atrium Left atrium cavity size is normal. Right Atrium Right atrium cavity is normal. IVC/SVC Inferior vena cava structure is normal. RA pressures is estimated to be 3 mmHg (IVC diameter <21 mm and decreases >50% during inspiration). Mitral Valve The leaflets are mildly thickened. There is mild annular calcification. There is no significant mitral valve regurgitation. There is no evidence of mitral valve stenosis. Tricuspid Valve Tricuspid valve structure is normal. There is trace regurgitation. There is no evidence of tricuspid valve stenosis. Aortic Valve The aortic valve is trileaflet. The leaflets are mildly thickened and exhibit moderately reduced excursion. There is mild regurgitation. There is moderate stenosis, with a mean gradient of 27 mmHg through the valve. Pulmonic Valve Visualized portions of the pulmonic valve appear normal. No significant pulmonic valve regurgitation. There is no evidence of pulmonic valve stenosis. Ascending Aorta The aorta appears normal in size. Pericardium Pericardium appears normal. There is no pericardial effusion. Study Details Overall the study quality was adequate. Wall Scoring Baseline Score Index: 1.00 The left ventricular wall motion is normal. us Bernadette Beltran NP CV ECHO PROCEDURES [facility] al Result * Microalbumin creatinine urine ratio (10/18/2024 8:29 AM EST) Creatinine, Urine 106.0 mg/dL LAB CHEMISTRY METHOD 10/18/2024 11:[address] [facility] Microalb, Ur 9.4 0.0 - 29.0 mg/L LAB CHEMISTRY METHOD 10/18/2024 11:43 AM [facility] Microalb/Creat Ratio 9 <30 mg/g creat LAB CHEMISTRY METHOD 10/18/2024 11:43 AM [facility] Urine Urine specimen obtained by clean catch procedure / Unknown Non-blood Collection / Unknown 10/18/2024 8:29 AM EST 10/18/2024 10:48 AM EST us Diaz Wills FISH FARM MANAGER LAB URINE ORDERABLES Final Re sult [facility] [address] [place] [address], [place] [phone] * (ABNORMAL) Lipid panel with reflex to direct LDL (10/18/2024 8:20 AM EST) Cholesterol 176 0 - 200 mg/dL LAB CHEMISTRY METHOD 10/18/2024 11:17 AM [facility] Triglycerides 252(H) 0 - 150 mg/dL LAB CHEMISTRY METHOD 10/18/2024 11:17 AM [facility] HDL 40 >=40 mg/dL LAB CHEMISTRY METHOD 10/18/2024 11:17 AM [facility] LDL Calculated 86 0 - 100 mg/dL LAB CHEMISTRY METHOD 10/18/2024 11:17 AM [facility] VLDL Cholesterol Domenic 50.4 mg/dL LAB CHEMISTRY METHOD 10/18/2024 11:17 AM [facility] Non HDL Chol. (LDL+VLDL) 136 <145 mg/dL LAB CHEMISTRY METHOD 10/18/2024 11:17 AM [facility] Chol/HDL Ratio 4.4 0.0 - 4.4 LAB CHEMISTRY METHOD 10/18/2024 11:17 AM [facility] Blood Venous blood specimen / Unknown Venipuncture / Unknown 10/18/2024 8:20 AM EST 10/18/2024 10:40 AM EST Diaz Wills FISH FARM MANAGER LAB BLOOD ORDERABLES Final Re sult Performing Organization Address [facility]/ZIP Co de Phone Number [facility] [address] [place] [address], [place] [phone] * (ABNORMAL) Hemoglobin A1c (10/18/2024 8:20 AM EST) Pathologist [facility] Hemoglobin A1C 7.8(H) <6.5 % LAB CHEMISTRY METHOD 10/18/2024 8:46 PM EST [facility] Mean Bld Glu Estim. 177 mg/dL LAB CHEMISTRY METHOD 10/18/2024 8:46 PM EST [facility] Blood Venous blood specimen / Unknown Venipuncture / Unknown 10/18/2024 8:20 AM EST 10/18/2024 10:39 AM EST Diaz Wills FISH FARM MANAGER LAB BLOOD ORDERABLES Final Re sult Performing Organization Address City/[facility]/ZIP Co de Phone Number [facility] [address] [place] [address], [place] [phone] * (ABNORMAL) Comprehensive metabolic panel (10/18/2024 8:20 AM EST) Pathologist [facility] Sodium 134 133 - 145 mmol/L LAB CHEMISTRY METHOD 10/18/2024 11:17 AM EST [facility] Potassium 4.0 3.5 - 5.5 mmol/L LAB CHEMISTRY METHOD 10/18/2024 11:17 AM EST [facility] Chloride 103 96 - 110 mmol/L LAB CHEMISTRY METHOD 10/18/2024 11:17 AM EST [facility] CO2 26 21 - 32 mmol/L LAB CHEMISTRY METHOD 10/18/2024 11:17 AM EST [facility] Anion Gap 5 3 - 11 LAB CHEMISTRY METHOD 10/18/2024 11:17 AM [facility] Glucose 175(H) 70 - 100 mg/dL LAB CHEMISTRY METHOD 10/18/2024 11:17 AM [facility] BUN 31(H) 5 - 25 mg/dL LAB CHEMISTRY METHOD 10/18/2024 11:17 AM [facility] Creatinine 1.65(H) 0.70 - 1.30 mg/dL LAB CHEMISTRY METHOD 10/18/2024 11:17 AM [facility] eGFR 45(L) >=60 mL/min/1. 73m2 LAB CHEMISTRY METHOD 10/18/2024 11:17 AM [facility] Comment:Calculation based on the Chronic Kidney Disease Epidemiology Collaboration (CKD-EPI) equation refit without adjustment for race. BUN/Creatinine Ratio 18.8 LAB CHEMISTRY METHOD 10/18/2024 11:17 AM [facility] Calcium 9.5 8.5 - 10.5 mg/dL LAB CHEMISTRY METHOD 10/18/2024 11:17 AM [facility] AST (SGOT) 16 10 - 42 unit/L LAB CHEMISTRY METHOD 10/18/2024 11:17 AM [facility] ALT (SGPT) 26 10 - 60 unit/L LAB CHEMISTRY METHOD 10/18/2024 11:17 AM [facility] Alkaline Phosphatase 57 42 - 121 unit/L LAB CHEMISTRY METHOD 10/18/2024 11:17 AM [facility] Total Protein 7.4 6.0 - 8.0 g/dL LAB CHEMISTRY METHOD 10/18/2024 11:17 AM [facility] Albumin 3.7 3.2 - 5.0 g/dL LAB CHEMISTRY METHOD 10/18/2024 11:17 AM [facility] Total Bilirubin 0.5 0.0 - 1.4 mg/dL LAB CHEMISTRY METHOD 10/18/2024 11:17 AM [facility] Blood Venous blood specimen / Unknown Venipuncture / Unknown 10/18/2024 8:20 AM EST 10/18/2024 10:40 AM EST us Diaz Wills FISH FARM MANAGER LAB BLOOD ORDERABLES Final Re sult [facility] [address] [place] [address], from Last 3 Months or Most Recently Relevant to Health Maintenance Insurance [facility] MEDICAID ADVANTAGE Care Teams Mail Messenger Contractor Relationship Specialty Start Date End Date Aly Herzog MD [address] [place] [phone] PCP - General Internal Medicine 10/29/20
--- OUTSIDE RECORDS SUMMARY | 2025-05-31 14:52 | XMS_ITS | Patient Health Record ---
Author Organization [facility] [address] Address [address] [place] [address] Care Team Providers Care Hatchery Attendant Name Role Phone CHINO HERBERT Unavailable [phone] DEBORAHMAJOR OROZCO Unavailable [phone] Allergies No Known Allergies Results Component Value Reference Range Notes PPC Hemoglobin A1C Reviewed date:02/16/2025 09:25:52 AM Interpretation:7.3 Performing Lab: Notes/Report: 7.3 [facility] Hemoglobin A1C Reviewed date:05/19/2025 09:06:27 AM Interpretation:6.7 Performing Lab: Notes/Report: 6.7 MICROALBUMIN CREATININE URIN E RATIO Reviewed date:10/18/2024 11:55:01 AM Interpretation: Performing Lab: Notes/Report: Creatinine, Urine 106.0 Microalb, Ur 9.4 0.0-29.0 mg/L Microalb/Creat Ratio 9 <30 mg/g creat HEMOGLOBIN A1C Reviewed date:10/19/2024 07:50:30 AM Interpretation: Performing Lab: Notes/Report: Hemoglobin A1C 7.8 <6.5 % Mean Bld Glu Estim. 177 URINALYSIS WITH REFLEX MICRO SCOPIC Reviewed date:10/18/2024 11:16:46 AM Interpretation: Performing Lab: Notes/Report: Specific [place] Urine 1.028 1.003-1.030 pH, Urine 5.0 5.0-8.0 pH Leukocytes, Urine Negative Negative Nitrite, Urine Negative Negative Protein, Urine Negative <=Trace mg/dL Glucose, Urine >=1000 Negative mg/dL Ketones, Urine Negative Negative mg/dL Urobilinogen, Urine 0.2 0.2-1.0 mg/dL Bilirubin, Urine Negative Negative Blood, Urine Negative Negative PROSTATE SPECIFIC ANTIGEN KIERRA BATES Reviewed date:10/18/2024 11:55:01 AM Interpretation: Performing Lab: Notes/Report: The Siemens Advia Locappyaur Chemiluminescent Immunoassay is used. Results obtained with [...] K/mcL Immature Granulocytes Absolute 0.03 0.00-0.03 K/mcL Reason For Referral No Information Medications Medication SIG (Take, Route, Frequency, Duration) Notes Start Date End Date Status Vitamin C 500 MG 1 tablet Orally Once a day Active Magnesium 250 MG 1 tablet with a meal Orally Once a day Active Cinnamon 500 MG as directed Orally t wice a day Active Pravastatin Sodium 40 MG Take 1 tablet b y mouth once daily; Duration: 90 Active Folic Acid 1 MG 1 tablet Orally Once a day Active FreeStyle Lite Test - as directed In Vitro 025 Active Hydrocortisone 1 % 1 application Medical Radiation Tech ally Once a day Active Sildenafil Citrate 100 MG TAKE ONE TABLE T BY MOUTH APPROXIMATELY 30 MINUTES BEFORE SEXUAL ACTIVITY.; Duration: 30 Active Farxiga 10 MG 1 tablet Orally Once a day; Duration: 90 days Active Fish Oil 1000 MG 1 capsule Orally Onc e a day Active Niacinamide 500 MG 1 capsule Orally twi ce a day Active Vitamin B12 1000 MCG 1 tablet Orally Onc e a day Active Fluorouracil 5 % 1 application Medical [employer]iation [employer] ally Twice a day Active Vitamin D 50 MCG (1999) 1 capsule Ora lly twice a week Active Flaxseed Oil 1400 MG as directed Orally Active Lisinopril 5 MG Take 1 tablet by howard th once daily; Duration: 90 days Active FLUoxetine HCl 20 MG 1 capsule Orally On ce a day Active Mounjaro 5 MG/0.5ML as directed Subcutaneous Active clonazePAM 0.5 MG 1 tablet Orally 3 ti mes a day Active Levothyroxine Sodium 75 MCG TAKE 1 TABLE T BY MOUTH ONCE DAILY IN THE MORNING ON AN EMPTY STOMACH; Duration: 90 Active Immunizations Vaccine Route Administration Date Status Comme nts RSV-IGIV IM Intramuscular 08/04/2023 Administered Social History Tobacco Use: Social History Observation Description Date Details (start date - stop date) Never Smoker NA - NA Tobacco Use/Smoking Question Answer Notes Are you a nonsmoker Problems Problem Type SNOMED Code ICD Code Onset Dates Problem Status W/U Status Risk Notes Problem Hypothyroidism (51747984) Other specified hypothyroidism (E03.8) Active confirmed Problem Vitamin D deficiency (43404558) Vitamin D deficiency, unspecified (E55.9) Active confirmed Problem Hyperlipidemia (73712801) Hyperlipidemia, unspecified (E78.5) Active confirmed Problem Essential hypertension (36886192) Essential (primary) hypertension (I10) Active confirmed Problem Hemorrhage of colon due to diverticulosis (946883519657592) Diverticulosis of intestine, part unspecified, without perforation or abscess with bleeding (K57.91) Active confirmed Problem Adult health examination (136846214) Encounter for general adult medical examination without abnormal findings (Z00.00) Active confirmed Problem Lipid screening (730946227) Encounter for screening for lipoid disorders (Z13.220) Active confirmed Problem Colon cancer screening (900851038) Colon cancer screening (Z12.11) Active confirmed Problem Acquired hypothyroidism (969318004) Acquired hypothyroidism (E03.9) Active confirmed Problem Depressive disorder (disorder) (17206974) Depression, unspecified depression type (F32.9) Active confirmed Problem Acute kidney injury (39372879) Acute kidney injury (N17.9) Active confirmed Problem Vitamin D deficiency (10738891) Vitamin D deficiency (E55.9) Active confirmed Problem Accelerated essential hypertension (47045823) Accelerated essential hypertension (I10) Active confirmed Problem Diabetes mellitus screening (545740737) Diabetes mellitus screening (Z13.1) Active confirmed Problem Type II diabetes mellitus without complication (506442510) Type 2 diabetes mellitus without complication, without long-term current use of insulin (E11.9) Active confirmed Problem Chronic kidney disease stage 3B (disorder) (611871649) Stage 3b chronic kidney disease (N18.32) Active confirmed Problem Screening for osteoporosis (417032247) Osteoporosis screening (Z13.820) Active confirmed Problem Endocrine/metabol ic screening (714732086) Encounter for screening for endocrine disorder (Z13.29) Active confirmed Problem Abnormal metabolic state due to diabetes mellitus (007251952) Abnormal metabolic state due to diabetes mellitus (E11.9) Active confirmed Problem Screening for malignant neoplasm of prostate (954081668) Encounter for prostate cancer screening (Z12.5) Active confirmed Vital Signs Heart Rate 64 /min 05/19/2025 Oximetry 99 % 05/19/2025 Blood pressure diastolic 70 mm Hg 05/19/2025 Height 70 in 05/19/2025 Blood pressure systolic 120 mm Hg 05/19/2025 Weight 190 lbs 05/19/2025 BMI 27.26 kg/m2 05/19/2025 Encounters Encounter Location Date Provider Diagnosis [facility] [address] [address] 06/20/2024 MAJOR SARABIA Essential (primary) hypertension I10 ; Type 2 diabetes mellitus without complication, without long-term current use of insulin E11.9 ; Acquired hypothyroidism E03.9 ; Depression, unspecified depression type F32.9 ; Stage 3b chronic kidney disease N18.32 and Hyperlipidemia, unspecified E78.5 [facility] [address] [address] 10/19/2024 MAJOR SARABIA Essential (primary) hypertension I10 ; Type 2 diabetes mellitus without complication, without long-term current use of insulin E11.9 ; Acquired hypothyroidism E03.9 ; Depression, unspecified depression type F32.9 ; Stage 3b chronic kidney disease N18.32 and Hyperlipidemia, unspecified E78.5 [facility] [address] [address] 02/16/2025 MAJOR SARABIA Annual physical exam Z00.00 ; Encounter for [...] abnormal findings Z01.30 [facility] [address] [address] 05/19/2025 MAJOR BORHOT Essential (primary) hypertension I10 ; Type 2 diabetes mellitus without complication, without long-term current use of insulin E11.9 ; Stage 3b chronic kidney disease N18.32 ; Acquired hypothyroidism E03.9 ; Depression, unspecified depression type F32.9 and Hyperlipidemia, unspecified E78.5 [facility] [address] 06/01/2024 MAJOR BORHOT Essential (primary) hypertension I10 [facility] [address] [place] [address] 03/08/2025 MAJOR BORHOT [facility] [address] 03/21/2025 MAJOR BORHOT Type 2 diabetes jaylin itus without complication, without long-term current use of insulin E11.9 [facility] [address] [address] 03/22/2025 MAJOR BORHOT Type 2 diabetes jaylin itus without complication, without long-term current use of insulin E11.9 [facility] [address] [address] 03/23/2025 MAJOR BORHOT Type 2 diabetes jaylin itus without complication, without long-term current use of insulin E11.[address] [facility] [address] [place] [address] 03/27/2025 MAJOR BORHOT Type 2 diabetes jaylin itus without complication, without long-term current use of insulin E11.[address] [facility] [address] [place] [address] 03/29/2025 MAJOR BORHOT Type 2 diabetes jaylin itus without complication, without long-term current use of insulin E11.9 [facility] [address] [facility] [address] [place] [address] 06/19/2024 CHINO HERBERT [facility] [address] [facility] [address] [place] [address] 03/23/2025 MAJOR SARABIA Type 2 diabetes jaylin itus without complication, without long-term current use of insulin E11.9 Assessments Encounter Date Diagnosis (ICD Code) Assessment Notes Treatment Notes Treatment Clinical Notes Section Notes 06/01/2024 Essential (primary) hypertension (ICD-10 - I10) 06/20/2024 Essential (primary) hypertension (ICD-10 - I10) Patient Presents for [facility] Acute Concerns/Problem List: 06/20/2024 Chronic conditions stable as below _update labs Hypertension Stable on ROMEL CKD IIIB, Creatinine 1.4-1.6, as high as 2.1, As well as metformin, renal ultrasound stable continue to trend. He is seeing a crook operator who keeps track of his kidneys on [...] high risk for cardiovascular events including stroke, [place] As well as complications from infections, therefore immunizations are important The best way to monitor kidney function is through blood and urine test You should have these test done periodically If it is best if you complete the test a week or 2 before your visit with your primary care or crook operator So that the most recent data can [...] software and direct typing Please excuse inadvertent event av operator or typing errors, or uncorrected word substitutions Although every attempt has been made by the provider to proofread this document, occasional misspellings and typographical errors may still be present Due to the previous pandemic, and the use of personal protective equipment (PPE) This may decrease voice recognition accuracy Inadvertent event av operator errors may occur 10/19/2024 Essential (primary) hypertension (ICD-10 - I10) Acute Concerns/Problem List: 10/19/2024 Chronic conditions stable as below Continue blood pressure management Hypertension Stable on ROMEL, Lisinopril monotherapy 5 mg CKD IIIB, Creatinine 1.4-1.6, as high as 2.1, continue to trend. He is seeing a crook operator who keeps track of his kidneys on [...] high risk for cardiovascular events including stroke, [place] As well as complications from infections, therefore immunizations are important The best way to monitor kidney function is through blood and urine test You should have these test done periodically If it is best if you complete the test a week or 2 before your visit with your primary care or crook operator So that the most recent data can [...] software and direct typing Please excuse inadvertent event av operator or typing errors, or uncorrected word substitutions Although every attempt has been made by the provider to proofread this document, occasional misspellings and typographical errors may still be present Due to the previous pandemic, and the use of personal protective equipment (PPE) This may decrease voice recognition accuracy Inadvertent event av operator errors may occur 02/16/2025 Encounter for screening [...] high risk for cardiovascular events including stroke, IA As well as complications from infections, therefore immunizations are important The best way to monitor kidney function is through blood and urine test You should have these test done periodically If it is best if you complete the test a week or 2 before your visit with your primary care or crook operator So that the most recent data can [...] software and direct typing Please excuse inadvertent event av operator or typing errors, or uncorrected word substitutions Although every attempt has been made by the provider to proofread this document, occasional misspellings and typographical errors may still be present Due to the previous pandemic, and the use of personal protective equipment (PPE) This may decrease voice recognition accuracy Inadvertent event av operator errors may occur 02/16/2025 Annual physical exam [...] high risk for cardiovascular events including stroke, IA As well as complications from infections, therefore immunizations are important The best way to monitor kidney function is through blood and urine test You should have these test done periodically If it is best if you complete the test a week or 2 before your visit with your primary care or crook operator So that the most recent data can [...] software and direct typing Please excuse inadvertent event av operator or typing errors, or uncorrected word substitutions Although every attempt has been made by the provider to proofread this document, occasional misspellings and typographical errors may still be present Due to the previous pandemic, and the use of personal protective equipment (PPE) This may decrease voice recognition accuracy Inadvertent event av operator errors may occur 03/21/2025 Type 2 diabetes [...] current use of insulin (ICD-10 - E11.9) 05/19/2025 Essential (primary) hypertension (ICD-10 - I10) Acute Concerns/Problem List: 05/19/2025 Excellent glycemic control, A1c today 6.7 Please update your diabetic eye exam Otherwise chronic conditions are stable at this time Of note, some information is being carried forward from prior records for informational purposes only and is being cited so that efficiency, safety and quality of the patient's care is not compromised This note was prepared using voice recognition software and direct typing Please excuse inadvertent event av operator or typing errors, or uncorrected word substitutions Although every attempt has been made by the provider to proofread this document, occasional misspellings and typographical errors may still be present Due to the previous pandemic, and the use of personal protective equipment (PPE) This may decrease voice recognition accuracy Inadvertent event av operator errors may occur 05/19/2025 Type 2 diabetes mellitus without complication, without long-term current use of insulin (ICD-10 - E11.9) Acute Concerns/Problem List: 05/19/2025 Excellent glycemic control, A1c today 6.7 Please update your diabetic eye exam Otherwise chronic conditions are stable at this time Of note, some information is being carried forward from prior records for informational purposes only and is being cited so that efficiency, safety and quality of the patient's care is not compromised This note was prepared using voice recognition software and direct typing Please excuse inadvertent event av operator or typing errors, or uncorrected word substitutions Although every attempt has been made by the provider to proofread this document, occasional misspellings and typographical errors may still be present Due to the previous pandemic, and the use of personal protective equipment (PPE) This may decrease voice recognition accuracy Inadvertent event av operator errors may occur 05/19/2025 Stage 3b chronic kidney disease (ICD-10 - N18.32) Acute Concerns/Problem List: 05/19/2025 Excellent glycemic control, A1c today 6.7 Please update your diabetic eye exam Otherwise chronic conditions are stable at this time Of note, some information is being carried forward from prior records for informational purposes only and is being cited so that efficiency, safety and quality of the patient's care is not compromised This note was prepared using voice recognition software and direct typing Please excuse inadvertent event av operator or typing errors, or uncorrected word substitutions Although every attempt has been made by the provider to proofread this document, occasional misspellings and typographical errors may still be present Due to the previous pandemic, and the use of personal protective equipment (PPE) This may decrease voice recognition accuracy Inadvertent event av operator errors may occur 02/16/2025 Encounter for screening for other disorder [...] high risk for cardiovascular events including stroke, [place] As well as complications from infections, therefore immunizations are important The best way to monitor kidney function is through blood and urine test You should have these test done periodically If it is best if you complete the test a week or 2 before your visit with your primary care or crook operator So that the most recent data can [...] software and direct typing Please excuse inadvertent event av operator or typing errors, or uncorrected word substitutions Although every attempt has been made by the provider to proofread this document, occasional misspellings and typographical errors may still be present Due to the previous pandemic, and the use of personal protective equipment (PPE) This may decrease voice recognition accuracy Inadvertent event av operator errors may occur 10/19/2024 Type 2 diabetes mellitus without complication, without long-term current use of insulin (ICD-10 - E11.9) Acute Concerns/Problem List: 10/19/2024 Chronic conditions stable as below Continue blood pressure management Hypertension Stable on ROMEL, Lisinopril monotherapy 5 mg CKD IIIB, Creatinine 1.4-1.6, as high as 2.1, continue to trend. He is seeing a crook operator who keeps track of his kidneys on [...] high risk for cardiovascular events including stroke, IA As well as complications from infections, therefore immunizations are important The best way to monitor kidney function is through blood and urine test You should have these test done periodically If it is best if you complete the test a week or 2 before your visit with your primary care or crook operator So that the most recent data can [...] software and direct typing Please excuse inadvertent event av operator or typing errors, or uncorrected word substitutions Although every attempt has been made by the provider to proofread this document, occasional misspellings and typographical errors may still be present Due to the previous pandemic, and the use of personal protective equipment (PPE) This may decrease voice recognition accuracy Inadvertent event av operator errors may occur 06/20/2024 Type 2 diabetes mellitus without complication, without long-term current use of insulin (ICD-10 - E11.9) Patient Presents for [facility] Acute Concerns/Problem List: 06/20/2024 Chronic conditions stable as below _update labs Hypertension Stable on ROMEL CKD IIIB, Creatinine 1.4-1.6, as high as 2.1, As well as metformin, renal ultrasound stable continue to trend. He is seeing a crook operator who keeps track of his kidneys on [...] high risk for cardiovascular events including stroke, [place] As well as complications from infections, therefore immunizations are important The best way to monitor kidney function is through blood and urine test You should have these test done periodically If it is best if you complete the test a week or 2 before your visit with your primary care or crook operator So that the most recent data can [...] software and direct typing Please excuse inadvertent event av operator or typing errors, or uncorrected word substitutions Although every attempt has been made by the provider to proofread this document, occasional misspellings and typographical errors may still be present Due to the previous pandemic, and the use of personal protective equipment (PPE) This may decrease voice recognition accuracy Inadvertent event av operator errors may occur 10/19/2024 Acquired hypothyroidism (ICD-10 - E03.9) Acute Concerns/Problem List: 10/19/2024 Chronic conditions stable as below Continue blood pressure management Hypertension Stable on ROMEL, Lisinopril monotherapy 5 mg CKD IIIB, Creatinine 1.4-1.6, as high as 2.1, continue to trend. He is seeing a crook operator who keeps track of his kidneys on [...] high risk for cardiovascular events including stroke, [place] As well as complications from infections, therefore immunizations are important The best way to monitor kidney function is through blood and urine test You should have these test done periodically If it is best if you complete the test a week or 2 before your visit with your primary care or crook operator So that the most recent data can [...] software and direct typing Please excuse inadvertent event av operator or typing errors, or uncorrected word substitutions Although every attempt has been made by the provider to proofread this document, occasional misspellings and typographical errors may still be present Due to the previous pandemic, and the use of personal protective equipment (PPE) This may decrease voice recognition accuracy Inadvertent event av operator errors may occur 06/20/2024 Acquired hypothyroidism (ICD-10 - E03.9) Patient Presents for [facility] Acute Concerns/Problem List: 06/20/2024 Chronic conditions stable as below _update labs Hypertension Stable on ROMEL CKD IIIB, Creatinine 1.4-1.6, as high as 2.1, As well as metformin, renal ultrasound stable continue to trend. He is seeing a crook operator who keeps track of his kidneys on [...] high risk for cardiovascular events including stroke, IA As well as complications from infections, therefore immunizations are important The best way to monitor kidney function is through blood and urine test You should have these test done periodically If it is best if you complete the test a week or 2 before your visit with your primary care or crook operator So that the most recent data can [...] software and direct typing Please excuse inadvertent event av operator or typing errors, or uncorrected word substitutions Although every attempt has been made by the provider to proofread this document, occasional misspellings and typographical errors may still be present Due to the previous pandemic, and the use of personal protective equipment (PPE) This may decrease voice recognition accuracy Inadvertent event av operator errors may occur 05/19/2025 Acquired hypothyroidism (ICD-10 - E03.9) Acute Concerns/Problem List: 05/19/2025 Excellent glycemic control, A1c today 6.7 Please update your diabetic eye exam Otherwise chronic conditions are stable at this time Of note, some information is being carried forward from prior records for informational purposes only and is being cited so that efficiency, safety and quality of the patient's care is not compromised This note was prepared using voice recognition software and direct typing Please excuse inadvertent event av operator or typing errors, or uncorrected word substitutions Although every attempt has been made by the provider to proofread this document, occasional misspellings and typographical errors may still be present Due to the previous pandemic, and the use of personal protective equipment (PPE) This may decrease voice recognition accuracy Inadvertent event av operator errors may occur 02/16/2025 Advanced directives, counseling/discuss [...] high risk for cardiovascular events including stroke, [place] As well as complications from infections, therefore immunizations are important The best way to monitor kidney function is through blood and urine test You should have these test done periodically If it is best if you complete the test a week or 2 before your visit with your primary care or crook operator So that the most recent data can [...] software and direct typing Please excuse inadvertent event av operator or typing errors, or uncorrected word substitutions Although every attempt has been made by the provider to proofread this document, occasional misspellings and typographical errors may still be present Due to the previous pandemic, and the use of personal protective equipment (PPE) This may decrease voice recognition accuracy Inadvertent event av operator errors may occur 05/19/2025 Depression, unspecified depression type (ICD-10 - F32.9) Acute Concerns/Problem List: 05/19/2025 Excellent glycemic control, A1c today 6.7 Please update your diabetic eye exam Otherwise chronic conditions are stable at this time Of note, some information is being carried forward from prior records for informational purposes only and is being cited so that efficiency, safety and quality of the patient's care is not compromised This note was prepared using voice recognition software and direct typing Please excuse inadvertent event av operator or typing errors, or uncorrected word substitutions Although every attempt has been made by the provider to proofread this document, occasional misspellings and typographical errors may still be present Due to the previous pandemic, and the use of personal protective equipment (PPE) This may decrease voice recognition accuracy Inadvertent event av operator errors may occur 02/16/2025 Essential (primary) hypertension [...] high risk for cardiovascular events including stroke, IA As well as complications from infections, therefore immunizations are important The best way to monitor kidney function is through blood and urine test You should have these test done periodically If it is best if you complete the test a week or 2 before your visit with your primary care or crook operator So that the most recent data can [...] software and direct typing Please excuse inadvertent event av operator or typing errors, or uncorrected word substitutions Although every attempt has been made by the provider to proofread this document, occasional misspellings and typographical errors may still be present Due to the previous pandemic, and the use of personal protective equipment (PPE) This may decrease voice recognition accuracy Inadvertent event av operator errors may occur 06/20/2024 Depression, unspecified depression type (ICD-10 - F32.9) Patient Presents for [facility] Acute Concerns/Problem List: 06/20/2024 Chronic conditions stable as below _update labs Hypertension Stable on ROMEL CKD IIIB, Creatinine 1.4-1.6, as high as 2.1, As well as metformin, renal ultrasound stable continue to trend. He is seeing a crook operator who keeps track of his kidneys on [...] high risk for cardiovascular events including stroke, IA As well as complications from infections, therefore immunizations are important The best way to monitor kidney function is through blood and urine test You should have these test done periodically If it is best if you complete the test a week or 2 before your visit with your primary care or crook operator So that the most recent data can [...] software and direct typing Please excuse inadvertent event av operator or typing errors, or uncorrected word substitutions Although every attempt has been made by the provider to proofread this document, occasional misspellings and typographical errors may still be present Due to the previous pandemic, and the use of personal protective equipment (PPE) This may decrease voice recognition accuracy Inadvertent event av operator errors may occur 10/19/2024 Depression, unspecified depression type (ICD-10 - F32.9) Acute Concerns/Problem List: 10/19/2024 Chronic conditions stable as below Continue blood pressure management Hypertension Stable on ROMEL, Lisinopril monotherapy 5 mg CKD IIIB, Creatinine 1.4-1.6, as high as 2.1, continue to trend. He is seeing a crook operator who keeps track of his kidneys on [...] high risk for cardiovascular events including stroke, IA As well as complications from infections, therefore immunizations are important The best way to monitor kidney function is through blood and urine test You should have these test done periodically If it is best if you complete the test a week or 2 before your visit with your primary care or crook operator So that the most recent data can [...] software and direct typing Please excuse inadvertent event av operator or typing errors, or uncorrected word substitutions Although every attempt has been made by the provider to proofread this document, occasional misspellings and typographical errors may still be present Due to the previous pandemic, and the use of personal protective equipment (PPE) This may decrease voice recognition accuracy Inadvertent event av operator errors may occur 06/20/2024 Stage 3b chronic kidney disease (ICD-10 - N18.32) Patient Presents for [facility] Acute Concerns/Problem List: 06/20/2024 Chronic conditions stable as below _update labs Hypertension Stable on ROMEL CKD IIIB, Creatinine 1.4-1.6, as high as 2.1, As well as metformin, renal ultrasound stable continue to trend. He is seeing a crook operator who keeps track of his kidneys on [...] high risk for cardiovascular events including stroke, IA As well as complications from infections, therefore immunizations are important The best way to monitor kidney function is through blood and urine test You should have these test done periodically If it is best if you complete the test a week or 2 before your visit with your primary care or crook operator So that the most recent data can [...] software and direct typing Please excuse inadvertent event av operator or typing errors, or uncorrected word substitutions Although every attempt has been made by the provider to proofread this document, occasional misspellings and typographical errors may still be present Due to the previous pandemic, and the use of personal protective equipment (PPE) This may decrease voice recognition accuracy Inadvertent event av operator errors may occur 10/19/2024 Stage 3b chronic kidney disease (ICD-10 - N18.32) Acute Concerns/Problem List: 10/19/2024 Chronic conditions stable as below Continue blood pressure management Hypertension Stable on ROMEL, Lisinopril monotherapy 5 mg CKD IIIB, Creatinine 1.4-1.6, as high as 2.1, continue to trend. He is seeing a crook operator who keeps track of his kidneys on [...] high risk for cardiovascular events including stroke, IA As well as complications from infections, therefore immunizations are important The best way to monitor kidney function is through blood and urine test You should have these test done periodically If it is best if you complete the test a week or 2 before your visit with your primary care or crook operator So that the most recent data can [...] software and direct typing Please excuse inadvertent event av operator or typing errors, or uncorrected word substitutions Although every attempt has been made by the provider to proofread this document, occasional misspellings and typographical errors may still be present Due to the previous pandemic, and the use of personal protective equipment (PPE) This may decrease voice recognition accuracy Inadvertent event av operator errors may occur 02/16/2025 Type 2 diabetes [...] high risk for cardiovascular events including stroke, IA As well as complications from infections, therefore immunizations are important The best way to monitor kidney function is through blood and urine test You should have these test done periodically If it is best if you complete the test a week or 2 before your visit with your primary care or crook operator So that the most recent data can [...] software and direct typing Please excuse inadvertent event av operator or typing errors, or uncorrected word substitutions Although every attempt has been made by the provider to proofread this document, occasional misspellings and typographical errors may still be present Due to the previous pandemic, and the use of personal protective equipment (PPE) This may decrease voice recognition accuracy Inadvertent event av operator errors may occur 05/19/2025 Hyperlipidemia, unspecified (ICD-10 - E78.5) Acute Concerns/Problem List: 05/19/2025 Excellent glycemic control, A1c today 6.7 Please update your diabetic eye exam Otherwise chronic conditions are stable at this time Of note, some information is being carried forward from prior records for informational purposes only and is being cited so that efficiency, safety and quality of the patient's care is not compromised This note was prepared using voice recognition software and direct typing Please excuse inadvertent event av operator or typing errors, or uncorrected word substitutions Although every attempt has been made by the provider to proofread this document, occasional misspellings and typographical errors may still be present Due to the previous pandemic, and the use of personal protective equipment (PPE) This may decrease voice recognition accuracy Inadvertent event av operator errors may occur 02/16/2025 Acquired hypothyroidism (ICD-10 [...] high risk for cardiovascular events including stroke, IA As well as complications from infections, therefore immunizations are important The best way to monitor kidney function is through blood and urine test You should have these test done periodically If it is best if you complete the test a week or 2 before your visit with your primary care or crook operator So that the most recent data can [...] software and direct typing Please excuse inadvertent event av operator or typing errors, or uncorrected word substitutions Although every attempt has been made by the provider to proofread this document, occasional misspellings and typographical errors may still be present Due to the previous pandemic, and the use of personal protective equipment (PPE) This may decrease voice recognition accuracy Inadvertent event av operator errors may occur 10/19/2024 Hyperlipidemia, unspecified (ICD-10 - E78.5) Acute Concerns/Problem List: 10/19/2024 Chronic conditions stable as below Continue blood pressure management Hypertension Stable on ROMEL, Lisinopril monotherapy 5 mg CKD IIIB, Creatinine 1.4-1.6, as high as 2.1, continue to trend. He is seeing a crook operator who keeps track of his kidneys on [...] high risk for cardiovascular events including stroke, IA As well as complications from infections, therefore immunizations are important The best way to monitor kidney function is through blood and urine test You should have these test done periodically If it is best if you complete the test a week or 2 before your visit with your primary care or crook operator So that the most recent data can [...] software and direct typing Please excuse inadvertent event av operator or typing errors, or uncorrected word substitutions Although every attempt has been made by the provider to proofread this document, occasional misspellings and typographical errors may still be present Due to the previous pandemic, and the use of personal protective equipment (PPE) This may decrease voice recognition accuracy Inadvertent event av operator errors may occur 06/20/2024 Hyperlipidemia, unspecified (ICD-10 - E78.5) Patient Presents for [facility] Acute Concerns/Problem List: 06/20/2024 Chronic conditions stable as below _update labs Hypertension Stable on ROMEL CKD IIIB, Creatinine 1.4-1.6, as high as 2.1, As well as metformin, renal ultrasound stable continue to trend. He is seeing a crook operator who keeps track of his kidneys on [...] high risk for cardiovascular events including stroke, IA As well as complications from infections, therefore immunizations are important The best way to monitor kidney function is through blood and urine test You should have these test done periodically If it is best if you complete the test a week or 2 before your visit with your primary care or crook operator So that the most recent data can [...] software and direct typing Please excuse inadvertent event av operator or typing errors, or uncorrected word substitutions Although every attempt has been made by the provider to proofread this document, occasional misspellings and typographical errors may still be present Due to the previous pandemic, and the use of personal protective equipment (PPE) This may decrease voice recognition accuracy Inadvertent event av operator errors may occur 02/16/2025 Depression, unspecified depression [...] high risk for cardiovascular events including stroke, IA As well as complications from infections, therefore immunizations are important The best way to monitor kidney function is through blood and urine test You should have these test done periodically If it is best if you complete the test a week or 2 before your visit with your primary care or crook operator So that the most recent data can [...] software and direct typing Please excuse inadvertent event av operator or typing errors, or uncorrected word substitutions Although every attempt has been made by the provider to proofread this document, occasional misspellings and typographical errors may still be present Due to the previous pandemic, and the use of personal protective equipment (PPE) This may decrease voice recognition accuracy Inadvertent event av operator errors may occur 02/16/2025 Stage 3b chronic [...] high risk for cardiovascular events including stroke, IA As well as complications from infections, therefore immunizations are important The best way to monitor kidney function is through blood and urine test You should have these test done periodically If it is best if you complete the test a week or 2 before your visit with your primary care or crook operator So that the most recent data can [...] software and direct typing Please excuse inadvertent event av operator or typing errors, or uncorrected word substitutions Although every attempt has been made by the provider to proofread this document, occasional misspellings and typographical errors may still be present Due to the previous pandemic, and the use of personal protective equipment (PPE) This may decrease voice recognition accuracy Inadvertent event av operator errors may occur 02/16/2025 Hyperlipidemia, unspecified (ICD-10 [...] high risk for cardiovascular events including stroke, IA As well as complications from infections, therefore immunizations are important The best way to monitor kidney function is through blood and urine test You should have these test done periodically If it is best if you complete the test a week or 2 before your visit with your primary care or crook operator So that the most recent data can [...] software and direct typing Please excuse inadvertent event av operator or typing errors, or uncorrected word substitutions Although every attempt has been made by the provider to proofread this document, occasional misspellings and typographical errors may still be present Due to the previous pandemic, and the use of personal protective equipment (PPE) This may decrease voice recognition accuracy Inadvertent event av operator errors may occur 02/16/2025 Encounter for examination [...] high risk for cardiovascular events including stroke, IA As well as complications from infections, therefore immunizations are important The best way to monitor kidney function is through blood and urine test You should have these test done periodically If it is best if you complete the test a week or 2 before your visit with your primary care or crook operator So that the most recent data can [...] software and direct typing Please excuse inadvertent event av operator or typing errors, or uncorrected word substitutions Although every attempt has been made by the provider to proofread this document, occasional misspellings and typographical errors may still be present Due to the previous pandemic, and the use of personal protective equipment (PPE) This may decrease voice recognition accuracy Inadvertent event av operator errors may occur Plan Of Treatment Pending Test Test Name Order Date Hemoglobin A1c 12/13/2020 Basic Metabolic Panel (8) 12/13/2020 Bone Density 12/25/2022 25OH VITAMIN D 09/06/2021 25OH VITAMIN D 12/13/2020 25OH VITAMIN D 08/04/2023 BASIC METABOLIC PANEL 11/17/2022 CBC (COMPLETE BLOOD COUNT) 06/11/2020 CBC (COMPLETE BLOOD COUNT) 11/08/2020 CBC (COMPLETE BLOOD COUNT) 09/06/2021 CBC (COMPLETE BLOOD COUNT) 12/25/2022 CBC (COMPLETE BLOOD COUNT) 08/04/2023 COMPREHENSIVE METABOLIC PANEL 08/04/2023 COMPREHENSIVE METABOLIC PANEL 12/25/2022 COMPREHENSIVE METABOLIC PANEL 11/08/2020 COMPREHENSIVE METABOLIC PANEL 06/11/2020 COMPREHENSIVE METABOLIC PANEL 09/06/2021 HEMOGLOBIN A1C 09/06/2021 HEMOGLOBIN A1C 06/11/2020 HEMOGLOBIN A1C 11/08/2020 HEMOGLOBIN A1C 12/25/2022 HEMOGLOBIN A1C 08/04/2023 LIPID PANEL 08/04/2023 LIPID PANEL 12/25/2022 LIPID PANEL 06/11/2020 LIPID PANEL 09/06/2021 MICROALBUMIN, URINE 06/06/2021 PSA, SCREEN 09/06/2021 PSA, SCREEN 08/04/2023 PSA, SCREEN 06/20/2024 TSH 08/04/2023 TSH 11/08/2020 TSH WITH REFLEX TO FT4 09/06/2021 URINALYSIS W/REFLEX CULTURE 08/04/2023 URINALYSIS, COMPLETE 09/06/2021 URINALYSIS, COMPLETE 06/11/2020 MICROALB/CREAT RATIO, RANDOM 06/20/2024 LIPID PANEL, STANDARD [...] 12/19/2022 Next Appt Details Provider Name:MAJOR SARABIA, 08/23/2025 09:00:00 AM, [address] [facility], [facility] [address], [place], [address], Insurance Providers Payer Name Payer Address Payer Phone Subscriber Number Group Number Insured Name Patient Relationship to Insured Coverage Start Date Coverage End Date [facility] [address] [place] [address] [id number] LAMBERTO MELENDREZ Self - patient is the insured Medical (General) History Medical History History ICD Code hypertension hyperlipidemia diabetes mellitus anxiety depression
== END 2025-05-31 11:43 | disposition home or self-care (01) ==
LOC: HO.HMGAL 11:43
PROVIDERS: PCP Internal Medicine; Visit Provider Registered Nurse Emergency
DX: J30.89 Other allergic rhinitis (principal)
CPT/HCPCS: 95117; 95165

== ENCOUNTER 2025-06-12 11:44 | Outpatient (AMB) | payer MEDICARE, SELFPAY ==
--- OUTSIDE RECORDS SUMMARY | 2023-12-29 04:30 | XMS_ITS ---
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 Name Role Phone CHINO HERBERT Unavailable [phone] ONELIA SARABIAEN Unavailable [phone] Medications Medication SIG (Take, Route, Frequency, Duration) Notes Start Date End Date Status Lisinopril 10 MG Take 1 tablet by howard th once daily; Duration: 90 Active metFORMIN HCl 500 MG TAKE 1 TABLET BY MO UTH ONCE DAILY WITH A MEAL; Duration: 90 Active Zithromax Z-Anthony 250 MG as directed Orall y daily; Duration: 5 days 11/12/2023 Not-Taking Farxiga 10 MG 1 tablet Orally Once a day; Duration: 90 days Active Pravastatin Sodium 40 MG 1 tablet Orally Once a day; Duration: 90 days Active Propranolol HCl 20 MG Take 1 tablet by m outh once daily; Duration: 90 Active Levothyroxine Sodium 75 MCG TAKE 1 TABLET BY MOUTH ONCE DAILY IN THE MORNING ON AN EMPTY STOMACH; Duration: 90 Active Vitamin D 50 MCG (1999) 1 capsule Ora lly twice a week Active Farxiga 10 MG 1 tablet Orally Once a day; Duration: 90 days Active Vitamin B12 1000 MCG 1 tablet Orally Onc e a day Active Fish Oil 1000 MG 1 capsule Orally Onc e a day Active FLUoxetine HCl 60 MG 1 tablet 80 mg Oral ly Once a day Active clonazePAM 0.5 MG 1 tablet Orally tid Active Vitamin C 500 MG 1 tablet Orally Once a day Active Amoxicillin 250 MG 2 capsules Orally Three times a day Active Ibuprofen 400 MG 1 tablet with food o r milk as needed Orally Three times a day Active Encounters Encounter Location Date Provider Diagnosis [facility] [address] [address] 12/29/2023 MAJOR SARABIA Essential (primary) hypertension I10 ; Encounter for general adult medical examination without abnormal findings Z00.00 ; Type 2 diabetes mellitus without complication, without long-term current use of insulin E11.9 ; Acquired hypothyroidism E03.9 ; Depression, unspecified depression type F32.9 ; Stage 3b chronic kidney disease N18.32 ; Hyperlipidemia, unspecified E78.5 ; Encounter for screening for depression Z13.31 and Encounter for screening for other disorder Z13.89 Assessments Encounter Date Diagnosis (ICD Code) Assessment Notes Treatment Notes Treatment Clinical Notes Section Notes 12/29/2023 Essential (primary) hypertension (ICD-10 - I10) Patient Presents for [facility] Acute Concerns/Problem List: 12/28/2023 Hypertension Stable on ROMEL CKD IIIB, Creatinine 1.4-1.6, as high as 2.1, CKD suspect multifactorial including ROMEL inhibitor use, underlying CKD As well as metformin, renal ultrasound stable continue to trend. He is seeing a pharmaceutical sales representative who keeps track of his kidneys, he has an appointment next week GFR is 42 typically under 30 we would discontinue metformin and this is the threshold for SGLT 2 use DM, Stable, A1c 6.5 which is improved, well managed continue metformin at low dosing, no signs of acidosis on labs Surveillance Monitor prescribed him jardiance and metformin combo but insurance does not cover We will cont him on farxiga separately from metform , Will watch his GFR closely chemically euthyroid For Depression, continue SSRI and clonazepam We discussed in detail the management of diabetes mellitus. Emphasis was paid on nutrition, low carbohydrate diet with good fat and protein sources, fruits and vegetables was discussed. Exercise was recommended. Incorporation of daily walking into a routine was discussed. A pedometer goal of 10,000 steps was discussed. Management of diabetes mellitus along with medications to treat the condition was discussed. Importance of diabetic foot exam, diabetic eye exam, urine microalbumin analysis annually was discussed. Side effects of diabetic medications were discussed again. Patient agrees to take medications as prescribed and comply with lifestyle modifications. Chronic kidney disease is usually silent Typical causes include diabetes and high blood pressure as well as dehydration If you have these issues, please make sure that there tightly controlled Ask your PCP what your blood pressure and hemoglobin A1c target should be in no your numbers Blood pressure recordings and sugar recordings should also be discussed Chronic kidney disease are at high risk for cardiovascular events including stroke, PR As well as complications from infections, therefore immunizations are important The best way to monitor kidney function is through blood and urine test You should have these test done periodically If it is best if you complete the test a week or 2 before your visit with your primary care or pharmaceutical sales representative So that the most recent data can be discussed at your visit You should keep accurate medication lists The use of nonsteroidal anti-inflammatory drugs (NSAIDS) should be avoided and cautioned The best diet for people with hypertension and chronic kidney disease include balanced Mediterranean style diet, or DASH Which limit sodium intake below 2000 mg a day, limiting carbohydrate intake under 250 g a day and avoiding simple sugars and sweets Limit consumption of alcohol Caffeine in moderation such as 1-2 cups of regular coffee a day is okay Patient seen for MEDICARE WELLNESS VISIT and examined. Comprehensive discussion was done on the following. 1. Nutrition: It is important to follow a healthy diet based on lots of vegetables and legumes and good fat. Avoid processed food and processed carbohydrates. Learn to prepare your own meals. Learn to read labels and avoid high fructose corn syrup, processed chemicals added to increase shelf life and preprepared meals. Avoid fast foods. Learn to eat slowly and plan meals for a week. Try to count calories and be mindful off daily calorie intake. Get into the habit of keeping an eye on your weight by using an appropriate scale. Learn to log exercise and discussed fitness Apps like [employer] which can help keep log off calories taken versus calories burned. Local food should be preferred. Discussed Dirty Dozen Versus Clean Fifteen. Discussed healthy supplements like fish oil, Tumeric, Curcumin, Melatonin, Resveratrol, Probiotics, Vitamin-D, Alpha-Lipoic acid, Vitamin-D and coconut oil. 2. It is important to exercise regularly. Is a good habit to walk at least 30-45 minutes a day. Gentle weightlifting with standard precautions to protect the back. Finding activity like cycling or hiking and get into the habit of engaging in it. Stretching before and after the exercises important. It is also important to contact me if there are any problems like shortness of breath, chest pain, back pain and joint or muscle pain associated with the exercise. 3. Discussed age appropriate gender specific screening guidelines. Colonoscopy needs to start at age 45 with stool for occult blood as appropriate. There is a new test that can test for genetic abnormalities in the stool sample. This would not replace a colonoscopy but could be used as a screening tool for patients who do not want a colonoscopy. We discussed the importance of early detection of colon cancer. 4. Discussed current gender specific guidelines with respect to breast examination, mammogram and pap smear for early detection of breast and cervical cancer. Patient advised to follow up with these appointments. 5. Discussed safe driving and no use of smart phone while driving 6. Age-appropriate immunizations were discussed. A tetanus booster is needed every 10 years. Flu vaccine is recommended every year just before the start of the flu season. Shingles vaccine is recommended after age 50 but not all insurances cover it. Pneumonia vaccine is given after age 65 unless there are certain comorbidities for which it is started earlier. Newly approved RSV vaccine was also discussed COVID booster discussed 7. Diagnostic labs were discussed. These could include CBC CMP and lipids with fasting blood glucose and insulin levels. Vitamin D and hemoglobin A1c testing might be appropriate. 8. Patient and I had a detailed discussion on healthcare proxy and will follow. . I gave form for that as well as [place] order for life sustaining treatment. I screen for depression and she seems to be okay. I counseled on elimination of refined carbohydrates and processed food 9. Patient will be tested for dementia by neuropsychologica l testing if warranted and deemed appropriate by provider Of note, some information is being carried forward from prior records for informational purposes only and is being cited so that efficiency, safety and quality of the patient's care is not compromised This note was prepared using voice recognition software and direct typing Please excuse inadvertent warper fixer or typing errors, or uncorrected word substitutions Although every attempt has been made by the provider to proofread this document, occasional misspellings and typographical errors may still be present Due to the previous pandemic, and the use of personal protective equipment (PPE) This may decrease voice recognition accuracy Inadvertent warper fixer errors may occur 12/29/2023 Encounter for general adult medical examination without abnormal findings (ICD-10 - Z00.00) Patient Presents for [facility] Acute Concerns/Problem List: 12/28/2023 Hypertension Stable on ROMEL CKD IIIB, Creatinine 1.4-1.6, as high as 2.1, CKD suspect multifactorial including ROMEL inhibitor use, underlying CKD As well as metformin, renal ultrasound stable continue to trend. He is seeing a pharmaceutical sales representative who keeps track of his kidneys, he has an appointment next week GFR is 42 typically under 30 we would discontinue metformin and this is the threshold for SGLT 2 use DM, Stable, A1c 6.5 which is improved, well managed continue metformin at low dosing, no signs of acidosis on labs Surveillance Monitor prescribed him jardiance and metformin combo but insurance does not cover We will cont him on farxiga separately from metform , Will watch his GFR closely chemically euthyroid For Depression, continue SSRI and clonazepam We discussed in detail the management of diabetes mellitus. Emphasis was paid on nutrition, low carbohydrate diet with good fat and protein sources, fruits and vegetables was discussed. Exercise was recommended. Incorporation of daily walking into a routine was discussed. A pedometer goal of 10,000 steps was discussed. Management of diabetes mellitus along with medications to treat the condition was discussed. Importance of diabetic foot exam, diabetic eye exam, urine microalbumin analysis annually was discussed. Side effects of diabetic medications were discussed again. Patient agrees to take medications as prescribed and comply with lifestyle modifications. Chronic kidney disease is usually silent Typical causes include diabetes and high blood pressure as well as dehydration If you have these issues, please make sure that there tightly controlled Ask your PCP what your blood pressure and hemoglobin A1c target should be in no your numbers Blood pressure recordings and sugar recordings should also be discussed Chronic kidney disease are at high risk for cardiovascular events including stroke, PR As well as complications from infections, therefore immunizations are important The best way to monitor kidney function is through blood and urine test You should have these test done periodically If it is best if you complete the test a week or 2 before your visit with your primary care or pharmaceutical sales representative So that the most recent data can be discussed at your visit You should keep accurate medication lists The use of nonsteroidal anti-inflammatory drugs (NSAIDS) should be avoided and cautioned The best diet for people with hypertension and chronic kidney disease include balanced Mediterranean style diet, or DASH Which limit sodium intake below 2000 mg a day, limiting carbohydrate intake under 250 g a day and avoiding simple sugars and sweets Limit consumption of alcohol Caffeine in moderation such as 1-2 cups of regular coffee a day is okay Patient seen for MEDICARE WELLNESS VISIT and examined. Comprehensive discussion was done on the following. 1. Nutrition: It is important to follow a healthy diet based on lots of vegetables and legumes and good fat. Avoid processed food and processed carbohydrates. Learn to prepare your own meals. Learn to read labels and avoid high fructose corn syrup, processed chemicals added to increase shelf life and preprepared meals. Avoid fast foods. Learn to eat slowly and plan meals for a week. Try to count calories and be mindful off daily calorie intake. Get into the habit of keeping an eye on your weight by using an appropriate scale. Learn to log exercise and discussed fitness Apps like [employer] which can help keep log off calories taken versus calories burned. Local food should be preferred. Discussed Dirty Dozen Versus Clean Fifteen. Discussed healthy supplements like fish oil, Tumeric, Curcumin, Melatonin, Resveratrol, Probiotics, Vitamin-D, Alpha-Lipoic acid, Vitamin-D and coconut oil. 2. It is important to exercise regularly. Is a good habit to walk at least 30-45 minutes a day. Gentle weightlifting with standard precautions to protect the back. Finding activity like cycling or hiking and get into the habit of engaging in it. Stretching before and after the exercises important. It is also important to contact me if there are any problems like shortness of breath, chest pain, back pain and joint or muscle pain associated with the exercise. 3. Discussed age appropriate gender specific screening guidelines. Colonoscopy needs to start at age 45 with stool for occult blood as appropriate. There is a new test that can test for genetic abnormalities in the stool sample. This would not replace a colonoscopy but could be used as a screening tool for patients who do not want a colonoscopy. We discussed the importance of early detection of colon cancer. 4. Discussed current gender specific guidelines with respect to breast examination, mammogram and pap smear for early detection of breast and cervical cancer. Patient advised to follow up with these appointments. 5. Discussed safe driving and no use of smart phone while driving 6. Age-appropriate immunizations were discussed. A tetanus booster is needed every 10 years. Flu vaccine is recommended every year just before the start of the flu season. Shingles vaccine is recommended after age 50 but not all insurances cover it. Pneumonia vaccine is given after age 65 unless there are certain comorbidities for which it is started earlier. Newly approved RSV vaccine was also discussed COVID booster discussed 7. Diagnostic labs were discussed. These could include CBC CMP and lipids with fasting blood glucose and insulin levels. Vitamin D and hemoglobin A1c testing might be appropriate. 8. Patient and I had a detailed discussion on healthcare proxy and will follow. . I gave form for that as well as [place] order for life sustaining treatment. I screen for depression and she seems to be okay. I counseled on elimination of refined carbohydrates and processed food 9. Patient will be tested for dementia by neuropsychologica l testing if warranted and deemed appropriate by provider Of note, some information is being carried forward from prior records for informational purposes only and is being cited so that efficiency, safety and quality of the patient's care is not compromised This note was prepared using voice recognition software and direct typing Please excuse inadvertent warper fixer or typing errors, or uncorrected word substitutions Although every attempt has been made by the provider to proofread this document, occasional misspellings and typographical errors may still be present Due to the previous pandemic, and the use of personal protective equipment (PPE) This may decrease voice recognition accuracy Inadvertent warper fixer errors may occur 12/29/2023 Type 2 diabetes mellitus without complication, without long-term current use of insulin (ICD-10 - E11.9) Patient Presents for [facility] Acute Concerns/Problem List: 12/28/2023 Hypertension Stable on ROMEL CKD IIIB, Creatinine 1.4-1.6, as high as 2.1, CKD suspect multifactorial including ROMEL inhibitor use, underlying CKD As well as metformin, renal ultrasound stable continue to trend. He is seeing a pharmaceutical sales representative who keeps track of his kidneys, he has an appointment next week GFR is 42 typically under 30 we would discontinue metformin and this is the threshold for SGLT 2 use DM, Stable, A1c 6.5 which is improved, well managed continue metformin at low dosing, no signs of acidosis on labs Surveillance Monitor prescribed him jardiance and metformin combo but insurance does not cover We will cont him on farxiga separately from metform , Will watch his GFR closely chemically euthyroid For Depression, continue SSRI and clonazepam We discussed in detail the management of diabetes mellitus. Emphasis was paid on nutrition, low carbohydrate diet with good fat and protein sources, fruits and vegetables was discussed. Exercise was recommended. Incorporation of daily walking into a routine was discussed. A pedometer goal of 10,000 steps was discussed. Management of diabetes mellitus along with medications to treat the condition was discussed. Importance of diabetic foot exam, diabetic eye exam, urine microalbumin analysis annually was discussed. Side effects of diabetic medications were discussed again. Patient agrees to take medications as prescribed and comply with lifestyle modifications. Chronic kidney disease is usually silent Typical causes include diabetes and high blood pressure as well as dehydration If you have these issues, please make sure that there tightly controlled Ask your PCP what your blood pressure and hemoglobin A1c target should be in no your numbers Blood pressure recordings and sugar recordings should also be discussed Chronic kidney disease are at high risk for cardiovascular events including stroke, PR As well as complications from infections, therefore immunizations are important The best way to monitor kidney function is through blood and urine test You should have these test done periodically If it is best if you complete the test a week or 2 before your visit with your primary care or pharmaceutical sales representative So that the most recent data can be discussed at your visit You should keep accurate medication lists The use of nonsteroidal anti-inflammatory drugs (NSAIDS) should be avoided and cautioned The best diet for people with hypertension and chronic kidney disease include balanced Mediterranean style diet, or DASH Which limit sodium intake below 2000 mg a day, limiting carbohydrate intake under 250 g a day and avoiding simple sugars and sweets Limit consumption of alcohol Caffeine in moderation such as 1-2 cups of regular coffee a day is okay Patient seen for MEDICARE WELLNESS VISIT and examined. Comprehensive discussion was done on the following. 1. Nutrition: It is important to follow a healthy diet based on lots of vegetables and legumes and good fat. Avoid processed food and processed carbohydrates. Learn to prepare your own meals. Learn to read labels and avoid high fructose corn syrup, processed chemicals added to increase shelf life and preprepared meals. Avoid fast foods. Learn to eat slowly and plan meals for a week. Try to count calories and be mindful off daily calorie intake. Get into the habit of keeping an eye on your weight by using an appropriate scale. Learn to log exercise and discussed fitness Apps like [employer] which can help keep log off calories taken versus calories burned. Local food should be preferred. Discussed Dirty Dozen Versus Clean Fifteen. Discussed healthy supplements like fish oil, Tumeric, Curcumin, Melatonin, Resveratrol, Probiotics, Vitamin-D, Alpha-Lipoic acid, Vitamin-D and coconut oil. 2. It is important to exercise regularly. Is a good habit to walk at least 30-45 minutes a day. Gentle weightlifting with standard precautions to protect the back. Finding activity like cycling or hiking and get into the habit of engaging in it. Stretching before and after the exercises important. It is also important to contact me if there are any problems like shortness of breath, chest pain, back pain and joint or muscle pain associated with the exercise. 3. Discussed age appropriate gender specific screening guidelines. Colonoscopy needs to start at age 45 with stool for occult blood as appropriate. There is a new test that can test for genetic abnormalities in the stool sample. This would not replace a colonoscopy but could be used as a screening tool for patients who do not want a colonoscopy. We discussed the importance of early detection of colon cancer. 4. Discussed current gender specific guidelines with respect to breast examination, mammogram and pap smear for early detection of breast and cervical cancer. Patient advised to follow up with these appointments. 5. Discussed safe driving and no use of smart phone while driving 6. Age-appropriate immunizations were discussed. A tetanus booster is needed every 10 years. Flu vaccine is recommended every year just before the start of the flu season. Shingles vaccine is recommended after age 50 but not all insurances cover it. Pneumonia vaccine is given after age 65 unless there are certain comorbidities for which it is started earlier. Newly approved RSV vaccine was also discussed COVID booster discussed 7. Diagnostic labs were discussed. These could include CBC CMP and lipids with fasting blood glucose and insulin levels. Vitamin D and hemoglobin A1c testing might be appropriate. 8. Patient and I had a detailed discussion on healthcare proxy and will follow. . I gave form for that as well as [place] order for life sustaining treatment. I screen for depression and she seems to be okay. I counseled on elimination of refined carbohydrates and processed food 9. Patient will be tested for dementia by neuropsychologica l testing if warranted and deemed appropriate by provider Of note, some information is being carried forward from prior records for informational purposes only and is being cited so that efficiency, safety and quality of the patient's care is not compromised This note was prepared using voice recognition software and direct typing Please excuse inadvertent warper fixer or typing errors, or uncorrected word substitutions Although every attempt has been made by the provider to proofread this document, occasional misspellings and typographical errors may still be present Due to the previous pandemic, and the use of personal protective equipment (PPE) This may decrease voice recognition accuracy Inadvertent warper fixer errors may occur 12/29/2023 Acquired hypothyroidism (ICD-10 - E03.9) Patient Presents for [facility] Acute Concerns/Problem List: 12/28/2023 Hypertension Stable on ROMEL CKD IIIB, Creatinine 1.4-1.6, as high as 2.1, CKD suspect multifactorial including ROMEL inhibitor use, underlying CKD As well as metformin, renal ultrasound stable continue to trend. He is seeing a pharmaceutical sales representative who keeps track of his kidneys, he has an appointment next week GFR is 42 typically under 30 we would discontinue metformin and this is the threshold for SGLT 2 use DM, Stable, A1c 6.5 which is improved, well managed continue metformin at low dosing, no signs of acidosis on labs Surveillance Monitor prescribed him jardiance and metformin combo but insurance does not cover We will cont him on farxiga separately from metform , Will watch his GFR closely chemically euthyroid For Depression, continue SSRI and clonazepam We discussed in detail the management of diabetes mellitus. Emphasis was paid on nutrition, low carbohydrate diet with good fat and protein sources, fruits and vegetables was discussed. Exercise was recommended. Incorporation of daily walking into a routine was discussed. A pedometer goal of 10,000 steps was discussed. Management of diabetes mellitus along with medications to treat the condition was discussed. Importance of diabetic foot exam, diabetic eye exam, urine microalbumin analysis annually was discussed. Side effects of diabetic medications were discussed again. Patient agrees to take medications as prescribed and comply with lifestyle modifications. Chronic kidney disease is usually silent Typical causes include diabetes and high blood pressure as well as dehydration If you have these issues, please make sure that there tightly controlled Ask your PCP what your blood pressure and hemoglobin A1c target should be in no your numbers Blood pressure recordings and sugar recordings should also be discussed Chronic kidney disease are at high risk for cardiovascular events including stroke, PR As well as complications from infections, therefore immunizations are important The best way to monitor kidney function is through blood and urine test You should have these test done periodically If it is best if you complete the test a week or 2 before your visit with your primary care or pharmaceutical sales representative So that the most recent data can be discussed at your visit You should keep accurate medication lists The use of nonsteroidal anti-inflammatory drugs (NSAIDS) should be avoided and cautioned The best diet for people with hypertension and chronic kidney disease include balanced Mediterranean style diet, or DASH Which limit sodium intake below 2000 mg a day, limiting carbohydrate intake under 250 g a day and avoiding simple sugars and sweets Limit consumption of alcohol Caffeine in moderation such as 1-2 cups of regular coffee a day is okay Patient seen for MEDICARE WELLNESS VISIT and examined. Comprehensive discussion was done on the following. 1. Nutrition: It is important to follow a healthy diet based on lots of vegetables and legumes and good fat. Avoid processed food and processed carbohydrates. Learn to prepare your own meals. Learn to read labels and avoid high fructose corn syrup, processed chemicals added to increase shelf life and preprepared meals. Avoid fast foods. Learn to eat slowly and plan meals for a week. Try to count calories and be mindful off daily calorie intake. Get into the habit of keeping an eye on your weight by using an appropriate scale. Learn to log exercise and discussed fitness Apps like [employer] which can help keep log off calories taken versus calories burned. Local food should be preferred. Discussed Dirty Dozen Versus Clean Fifteen. Discussed healthy supplements like fish oil, Tumeric, Curcumin, Melatonin, Resveratrol, Probiotics, Vitamin-D, Alpha-Lipoic acid, Vitamin-D and coconut oil. 2. It is important to exercise regularly. Is a good habit to walk at least 30-45 minutes a day. Gentle weightlifting with standard precautions to protect the back. Finding activity like cycling or hiking and get into the habit of engaging in it. Stretching before and after the exercises important. It is also important to contact me if there are any problems like shortness of breath, chest pain, back pain and joint or muscle pain associated with the exercise. 3. Discussed age appropriate gender specific screening guidelines. Colonoscopy needs to start at age 45 with stool for occult blood as appropriate. There is a new test that can test for genetic abnormalities in the stool sample. This would not replace a colonoscopy but could be used as a screening tool for patients who do not want a colonoscopy. We discussed the importance of early detection of colon cancer. 4. Discussed current gender specific guidelines with respect to breast examination, mammogram and pap smear for early detection of breast and cervical cancer. Patient advised to follow up with these appointments. 5. Discussed safe driving and no use of smart phone while driving 6. Age-appropriate immunizations were discussed. A tetanus booster is needed every 10 years. Flu vaccine is recommended every year just before the start of the flu season. Shingles vaccine is recommended after age 50 but not all insurances cover it. Pneumonia vaccine is given after age 65 unless there are certain comorbidities for which it is started earlier. Newly approved RSV vaccine was also discussed COVID booster discussed 7. Diagnostic labs were discussed. These could include CBC CMP and lipids with fasting blood glucose and insulin levels. Vitamin D and hemoglobin A1c testing might be appropriate. 8. Patient and I had a detailed discussion on healthcare proxy and will follow. . I gave form for that as well as [place] order for life sustaining treatment. I screen for depression and she seems to be okay. I counseled on elimination of refined carbohydrates and processed food 9. Patient will be tested for dementia by neuropsychologica l testing if warranted and deemed appropriate by provider Of note, some information is being carried forward from prior records for informational purposes only and is being cited so that efficiency, safety and quality of the patient's care is not compromised This note was prepared using voice recognition software and direct typing Please excuse inadvertent warper fixer or typing errors, or uncorrected word substitutions Although every attempt has been made by the provider to proofread this document, occasional misspellings and typographical errors may still be present Due to the previous pandemic, and the use of personal protective equipment (PPE) This may decrease voice recognition accuracy Inadvertent warper fixer errors may occur 12/29/2023 Depression, unspecified depression type (ICD-10 - F32.9) Patient Presents for [facility] Acute Concerns/Problem List: 12/28/2023 Hypertension Stable on ROMEL CKD IIIB, Creatinine 1.4-1.6, as high as 2.1, CKD suspect multifactorial including ROMEL inhibitor use, underlying CKD As well as metformin, renal ultrasound stable continue to trend. He is seeing a pharmaceutical sales representative who keeps track of his kidneys, he has an appointment next week GFR is 42 typically under 30 we would discontinue metformin and this is the threshold for SGLT 2 use DM, Stable, A1c 6.5 which is improved, well managed continue metformin at low dosing, no signs of acidosis on labs Surveillance Monitor prescribed him jardiance and metformin combo but insurance does not cover We will cont him on farxiga separately from metform , Will watch his GFR closely chemically euthyroid For Depression, continue SSRI and clonazepam We discussed in detail the management of diabetes mellitus. Emphasis was paid on nutrition, low carbohydrate diet with good fat and protein sources, fruits and vegetables was discussed. Exercise was recommended. Incorporation of daily walking into a routine was discussed. A pedometer goal of 10,000 steps was discussed. Management of diabetes mellitus along with medications to treat the condition was discussed. Importance of diabetic foot exam, diabetic eye exam, urine microalbumin analysis annually was discussed. Side effects of diabetic medications were discussed again. Patient agrees to take medications as prescribed and comply with lifestyle modifications. Chronic kidney disease is usually silent Typical causes include diabetes and high blood pressure as well as dehydration If you have these issues, please make sure that there tightly controlled Ask your PCP what your blood pressure and hemoglobin A1c target should be in no your numbers Blood pressure recordings and sugar recordings should also be discussed Chronic kidney disease are at high risk for cardiovascular events including stroke, PR As well as complications from infections, therefore immunizations are important The best way to monitor kidney function is through blood and urine test You should have these test done periodically If it is best if you complete the test a week or 2 before your visit with your primary care or pharmaceutical sales representative So that the most recent data can be discussed at your visit You should keep accurate medication lists The use of nonsteroidal anti-inflammatory drugs (NSAIDS) should be avoided and cautioned The best diet for people with hypertension and chronic kidney disease include balanced Mediterranean style diet, or DASH Which limit sodium intake below 2000 mg a day, limiting carbohydrate intake under 250 g a day and avoiding simple sugars and sweets Limit consumption of alcohol Caffeine in moderation such as 1-2 cups of regular coffee a day is okay Patient seen for MEDICARE WELLNESS VISIT and examined. Comprehensive discussion was done on the following. 1. Nutrition: It is important to follow a healthy diet based on lots of vegetables and legumes and good fat. Avoid processed food and processed carbohydrates. Learn to prepare your own meals. Learn to read labels and avoid high fructose corn syrup, processed chemicals added to increase shelf life and preprepared meals. Avoid fast foods. Learn to eat slowly and plan meals for a week. Try to count calories and be mindful off daily calorie intake. Get into the habit of keeping an eye on your weight by using an appropriate scale. Learn to log exercise and discussed fitness Apps like [employer] which can help keep log off calories taken versus calories burned. Local food should be preferred. Discussed Dirty Dozen Versus Clean Fifteen. Discussed healthy supplements like fish oil, Tumeric, Curcumin, Melatonin, Resveratrol, Probiotics, Vitamin-D, Alpha-Lipoic acid, Vitamin-D and coconut oil. 2. It is important to exercise regularly. Is a good habit to walk at least 30-45 minutes a day. Gentle weightlifting with standard precautions to protect the back. Finding activity like cycling or hiking and get into the habit of engaging in it. Stretching before and after the exercises important. It is also important to contact me if there are any problems like shortness of breath, chest pain, back pain and joint or muscle pain associated with the exercise. 3. Discussed age appropriate gender specific screening guidelines. Colonoscopy needs to start at age 45 with stool for occult blood as appropriate. There is a new test that can test for genetic abnormalities in the stool sample. This would not replace a colonoscopy but could be used as a screening tool for patients who do not want a colonoscopy. We discussed the importance of early detection of colon cancer. 4. Discussed current gender specific guidelines with respect to breast examination, mammogram and pap smear for early detection of breast and cervical cancer. Patient advised to follow up with these appointments. 5. Discussed safe driving and no use of smart phone while driving 6. Age-appropriate immunizations were discussed. A tetanus booster is needed every 10 years. Flu vaccine is recommended every year just before the start of the flu season. Shingles vaccine is recommended after age 50 but not all insurances cover it. Pneumonia vaccine is given after age 65 unless there are certain comorbidities for which it is started earlier. Newly approved RSV vaccine was also discussed COVID booster discussed 7. Diagnostic labs were discussed. These could include CBC CMP and lipids with fasting blood glucose and insulin levels. Vitamin D and hemoglobin A1c testing might be appropriate. 8. Patient and I had a detailed discussion on healthcare proxy and will follow. . I gave form for that as well as [place] order for life sustaining treatment. I screen for depression and she seems to be okay. I counseled on elimination of refined carbohydrates and processed food 9. Patient will be tested for dementia by neuropsychologica l testing if warranted and deemed appropriate by provider Of note, some information is being carried forward from prior records for informational purposes only and is being cited so that efficiency, safety and quality of the patient's care is not compromised This note was prepared using voice recognition software and direct typing Please excuse inadvertent warper fixer or typing errors, or uncorrected word substitutions Although every attempt has been made by the provider to proofread this document, occasional misspellings and typographical errors may still be present Due to the previous pandemic, and the use of personal protective equipment (PPE) This may decrease voice recognition accuracy Inadvertent warper fixer errors may occur 12/29/2023 Stage 3b chronic kidney disease (ICD-10 - N18.32) Patient Presents for [facility] Acute Concerns/Problem List: 12/28/2023 Hypertension Stable on ROMEL CKD IIIB, Creatinine 1.4-1.6, as high as 2.1, CKD suspect multifactorial including ROMEL inhibitor use, underlying CKD As well as metformin, renal ultrasound stable continue to trend. He is seeing a pharmaceutical sales representative who keeps track of his kidneys, he has an appointment next week GFR is 42 typically under 30 we would discontinue metformin and this is the threshold for SGLT 2 use DM, Stable, A1c 6.5 which is improved, well managed continue metformin at low dosing, no signs of acidosis on labs Surveillance Monitor prescribed him jardiance and metformin combo but insurance does not cover We will cont him on farxiga separately from metform , Will watch his GFR closely chemically euthyroid For Depression, continue SSRI and clonazepam We discussed in detail the management of diabetes mellitus. Emphasis was paid on nutrition, low carbohydrate diet with good fat and protein sources, fruits and vegetables was discussed. Exercise was recommended. Incorporation of daily walking into a routine was discussed. A pedometer goal of 10,000 steps was discussed. Management of diabetes mellitus along with medications to treat the condition was discussed. Importance of diabetic foot exam, diabetic eye exam, urine microalbumin analysis annually was discussed. Side effects of diabetic medications were discussed again. Patient agrees to take medications as prescribed and comply with lifestyle modifications. Chronic kidney disease is usually silent Typical causes include diabetes and high blood pressure as well as dehydration If you have these issues, please make sure that there tightly controlled Ask your PCP what your blood pressure and hemoglobin A1c target should be in no your numbers Blood pressure recordings and sugar recordings should also be discussed Chronic kidney disease are at high risk for cardiovascular events including stroke, PR As well as complications from infections, therefore immunizations are important The best way to monitor kidney function is through blood and urine test You should have these test done periodically If it is best if you complete the test a week or 2 before your visit with your primary care or pharmaceutical sales representative So that the most recent data can be discussed at your visit You should keep accurate medication lists The use of nonsteroidal anti-inflammatory drugs (NSAIDS) should be avoided and cautioned The best diet for people with hypertension and chronic kidney disease include balanced Mediterranean style diet, or DASH Which limit sodium intake below 2000 mg a day, limiting carbohydrate intake under 250 g a day and avoiding simple sugars and sweets Limit consumption of alcohol Caffeine in moderation such as 1-2 cups of regular coffee a day is okay Patient seen for MEDICARE WELLNESS VISIT and examined. Comprehensive discussion was done on the following. 1. Nutrition: It is important to follow a healthy diet based on lots of vegetables and legumes and good fat. Avoid processed food and processed carbohydrates. Learn to prepare your own meals. Learn to read labels and avoid high fructose corn syrup, processed chemicals added to increase shelf life and preprepared meals. Avoid fast foods. Learn to eat slowly and plan meals for a week. Try to count calories and be mindful off daily calorie intake. Get into the habit of keeping an eye on your weight by using an appropriate scale. Learn to log exercise and discussed fitness Apps like [employer] which can help keep log off calories taken versus calories burned. Local food should be preferred. Discussed Dirty Dozen Versus Clean Fifteen. Discussed healthy supplements like fish oil, Tumeric, Curcumin, Melatonin, Resveratrol, Probiotics, Vitamin-D, Alpha-Lipoic acid, Vitamin-D and coconut oil. 2. It is important to exercise regularly. Is a good habit to walk at least 30-45 minutes a day. Gentle weightlifting with standard precautions to protect the back. Finding activity like cycling or hiking and get into the habit of engaging in it. Stretching before and after the exercises important. It is also important to contact me if there are any problems like shortness of breath, chest pain, back pain and joint or muscle pain associated with the exercise. 3. Discussed age appropriate gender specific screening guidelines. Colonoscopy needs to start at age 45 with stool for occult blood as appropriate. There is a new test that can test for genetic abnormalities in the stool sample. This would not replace a colonoscopy but could be used as a screening tool for patients who do not want a colonoscopy. We discussed the importance of early detection of colon cancer. 4. Discussed current gender specific guidelines with respect to breast examination, mammogram and pap smear for early detection of breast and cervical cancer. Patient advised to follow up with these appointments. 5. Discussed safe driving and no use of smart phone while driving 6. Age-appropriate immunizations were discussed. A tetanus booster is needed every 10 years. Flu vaccine is recommended every year just before the start of the flu season. Shingles vaccine is recommended after age 50 but not all insurances cover it. Pneumonia vaccine is given after age 65 unless there are certain comorbidities for which it is started earlier. Newly approved RSV vaccine was also discussed COVID booster discussed 7. Diagnostic labs were discussed. These could include CBC CMP and lipids with fasting blood glucose and insulin levels. Vitamin D and hemoglobin A1c testing might be appropriate. 8. Patient and I had a detailed discussion on healthcare proxy and will follow. . I gave form for that as well as [place] order for life sustaining treatment. I screen for depression and she seems to be okay. I counseled on elimination of refined carbohydrates and processed food 9. Patient will be tested for dementia by neuropsychologica l testing if warranted and deemed appropriate by provider Of note, some information is being carried forward from prior records for informational purposes only and is being cited so that efficiency, safety and quality of the patient's care is not compromised This note was prepared using voice recognition software and direct typing Please excuse inadvertent warper fixer or typing errors, or uncorrected word substitutions Although every attempt has been made by the provider to proofread this document, occasional misspellings and typographical errors may still be present Due to the previous pandemic, and the use of personal protective equipment (PPE) This may decrease voice recognition accuracy Inadvertent warper fixer errors may occur 12/29/2023 Hyperlipidemia, unspecified (ICD-10 - E78.5) Patient Presents for [facility] Acute Concerns/Problem List: 12/28/2023 Hypertension Stable on ROMEL CKD IIIB, Creatinine 1.4-1.6, as high as 2.1, CKD suspect multifactorial including ROMEL inhibitor use, underlying CKD As well as metformin, renal ultrasound stable continue to trend. He is seeing a pharmaceutical sales representative who keeps track of his kidneys, he has an appointment next week GFR is 42 typically under 30 we would discontinue metformin and this is the threshold for SGLT 2 use DM, Stable, A1c 6.5 which is improved, well managed continue metformin at low dosing, no signs of acidosis on labs Surveillance Monitor prescribed him jardiance and metformin combo but insurance does not cover We will cont him on farxiga separately from metform , Will watch his GFR closely chemically euthyroid For Depression, continue SSRI and clonazepam We discussed in detail the management of diabetes mellitus. Emphasis was paid on nutrition, low carbohydrate diet with good fat and protein sources, fruits and vegetables was discussed. Exercise was recommended. Incorporation of daily walking into a routine was discussed. A pedometer goal of 10,000 steps was discussed. Management of diabetes mellitus along with medications to treat the condition was discussed. Importance of diabetic foot exam, diabetic eye exam, urine microalbumin analysis annually was discussed. Side effects of diabetic medications were discussed again. Patient agrees to take medications as prescribed and comply with lifestyle modifications. Chronic kidney disease is usually silent Typical causes include diabetes and high blood pressure as well as dehydration If you have these issues, please make sure that there tightly controlled Ask your PCP what your blood pressure and hemoglobin A1c target should be in no your numbers Blood pressure recordings and sugar recordings should also be discussed Chronic kidney disease are at high risk for cardiovascular events including stroke, PR As well as complications from infections, therefore immunizations are important The best way to monitor kidney function is through blood and urine test You should have these test done periodically If it is best if you complete the test a week or 2 before your visit with your primary care or pharmaceutical sales representative So that the most recent data can be discussed at your visit You should keep accurate medication lists The use of nonsteroidal anti-inflammatory drugs (NSAIDS) should be avoided and cautioned The best diet for people with hypertension and chronic kidney disease include balanced Mediterranean style diet, or DASH Which limit sodium intake below 2000 mg a day, limiting carbohydrate intake under 250 g a day and avoiding simple sugars and sweets Limit consumption of alcohol Caffeine in moderation such as 1-2 cups of regular coffee a day is okay Patient seen for MEDICARE WELLNESS VISIT and examined. Comprehensive discussion was done on the following. 1. Nutrition: It is important to follow a healthy diet based on lots of vegetables and legumes and good fat. Avoid processed food and processed carbohydrates. Learn to prepare your own meals. Learn to read labels and avoid high fructose corn syrup, processed chemicals added to increase shelf life and preprepared meals. Avoid fast foods. Learn to eat slowly and plan meals for a week. Try to count calories and be mindful off daily calorie intake. Get into the habit of keeping an eye on your weight by using an appropriate scale. Learn to log exercise and discussed fitness Apps like [employer] which can help keep log off calories taken versus calories burned. Local food should be preferred. Discussed Dirty Dozen Versus Clean Fifteen. Discussed healthy supplements like fish oil, Tumeric, Curcumin, Melatonin, Resveratrol, Probiotics, Vitamin-D, Alpha-Lipoic acid, Vitamin-D and coconut oil. 2. It is important to exercise regularly. Is a good habit to walk at least 30-45 minutes a day. Gentle weightlifting with standard precautions to protect the back. Finding activity like cycling or hiking and get into the habit of engaging in it. Stretching before and after the exercises important. It is also important to contact me if there are any problems like shortness of breath, chest pain, back pain and joint or muscle pain associated with the exercise. 3. Discussed age appropriate gender specific screening guidelines. Colonoscopy needs to start at age 45 with stool for occult blood as appropriate. There is a new test that can test for genetic abnormalities in the stool sample. This would not replace a colonoscopy but could be used as a screening tool for patients who do not want a colonoscopy. We discussed the importance of early detection of colon cancer. 4. Discussed current gender specific guidelines with respect to breast examination, mammogram and pap smear for early detection of breast and cervical cancer. Patient advised to follow up with these appointments. 5. Discussed safe driving and no use of smart phone while driving 6. Age-appropriate immunizations were discussed. A tetanus booster is needed every 10 years. Flu vaccine is recommended every year just before the start of the flu season. Shingles vaccine is recommended after age 50 but not all insurances cover it. Pneumonia vaccine is given after age 65 unless there are certain comorbidities for which it is started earlier. Newly approved RSV vaccine was also discussed COVID booster discussed 7. Diagnostic labs were discussed. These could include CBC CMP and lipids with fasting blood glucose and insulin levels. Vitamin D and hemoglobin A1c testing might be appropriate. 8. Patient and I had a detailed discussion on healthcare proxy and will follow. . I gave form for that as well as [place] order for life sustaining treatment. I screen for depression and she seems to be okay. I counseled on elimination of refined carbohydrates and processed food 9. Patient will be tested for dementia by neuropsychologica l testing if warranted and deemed appropriate by provider Of note, some information is being carried forward from prior records for informational purposes only and is being cited so that efficiency, safety and quality of the patient's care is not compromised This note was prepared using voice recognition software and direct typing Please excuse inadvertent warper fixer or typing errors, or uncorrected word substitutions Although every attempt has been made by the provider to proofread this document, occasional misspellings and typographical errors may still be present Due to the previous pandemic, and the use of personal protective equipment (PPE) This may decrease voice recognition accuracy Inadvertent warper fixer errors may occur 12/29/2023 Encounter for screening for depression (ICD-10 - Z13.31) Patient Presents for [facility] Acute Concerns/Problem List: 12/28/2023 Hypertension Stable on ROMEL CKD IIIB, Creatinine 1.4-1.6, as high as 2.1, CKD suspect multifactorial including ROMEL inhibitor use, underlying CKD As well as metformin, renal ultrasound stable continue to trend. He is seeing a pharmaceutical sales representative who keeps track of his kidneys, he has an appointment next week GFR is 42 typically under 30 we would discontinue metformin and this is the threshold for SGLT 2 use DM, Stable, A1c 6.5 which is improved, well managed continue metformin at low dosing, no signs of acidosis on labs Surveillance Monitor prescribed him jardiance and metformin combo but insurance does not cover We will cont him on farxiga separately from metform , Will watch his GFR closely chemically euthyroid For Depression, continue SSRI and clonazepam We discussed in detail the management of diabetes mellitus. Emphasis was paid on nutrition, low carbohydrate diet with good fat and protein sources, fruits and vegetables was discussed. Exercise was recommended. Incorporation of daily walking into a routine was discussed. A pedometer goal of 10,000 steps was discussed. Management of diabetes mellitus along with medications to treat the condition was discussed. Importance of diabetic foot exam, diabetic eye exam, urine microalbumin analysis annually was discussed. Side effects of diabetic medications were discussed again. Patient agrees to take medications as prescribed and comply with lifestyle modifications. Chronic kidney disease is usually silent Typical causes include diabetes and high blood pressure as well as dehydration If you have these issues, please make sure that there tightly controlled Ask your PCP what your blood pressure and hemoglobin A1c target should be in no your numbers Blood pressure recordings and sugar recordings should also be discussed Chronic kidney disease are at high risk for cardiovascular events including stroke, PR As well as complications from infections, therefore immunizations are important The best way to monitor kidney function is through blood and urine test You should have these test done periodically If it is best if you complete the test a week or 2 before your visit with your primary care or pharmaceutical sales representative So that the most recent data can be discussed at your visit You should keep accurate medication lists The use of nonsteroidal anti-inflammatory drugs (NSAIDS) should be avoided and cautioned The best diet for people with hypertension and chronic kidney disease include balanced Mediterranean style diet, or DASH Which limit sodium intake below 2000 mg a day, limiting carbohydrate intake under 250 g a day and avoiding simple sugars and sweets Limit consumption of alcohol Caffeine in moderation such as 1-2 cups of regular coffee a day is okay Patient seen for MEDICARE WELLNESS VISIT and examined. Comprehensive discussion was done on the following. 1. Nutrition: It is important to follow a healthy diet based on lots of vegetables and legumes and good fat. Avoid processed food and processed carbohydrates. Learn to prepare your own meals. Learn to read labels and avoid high fructose corn syrup, processed chemicals added to increase shelf life and preprepared meals. Avoid fast foods. Learn to eat slowly and plan meals for a week. Try to count calories and be mindful off daily calorie intake. Get into the habit of keeping an eye on your weight by using an appropriate scale. Learn to log exercise and discussed fitness Apps like [employer] which can help keep log off calories taken versus calories burned. Local food should be preferred. Discussed Dirty Dozen Versus Clean Fifteen. Discussed healthy supplements like fish oil, Tumeric, Curcumin, Melatonin, Resveratrol, Probiotics, Vitamin-D, Alpha-Lipoic acid, Vitamin-D and coconut oil. 2. It is important to exercise regularly. Is a good habit to walk at least 30-45 minutes a day. Gentle weightlifting with standard precautions to protect the back. Finding activity like cycling or hiking and get into the habit of engaging in it. Stretching before and after the exercises important. It is also important to contact me if there are any problems like shortness of breath, chest pain, back pain and joint or muscle pain associated with the exercise. 3. Discussed age appropriate gender specific screening guidelines. Colonoscopy needs to start at age 45 with stool for occult blood as appropriate. There is a new test that can test for genetic abnormalities in the stool sample. This would not replace a colonoscopy but could be used as a screening tool for patients who do not want a colonoscopy. We discussed the importance of early detection of colon cancer. 4. Discussed current gender specific guidelines with respect to breast examination, mammogram and pap smear for early detection of breast and cervical cancer. Patient advised to follow up with these appointments. 5. Discussed safe driving and no use of smart phone while driving 6. Age-appropriate immunizations were discussed. A tetanus booster is needed every 10 years. Flu vaccine is recommended every year just before the start of the flu season. Shingles vaccine is recommended after age 50 but not all insurances cover it. Pneumonia vaccine is given after age 65 unless there are certain comorbidities for which it is started earlier. Newly approved RSV vaccine was also discussed COVID booster discussed 7. Diagnostic labs were discussed. These could include CBC CMP and lipids with fasting blood glucose and insulin levels. Vitamin D and hemoglobin A1c testing might be appropriate. 8. Patient and I had a detailed discussion on healthcare proxy and will follow. . I gave form for that as well as [place] order for life sustaining treatment. I screen for depression and she seems to be okay. I counseled on elimination of refined carbohydrates and processed food 9. Patient will be tested for dementia by neuropsychologica l testing if warranted and deemed appropriate by provider Of note, some information is being carried forward from prior records for informational purposes only and is being cited so that efficiency, safety and quality of the patient's care is not compromised This note was prepared using voice recognition software and direct typing Please excuse inadvertent warper fixer or typing errors, or uncorrected word substitutions Although every attempt has been made by the provider to proofread this document, occasional misspellings and typographical errors may still be present Due to the previous pandemic, and the use of personal protective equipment (PPE) This may decrease voice recognition accuracy Inadvertent warper fixer errors may occur 12/29/2023 Encounter for screening for other disorder (ICD-10 - Z13.89) Patient Presents for [facility] Acute Concerns/Problem List: 12/28/2023 Hypertension Stable on ROMEL CKD IIIB, Creatinine 1.4-1.6, as high as 2.1, CKD suspect multifactorial including ROMEL inhibitor use, underlying CKD As well as metformin, renal ultrasound stable continue to trend. He is seeing a pharmaceutical sales representative who keeps track of his kidneys, he has an appointment next week GFR is 42 typically under 30 we would discontinue metformin and this is the threshold for SGLT 2 use DM, Stable, A1c 6.5 which is improved, well managed continue metformin at low dosing, no signs of acidosis on labs Surveillance Monitor prescribed him jardiance and metformin combo but insurance does not cover We will cont him on farxiga separately from metform , Will watch his GFR closely chemically euthyroid For Depression, continue SSRI and clonazepam We discussed in detail the management of diabetes mellitus. Emphasis was paid on nutrition, low carbohydrate diet with good fat and protein sources, fruits and vegetables was discussed. Exercise was recommended. Incorporation of daily walking into a routine was discussed. A pedometer goal of 10,000 steps was discussed. Management of diabetes mellitus along with medications to treat the condition was discussed. Importance of diabetic foot exam, diabetic eye exam, urine microalbumin analysis annually was discussed. Side effects of diabetic medications were discussed again. Patient agrees to take medications as prescribed and comply with lifestyle modifications. Chronic kidney disease is usually silent Typical causes include diabetes and high blood pressure as well as dehydration If you have these issues, please make sure that there tightly controlled Ask your PCP what your blood pressure and hemoglobin A1c target should be in no your numbers Blood pressure recordings and sugar recordings should also be discussed Chronic kidney disease are at high risk for cardiovascular events including stroke, PR As well as complications from infections, therefore immunizations are important The best way to monitor kidney function is through blood and urine test You should have these test done periodically If it is best if you complete the test a week or 2 before your visit with your primary care or pharmaceutical sales representative So that the most recent data can be discussed at your visit You should keep accurate medication lists The use of nonsteroidal anti-inflammatory drugs (NSAIDS) should be avoided and cautioned The best diet for people with hypertension and chronic kidney disease include balanced Mediterranean style diet, or DASH Which limit sodium intake below 2000 mg a day, limiting carbohydrate intake under 250 g a day and avoiding simple sugars and sweets Limit consumption of alcohol Caffeine in moderation such as 1-2 cups of regular coffee a day is okay Patient seen for MEDICARE WELLNESS VISIT and examined. Comprehensive discussion was done on the following. 1. Nutrition: It is important to follow a healthy diet based on lots of vegetables and legumes and good fat. Avoid processed food and processed carbohydrates. Learn to prepare your own meals. Learn to read labels and avoid high fructose corn syrup, processed chemicals added to increase shelf life and preprepared meals. Avoid fast foods. Learn to eat slowly and plan meals for a week. Try to count calories and be mindful off daily calorie intake. Get into the habit of keeping an eye on your weight by using an appropriate scale. Learn to log exercise and discussed fitness Apps like [employer] which can help keep log off calories taken versus calories burned. Local food should be preferred. Discussed Dirty Dozen Versus Clean Fifteen. Discussed healthy supplements like fish oil, Tumeric, Curcumin, Melatonin, Resveratrol, Probiotics, Vitamin-D, Alpha-Lipoic acid, Vitamin-D and coconut oil. 2. It is important to exercise regularly. Is a good habit to walk at least 30-45 minutes a day. Gentle weightlifting with standard precautions to protect the back. Finding activity like cycling or hiking and get into the habit of engaging in it. Stretching before and after the exercises important. It is also important to contact me if there are any problems like shortness of breath, chest pain, back pain and joint or muscle pain associated with the exercise. 3. Discussed age appropriate gender specific screening guidelines. Colonoscopy needs to start at age 45 with stool for occult blood as appropriate. There is a new test that can test for genetic abnormalities in the stool sample. This would not replace a colonoscopy but could be used as a screening tool for patients who do not want a colonoscopy. We discussed the importance of early detection of colon cancer. 4. Discussed current gender specific guidelines with respect to breast examination, mammogram and pap smear for early detection of breast and cervical cancer. Patient advised to follow up with these appointments. 5. Discussed safe driving and no use of smart phone while driving 6. Age-appropriate immunizations were discussed. A tetanus booster is needed every 10 years. Flu vaccine is recommended every year just before the start of the flu season. Shingles vaccine is recommended after age 50 but not all insurances cover it. Pneumonia vaccine is given after age 65 unless there are certain comorbidities for which it is started earlier. Newly approved RSV vaccine was also discussed COVID booster discussed 7. Diagnostic labs were discussed. These could include CBC CMP and lipids with fasting blood glucose and insulin levels. Vitamin D and hemoglobin A1c testing might be appropriate. 8. Patient and I had a detailed discussion on healthcare proxy and will follow. . I gave form for that as well as [place] order for life sustaining treatment. I screen for depression and she seems to be okay. I counseled on elimination of refined carbohydrates and processed food 9. Patient will be tested for dementia by neuropsychologica l testing if warranted and deemed appropriate by provider Of note, some information is being carried forward from prior records for informational purposes only and is being cited so that efficiency, safety and quality of the patient's care is not compromised This note was prepared using voice recognition software and direct typing Please excuse inadvertent warper fixer or typing errors, or uncorrected word substitutions Although every attempt has been made by the provider to proofread this document, occasional misspellings and typographical errors may still be present Due to the previous pandemic, and the use of personal protective equipment (PPE) This may decrease voice recognition accuracy Inadvertent warper fixer errors may occur Plan Of Treatment Medication Medication Name Sig Start Date Stop Date Notes Farxiga 10 MG 1 tablet Orally Once a day; Duration: 90 days Next Appt Details Provider Name:MAJOR SARABAI, 08/23/2025 09:00:00 AM, [address] [facility], [facility] [address], [place], [address], Progress Notes * LAMBERTO MELENDREZ EDOB:[birth year] (70 yo M)Acc No.[id number]:12/29/2023 Progress Note Patient: Laura ManzanoLAMBERTO HEAD Jael Provider: Fitz SARABIA NP :[id number] A ge:68 Y S ex:Male Date:12/29/2023 Address:[address] [place], [place] [id number] Subjective: * Chief Complaints: * * HPI: C onstitutional: Patient is here for a Medicare wellness visit. Complete paperwork was reviewed and updated and has been filed and scan. Age appropriate screening measures reviewed Depression screen completed. Alcohol audit screening completed. Obesity screen completed. Cardiovascular risk stratification screen completed. Cognition assessed Fall risk assessed Discussed healthcare proxy. Discussed [place] order for life sustaining treatment, Comprehensive fasting labs reviewed Patient seen and examined. Full past medical history, social history, family history, allergies and current medications were reviewed and updated. Acute Concerns/Problem List: 12/28/2023 Recently seen in the ER for migraine headaches Currently attending [facility] for fitness Has additionally joined [facility] Moved to [place] in February 2023 He tells me he has agoraphobia, PTSD and depression he is followed by psychologist and psychiatrist He is on duloxetine, clonazepam he is inquiring about CBD and THC for the use of this disorder his mental illness and conditions are stable on med regimen TTE in 2020 normal wall motion, no valvular abnormality, EF of about 55% He is also on metformin 500 daily at this time Blood pressure stable His renal ultrasound was unremarkable I did put him on Farxiga which has helped tremendously, as well as renal protection CKD stage IIIb creatinine is stabulizing looks like baseline is 1.4-1.6, As high as 2.1 followed by Monty Jimenez, on Sglt-2, ROMEL: sees him regularly Comprehensive labs are reviewed, 12/2023 Total cholesterol 205, LDL 122, HDL 45, triglycerides 236 Electrolytes renal function LFTs mostly stable Creatinine 1.6, GFR 44 CBC is stable Urinalysis unremarkable Hemoglobin A1c of 6.9* Previously 6.5, 6.1 PSA 4.5 TSH 2.2 Vitamin D 43 UA stable with glucosuria Health maintenance DM Optho : 02/2023 RSV 07/2023 Covid x4 MRNA Flu 2022: 05/2023 shingrix/pneumovax: 2020 TD 2021 *Cscope: 2014 , History of tubular adenoma and polyp needs repeat @ [facility], states he will call. * ROS: A ll Other Systems: Review of Systems (ROS) A ll others negative except those mentioned in HPI. * Medical History: * Medications: T aking Ibuprofen 400 MG Tablet 1 tablet with food or milk as needed Orally Three times a day , Taking Amoxicillin 250 MG Capsule 2 capsules Orally Three times a day , Taking Farxiga 10 MG Tablet 1 tablet Orally Once a day , Taking Vitamin C 500 MG Tablet 1 tablet Orally Once a day , Taking FLUoxetine HCl 60 MG Tablet 1 tablet 80 mg Orally Once a day , Taking clonazePAM 0.5 MG Tablet 1 tablet Orally tid , Taking Fish Oil 1000 MG Capsule 1 capsule Orally Once a day , Taking Vitamin B12 1000 MCG Tablet Extended Release 1 tablet Orally Once a day , Taking Vitamin D 50 MCG (2000 UT) Capsule 1 capsule Orally twice a week , Taking Propranolol HCl 20 MG Tablet Take 1 tablet by mouth once daily , Taking Levothyroxine Sodium 75 MCG Tablet TAKE 1 TABLET BY MOUTH ONCE DAILY IN THE MORNING ON AN EMPTY STOMACH , Taking Farxiga 10 MG Tablet 1 tablet Orally Once a day , Taking Pravastatin Sodium 40 MG Tablet 1 tablet Orally Once a day , Taking metFORMIN HCl 500 MG Tablet TAKE 1 TABLET BY MOUTH ONCE DAILY WITH A MEAL , Taking Lisinopril 10 MG Tablet Take 1 tablet by mouth once daily , Not-Taking Zithromax Z-Anthony 250 MG Tablet as directed Orally daily Objective: * Vitals: * Examination: G eneral Examination: GENERAL APPEARANCE: i n no acute distress, well developed, well nourished. H EAD: n ormocephalic, atraumatic. E YES: p upils equal, round, reactive to light and accommodation. E ARS: n ormal. O RAL CAVITY: m ucosa moist. T HROAT: laura medeiros. N MERYL/THYROID: n meryl supple, full range of motion, no cervical lymphadenopathy. S KIN: n o suspicious lesions, warm and dry. H EART: n o murmurs, regular rate and rhythm, S1, S2 normal. L UNGS: c lear to auscultation bilaterally. A BDOMEN: n ormal, bowel sounds present, soft, nontender, nondistended. E XTREMITIES: n o clubbing, cyanosis, or edema. N EUROLOGIC: n onfocal, motor strength normal upper and lower extremities, sensory exam intact. Assessment: * Assessment: 1. E ncounter for general adult medical examination without abnormal findings - Z00.00 (Primary) 2 . E ssential (primary) hypertension - I10 3 . T ype 2 diabetes mellitus without complication, without long-term current use of insulin - E11.9 4. A cquired hypothyroidism - E03.9 5 . D epression, unspecified depression type - F32.9 6 . S tage 3b chronic kidney disease - N18.32 7 . H yperlipidemia, unspecified - E78.5 8 . E ncounter for screening for depression - Z13.31 9 . E ncounter for screening for other disorder - Z13.89 ? Patient Presents for [facility] Acute Concerns/Problem List: 12/28/2023 Hypertension Stable on ROMEL CKD IIIB, Creatinine 1.4-1.6, as high as 2.1, CKD suspect multifactorial including ROMEL inhibitor use, underlying CKD As well as metformin, renal ultrasound stable continue to trend. He is seeing a pharmaceutical sales representative who keeps track of his kidneys, he has an appointment next week GFR is 42 typically under 30 we would discontinue metformin and this is the threshold for SGLT 2 use DM, Stable, A1c 6.5 which is improved, well managed continue metformin at low dosing, no signs of acidosis on labs Surveillance Monitor prescribed him jardiance and metformin combo but insurance does not cover We will cont him on farxiga separately [facility] , Will watch his GFR closely chemically euthyroid For Depression, continue SSRI and clonazepam We discussed in detail the management of diabetes mellitus. Emphasis was paid on nutrition, low carbohydrate diet with good fat and protein sources, fruits and vegetables was discussed. Exercise was recommended. Incorporation of daily walking into a routine was discussed. A pedometer goal of 10,000 steps was discussed. Management of diabetes mellitus along with medications to treat the condition was discussed. Importance of diabetic foot exam, diabetic eye exam, urine microalbumin analysis annually was discussed. Side effects of diabetic medications were discussed again. Patient agrees to take medications as prescribed and comply with lifestyle modifications. Chronic kidney disease is usually silent Typical causes include diabetes and high blood pressure as well as dehydration If you have these issues, please make sure that there tightly controlled Ask your PCP what your blood pressure and hemoglobin A1c target should be in no your numbers Blood pressure recordings and sugar recordings should also be discussed Chronic kidney disease are at high risk for cardiovascular events including stroke, PR As well as complications from infections, therefore immunizations are important The best way to monitor kidney function is through blood and urine test You should have these test done periodically If it is best if you complete the test a week or 2 before your visit with your primary care or pharmaceutical sales representative So that the most recent data can be discussed at your visit You should keep accurate medication lists The use of nonsteroidal anti-inflammatory drugs (NSAIDS) should be avoided and cautioned The best diet for people with hypertension and chronic kidney disease include balanced Mediterranean style diet, or DASH Which limit sodium intake below 2000 mg a day, limiting carbohydrate intake under 250 g a day and avoiding simple sugars and sweets Limit consumption of alcohol Caffeine in moderation such as 1-2 cups of regular coffee a day is okay Patient seen for MEDICARE WELLNESS VISIT and examined. Comprehensive discussion was done on the following. 1. Nutrition: It is important to follow a healthy diet based on lots of vegetables and legumes and good fat. Avoid processed food and processed carbohydrates. Learn to prepare your own meals. Learn to read labels and avoid high fructose corn syrup, processed chemicals added to increase shelf life and preprepared meals. Avoid fast foods. Learn to eat slowly and plan meals for a week. Try to count calories and be mindful off daily calorie intake. Get into the habit of keeping an eye on your weight by using an appropriate scale. Learn to log exercise and discussed fitness Apps like [employer] which can help keep log off calories taken versus calories burned. Local food should be preferred. Discussed [employer] Versus Clean Fifteen. Discussed healthy supplements like fish oil, Tumeric, Curcumin, Melatonin, Resveratrol, Probiotics, Vitamin-D, Alpha-Lipoic acid, Vitamin-D and coconut oil. 2. It is important to exercise regularly. Is a good habit to walk at least 30-45 minutes a day. Gentle weightlifting with standard precautions to protect the back. Finding activity like cycling or hiking and get into the habit of engaging in it. Stretching before and after the exercises important. It is also important to contact me if there are any problems like shortness of breath, chest pain, back pain and joint or muscle pain associated with the exercise. 3. Discussed age appropriate gender specific screening guidelines. Colonoscopy needs to start at age 45 with stool for occult blood as appropriate. There is a new test that can test for genetic abnormalities in the stool sample. This would not replace a colonoscopy but could be used as a screening tool for patients who do not want a colonoscopy. We discussed the importance of early detection of colon cancer. 4. Discussed current gender specific guidelines with respect to breast examination, mammogram and pap smear for early detection of breast and cervical cancer. Patient advised to follow up with these appointments. 5. Discussed safe driving and no use of smart phone while driving 6. Age-appropriate immunizations were discussed. A tetanus booster is needed every 10 years. Flu vaccine is recommended every year just before the start of the flu season. Shingles vaccine is recommended after age 50 but not all insurances cover it. Pneumonia vaccine is given after age 65 unless there are certain comorbidities for which it is started earlier. Newly approved RSV vaccine was also discussed COVID booster discussed 7. Diagnostic labs were discussed. These could include CBC CMP and lipids with fasting blood glucose and insulin levels. Vitamin D and hemoglobin A1c testing might be appropriate. 8. Patient and I had a detailed discussion on healthcare proxy and will follow. . I gave form for that as well as [place] order for life sustaining treatment. I screen for depression and she seems to be okay. I counseled on elimination of refined carbohydrates and processed food 9. Patient will be tested for dementia by neuropsychologica l testing if warranted and deemed appropriate by provider Of note, some information is being carried forward from prior records for informational purposes only and is being cited so that efficiency, safety and quality of the patient's care is not compromised This note was prepared using voice recognition software and direct typing Please excuse inadvertent warper fixer or typing errors, or uncorrected word substitutions Although every attempt has been made by the provider to proofread this document, occasional misspellings and typographical errors may still be present Due to the previous pandemic, and the use of personal protective equipment (PPE) This may decrease voice recognition accuracy Inadvertent warper fixer errors may occur. Plan: * Treatment: * Procedure Codes: 9 9199 NO SHOW OFFICE VISIT * Images: Billing Information: * Visit Code: * Procedure Codes: 30685 NO SHOW OFFICE VISIT. Care Plan Details* * Electronic signature of ONELIA GARCIA NO on 06/12/2025 at 03:09 PM EDT Sign off status: Pending * Provider: Fitz SARABIA NP Date: 0 12/29/2023 Generated for Viki hanks/Guille/Aby on: 1 03:09 PM EDT History and Physical Notes * HPI (History of Present Illness) Category Sub-Category Detail Notes Category Not es Constitutional Patient is here for a Medicare wellness visit. Complete paperwork was reviewed and updated and has been filed and scan. Age appropriate screening measures reviewed Depression screen completed. Alcohol audit screening completed. Obesity screen completed. Cardiovascular risk stratification screen completed. Cognition assessed Fall risk assessed Discussed healthcare proxy. Discussed [place] order for life sustaining treatment, Comprehensive fasting labs reviewed Patient seen and examined. Full past medical history, social history, family history, allergies and current medications were reviewed and updated. Acute Concerns/Problem List: 12/28/2023 Recently seen in the ER for migraine headaches Currently attending [facility] for fitness Has additionally joined [facility] Moved to [place] in February 2023 He tells me he has agoraphobia, PTSD and depression he is followed by psychologist and psychiatrist He is on duloxetine, clonazepam he is inquiring about CBD and THC for the use of this disorder his mental illness and conditions are stable on med regimen TTE in 2020 normal wall motion, no valvular abnormality, EF of about 55% He is also on metformin 500 daily at this time Blood pressure stable His renal ultrasound was unremarkable I did put him on Farxiga which has helped tremendously, as well as renal protection CKD stage IIIb creatinine is stabulizing looks like baseline is 1.4-1.6, As high as 2.1 followed by Monty Jimenez, on Sglt-2, ROMEL: sees him regularly Comprehensive labs are reviewed, 12/2023 Total cholesterol 205, LDL 122, HDL 45, triglycerides 236 Electrolytes renal function LFTs mostly stable Creatinine 1.6, GFR 44 CBC is stable Urinalysis unremarkable Hemoglobin A1c of 6.9* Previously 6.5, 6.1 PSA 4.5 TSH 2.2 Vitamin D 43 UA stable with glucosuria Health maintenance DM Optho : 02/2023 RSV 07/2023 Covid x4 MRNA Flu 2022: 05/2023 shingrix/pneumovax: 2020 TD 2021 *Cscope: 2014 , History of tubular adenoma and polyp needs repeat @ [facility], states he will call Examination Category Sub-Category Detail Notes Category Not es General Examination GENERAL APPEARANCE: in no ac [place] distress, well developed, well nourished HEAD: normocephalic, atrau matic EYES: pupils equal, round, reactive to light and accommodation EARS: normal THROAT: clear NECK/THYROID: neck supple, full ra nge of motion, no cervical lymphadenopathy HEART: no murmurs, regular rate and rhythm, S1, S2 normal LUNGS: clear to auscultatio n bilaterally ABDOMEN: normal, bowel sounds present, soft, nontender, nondistended NEUROLOGIC: nonfocal, motor stre ngth normal upper and lower extremities, sensory exam intact SKIN: no suspicious lesion s, warm and dry EXTREMITIES: no clubbing, cyanosi s, or edema ORAL CAVITY: mucosa moist
--- OUTSIDE RECORDS SUMMARY | 2025-06-12 15:09 | XMS_ITS | Encounter Summary ---
Author Organization [employer] Address [address] [place] [address] [address] [place] [address] Care Team Providers Care Allergy And Immunology Chief Name Role Phone Unavailable Primary Care Provider Unavailabl e Encounter Details Date Type Department Care Team (Latest Contact Info) Description 08/16/2019 Abstract [facility] CONVERSIONS Dental, Provider, DDS Social History Tobacco [...]
--- OUTSIDE RECORDS SUMMARY | 2025-06-12 15:09 | XMS_ITS | Clinical Summary ---
Author Organization [employer] Address [address] [place] [address] [address] [place] [address] Care Team Providers Care Clay Press Operator Name Role Phone Unavailable Primary Care Provider [...]
--- OUTSIDE RECORDS SUMMARY | 2025-06-12 15:09 | XMS_ITS | Clinical Summary ---
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 Mixed hyperlipidemia 01/23/2025 Assessment & Plan (01/23/2025 [...] Encounters Date Type Department Care Team Description 06/01/2025 Results Follow-Up [facility] - [address] [place] [address] Bernadette Beltran NP 05/24/2025 9:30 AM EDT Ancillary Procedure [facility] [address] [place] [phone] Aortic valve stenosis, etiology of cardiac valve [...] EST Routine general medical examination at a [facility] care facility Screening for lipoid disorders Screening for malnutrition Avitaminosis D Screening for thyroid disorder Special screening for malignant neoplasm of prostate HEMOGLOBIN A1C Routine 10/18/2024 8:20 AM EST Routine general medical examination at a [facility] care facility Screening for lipoid disorders Screening for malnutrition Avitaminosis D Screening for thyroid disorder Special screening for malignant neoplasm of prostate LIPID PANEL WITH REFLEX TO DIRECT LDL Routine 10/18/2024 8:20 AM EST Routine general medical examination at a [facility] facility Screening for lipoid disorders Screening for malnutrition Avitaminosis D Screening for thyroid disorder Special screening for malignant neoplasm of prostate from Last 3 Months or Most Recently Relevant to Health Maintenance Results * (ABNORMAL) TRANSTHORACIC ECHOCARDIOGRAM (TTE) COMPLETE (05/24/2025 10:13 AM EDT) Left Atrium Minor Lewis 3.9 cm CV PACS Left Atrium Major Lewis 4.3 cm CV PACS LA Area Sys [...] us Bernadette Beltran NP CV ECHO PROCEDURES Fin al Result * Microalbumin creatinine urine ratio (10/18/2024 8:29 AM EST) Creatinine, Urine 106.0 mg/dL LAB CHEMISTRY METHOD 10/18/2024 11:43 AM [facility] Microalb, Ur 9.4 0.0 - 29.0 mg/L LAB CHEMISTRY METHOD 10/18/2024 11:43 AM [facility] Microalb/Creat Ratio 9 <30 mg/g creat LAB CHEMISTRY METHOD 10/18/2024 11:43 AM [facility] Urine Urine specimen obtained by clean catch procedure / Unknown Non-blood Collection / Unknown 10/18/2024 8:29 AM EST 10/18/2024 10:48 AM EST us Diaz Wills TURN SUPERVISOR LAB URINE ORDERABLES Final Re sult [facility] [address] [place] [address], * (ABNORMAL) Lipid panel with reflex to direct LDL (10/18/2024 8:20 AM EST) Cholesterol 176 0 - 200 mg/dL LAB CHEMISTRY METHOD 10/18/2024 11:17 AM [facility] Triglycerides 252(H) 0 - 150 mg/dL LAB CHEMISTRY METHOD 10/18/2024 11:17 AM [facility] HDL 40 >=40 mg/dL LAB CHEMISTRY METHOD 10/18/2024 11:17 AM [facility] LDL Calculated 86 0 - 100 mg/dL LAB CHEMISTRY METHOD 10/18/2024 11:17 AM [facility] VLDL Cholesterol Domenic 50.4 mg/dL LAB CHEMISTRY METHOD 10/18/2024 11:17 AM [facility] Non HDL Chol. (LDL+VLDL) 136 <145 mg/dL LAB CHEMISTRY METHOD 10/18/2024 11:17 AM [facility] Chol/HDL Ratio 4.4 0.0 - 4.4 LAB CHEMISTRY METHOD 10/18/2024 11:[address] [facility] Blood Venous blood specimen / Unknown Venipuncture / Unknown 10/18/2024 8:20 AM EST 10/18/2024 10:40 AM EST Diaz Wills TURN SUPERVISOR LAB BLOOD ORDERABLES Final Re sult Performing Organization Address [facility]/ZIP Co de Phone Number [facility] [address] [place] [address], [place] [phone] * (ABNORMAL) Hemoglobin A1c (10/18/2024 8:20 AM EST) Hemoglobin A1C 7.8(H) <6.5 % LAB CHEMISTRY METHOD 10/18/2024 8:[address] [facility] Mean Bld Glu Estim. 177 mg/dL LAB CHEMISTRY METHOD 10/18/2024 8:[address] [facility] Blood Venous blood specimen / Unknown Venipuncture / Unknown 10/18/2024 8:20 AM EST 10/18/2024 10:39 AM EST Diaz Wills NP LAB BLOOD ORDERABLES Final Re sult Performing Organization Address [facility] Co de Phone Number [facility] [address] [place] [address], [place] [phone] * (ABNORMAL) Comprehensive metabolic panel (10/18/2024 8:20 AM EST) Sodium 134 133 - 145 mmol/L LAB CHEMISTRY METHOD 10/18/2024 11:[address] [facility] Potassium 4.0 3.5 - 5.5 mmol/L LAB CHEMISTRY METHOD 10/18/2024 11:[address] [facility] Chloride 103 96 - 110 mmol/L LAB CHEMISTRY METHOD 10/18/2024 11:17 AM [facility] CO2 26 21 - 32 mmol/L LAB CHEMISTRY METHOD 10/18/2024 11:17 AM [facility] Anion Gap 5 3 - 11 LAB CHEMISTRY METHOD 10/18/2024 11:17 AM [facility] Glucose 175(H) 70 - 100 mg/dL LAB CHEMISTRY METHOD 10/18/2024 11:17 AM [facility] BUN 31(H) 5 - 25 mg/dL LAB CHEMISTRY METHOD 10/18/2024 11:17 AM [facility] Creatinine 1.65(H) 0.70 - 1.30 mg/dL LAB CHEMISTRY METHOD 10/18/2024 11:17 AM [facility] eGFR 45(L) >=60 mL/min/1. 73m2 LAB CHEMISTRY METHOD 10/18/2024 11:17 AM [facility] Comment:Calculation based on the Chronic Kidney Disease Epidemiology Collaboration (CKD-EPI) equation refit without adjustment for race. BUN/Creatinine Ratio 18.8 LAB CHEMISTRY METHOD 10/18/2024 11:17 AM [facility] Calcium 9.5 8.5 - 10.5 mg/dL LAB CHEMISTRY METHOD 10/18/2024 11:17 AM [facility] AST (SGOT) 16 10 - 42 unit/L LAB CHEMISTRY METHOD 10/18/2024 11:17 AM [facility] ALT (SGPT) 26 10 - 60 unit/L LAB CHEMISTRY METHOD 10/18/2024 11:17 AM [facility] Alkaline Phosphatase 57 42 - 121 unit/L LAB CHEMISTRY METHOD 10/18/2024 11:17 AM [facility] Total Protein 7.4 6.0 - 8.0 g/dL LAB CHEMISTRY METHOD 10/18/2024 11:17 AM [facility] Albumin 3.7 3.2 - 5.0 g/dL LAB CHEMISTRY METHOD 10/18/2024 11:[address] [facility] Total Bilirubin 0.5 0.0 - 1.4 mg/dL LAB CHEMISTRY METHOD 10/18/2024 11:[address] [facility] Blood Venous blood specimen / Unknown Venipuncture / Unknown 10/18/2024 8:20 AM EST 10/18/2024 10:40 AM EST us Diaz Wills TURN SUPERVISOR LAB BLOOD ORDERABLES Final Re sult [facility] [address] [place] [address], from Last 3 Months or Most Recently Relevant to Health Maintenance Insurance [facility] MEDICAID ADVANTAGE Care Teams Crutching Contractor Relationship Specialty Start Date End Date Aly Herzog MD [address] [place] [id number] PCP - General Internal Medicine 10/29/20
--- OUTSIDE RECORDS SUMMARY | 2025-06-12 15:09 | XMS_ITS | Clinical Summary ---
Author Organization [facility] Address [address] [address] Phone Care Team Providers Care Family Assistant Name Role Phone Aly Herzog MD Primary Care Provider [phone] Allergies No known active allergies Medications clonazePAM (KlonoPIN) 0.5 MG tablet TAKE 1 TABLET BY MOUTH IN THE MORNING AND TAKE 2 TABLETS AT BEDTIME 1 Active ketoconazole (NIZORAL) 2 % shampoo 1 Active levothyroxine (SYNTHROID, LEVOTHROID) 75 MCG tablet Take 75 mcg by mouth 1 (one) time each day before breakfast Take on empty stomach 1 Active pravastatin (PRAVACHOL) 40 MG tablet Take 40 mg by mouth 1 (one) time each day Active folic acid (FOLVITE) 1 MG tablet Take 1 mg by mouth 1 (one) time each day Active Cholecalciferol (Vitamin D) 10 MCG/ML liquid Take by mouth Ac tive FLUoxetine (PROzac) 40 MG capsule TAKE 2 CAPSULES BY MOUTH ONCE DAILY IN THE MORNING 3 Active Drysol 20 % external solution APPLY [...] (one) time each day 90 tablet 3 4 Active lisinopril 5 MG tabletIndicatio ns:Chronic kidney disease stage 3B (HCC),Hypertens ion Take 1 tablet (5 mg total) by mouth 1 (one) time each day 90 tablet 3 5 026 Active Flaxseed, Linseed, (Flaxseed Oil) 1400 MG capsule Take 1,400 mg by mouth 1 (one) time each day Active MAGNESIUM PO Take 250 mg by mouth in the morning. Active Ozempic, 0.25 or 0.5 MG/DOSE, 2 MG/3ML solution pen-injector Inject 0.25 mg as directed 1 (one) time per week 5 Active Niacinamide 500 MG capsule 1 capsule in the morning and 1 capsule in the evening. Active Active Problems Problem Noted Date Diagnosed Date Chronic kidney disease stage 3B 04/06/2023 04/06/2023 Hemorrhage of colon due to diverticulosis 202204/06/2023 Acute nontraumatic kidney injury 04/06/2023 Hyperlipidemia 04/06/2023 04/06/2023 Acquired hypothyroidism 04/06/2023 04/06/20 23 Major depression, single episode 04/06/2023 04/06/2023 Hypertension 04/06/2023 04/06/2023 Type 2 diabetes mellitus without complication 04/06/2023 Vitamin D deficiency 04/06/2023 04/06/2023 Type 2 diabetes mellitus wit h diabetic chronic kidney disease 09/04/2021 Encounters Date Type Department Care Team Description 04/10/2025 8:15 AM EDT Office Visit [facility] [address] [address] Carley Vásquez ARNP Chronic kidney disease stage 3B (HCC) (Primary Dx); Hypertension; Vitamin D deficiency, not otherwise specified 03/17/2025 Orders Only [facility] [address] [facility] [address] [place] [address] Carley Vásquez ARNP Chronic kidney disease stage [...] Office Visit [facility] [address] [address] Carley Vásquez ARNP [address] [phone] Health Maintenance Due Date Last Done Comments Pneumococcal Vaccine: 50+ Years (1 of 2 - PCV) 1974 Colorectal Cancer Screening: Annual FOBT 2004 Colorectal Cancer Screening: Colonoscopy 2004 Colorectal Cancer Screening: Sigmoidoscopy 2004 Diabetes: Ophthalmology Exam 08/28/2021 Diabetes: Pedal Pulse Checked 08/28/2021 Diabetes: Sensory Foot Exam 08/28/2021 Diabetes: Visual Foot Exam 08/28/2021 Diabetes: Hemoglobin A1C 01/18/2025 025, 10/18/2024, 03/17/2022 Influenza Vaccine (#1) 2025 Hepatitis B [...] Creatinine, Ur 170.2 Not Estab. mg/dL [facility] Protein, Ur 10.4 Not Estab. mg/dL [facility] Urine Protein/Creatin ine Ratio 61 0 - 200 mg/g creat [facility] Urine specimen (specimen) Urine specimen obtained by clean catch procedure / Unknown 04/07/2025 10:43 AM EDT 04/07/2025 us Carley CARUSO LAB URINE ORDERABLES Final Result [facility] [address] [place] [address] * Urine Albumin / Creatinine Ratio (04/07/2025 10:43 AM EDT) Albumin, Urine 15.1 Not Estab. ug/mL [facility] Albumin/Creatin ine Ratio 9 0 - 29 mg/g creat [facility] Comment: Normal: 0 - 29 Moderately increased: 30 - 300 Severely increased: >300 Urine specimen (specimen) Urine specimen obtained by clean catch procedure / Unknown 04/07/2025 10:43 AM EDT 04/07/2025 Carley Vásquez [facility] LAB URINE ORDERABLES Final Result [facility] [address] [place] [address] * CBC (04/07/2025 10:43 AM EDT) Pathologist [facility] WBC 5.4 3.4 - 10.8 x10E3/uL [facility] RBC 5.22 4.14 - 5.80 x10E6/uL [facility] Hemoglobin 16.0 13.0 - 17.7 g/dL [facility] Hematocrit 48.5 37.5 - 51.0 % [facility] MCV 93 79 - 97 fL [facility] MCH 30.7 26.6 - 33.0 pg [facility] MCHC 33.0 31.5 - 35.7 g/dL [facility] RDW 12.6 11.6 - 15.4 % [facility] Platelets 239 150 - 450 x10E3/uL [facility] Blood specimen (specimen) Venous blood / Unknown 04/07/2025 10:43 AM EDT 04/07/2025 Carley Vásquez [facility] LAB BLOOD ORDERABLES Final Result [facility] [address] [place] [address] * PTH, intact (04/07/2025 10:43 AM EDT) Pathologist [facility] PTH 32 15 - 65 pg/mL [facility] Blood specimen (specimen) Venous blood / Unknown 04/07/2025 10:43 AM EDT 04/07/2025 Carley Vásquez [facility] LAB BLOOD ORDERABLES Final Result Performing Organization Address City/[facility]/ZIP Co de Phone Number [facility] [address] [place] [address] * (ABNORMAL) Renal function panel (04/07/2025 10:43 AM EDT) Glucose 142(H) 70 - 99 mg/dL [facility] BUN 20 8 - 27 mg/dL [facility] Creatinine 1.59(H) 0.76 - 1.27 mg/dL [facility] eGFR CKD-EPI CR 2020 47(L) >59 mL/min/1.7 3 [facility] BUN/Creatinine Ratio 13 10 - 24 [facility] Sodium 139 134 - 144 mmol/L [facility] Potassium 4.6 3.5 - 5.2 mmol/L [facility] Chloride 99 96 - 106 mmol/L [facility] Bicarbonate (CO2) 23 20 - 29 mmol/L [facility] Calcium 9.5 8.6 - 10.2 mg/dL [facility] Albumin 4.6 3.9 - 4.9 g/dL [facility] Phosphorus 3.6 2.8 - 4.1 mg/dL [facility] Blood specimen (specimen) Venous blood / Unknown 04/07/2025 10:43 AM EDT 04/07/2025 Carley Vásquez [facility] BLOOD ORDERABLES Final Result [facility] [address] [place] [address] * (ABNORMAL) Hemoglobin A1c (03/17/2022 10:50 AM EDT) Hemoglobin A1C 6.3(H) (4.0-5.6) % [facility] Comment: MONITORING: In known diabetic patients, hemoglobin A1c targets should be discussed with health care provider. DIAGNOSTIC USE: The [place] Diabetes Association (ADA) and the World Health [...] Supplement 1 Testing performed or reported by [facility], a Service of [facility], [address] [place] [address] Sterling Ruiz MD, Yarn Examiner [employer] NAS# [id number] 03/17/2022 10:5 0 AM EDT 03/17/2022 10:53 AM EDT us Al Jimenez MD LAB BLOOD ORDERABLES Final Re sult [facility] from Last 3 Months or Most Recently Relevant to Health Maintenance Insurance Care Teams Family Assistant Relationship Specialty Start Date End Date Aly Herzog MD [address] [place] [id number] PCP - General Internal Medicine 06/13/21
--- OUTSIDE RECORDS SUMMARY | 2025-06-12 15:10 | XMS_ITS | Clinical Summary ---
Author Organization [facility] Address [address] [address] Phone Care Team Providers Care Dumping Machine Operator Name Role Phone Aly Herzog MD [...] Not on file Insurance 120 [facility] [facility] [employer] [place] [employer] H[place] REPLACEMENT Member Subscriber Plan / Payer (Ef fective 2022-Present) Name:Adrian Mancilla Relation to Subscriber:Self Name:Adrian Mancilla Payer ID:Not on file Type:Medicare Address: [place] [id number] [employer] [place] [employer] H[place] REPLACEMENT [employer] [place] [employer] [place] REPLACEMENT [employer] [place] [employer] [place] REPLACEMENT [employer] [place] HMO REPLACEMENT [facility] MEDICARE HMO REPLACEMENT [facility] MEDICARE HMO REPLACEMENT [facility] MEDICARE HMO REPLACEMENT [facility] MEDICARE HMO REPLACEMENT Care Teams Dumping Machine Operator Relationship Specialty Start Date End Date Aly Herzog MD [address] [facility] [address] [place] [address] PCP - General Internal Medicine 05/20/22 Additional Source Comments The information contained in this document represents components of the legal health record. It is not the complete legal health record.[facility]
--- OUTSIDE RECORDS SUMMARY | 2025-06-12 15:10 | XMS_ITS | Patient Health Record ---
Author Organization [facility] [address] Address [address] [place] [address] Care Team Providers Care Materials Scheduler Name Role Phone CHINO HERBERT Unavailable [phone] DEBORAHMAJOR OROZCO Unavailable [phone] Allergies No Known Allergies Results Component Value Reference Range Notes PPC Hemoglobin A1C Reviewed date:05/19/2025 09:06:27 AM Interpretation:6.7 Performing Lab: Notes/Report: 6.7 [facility] Hemoglobin A1C Reviewed date:02/16/2025 09:25:52 AM Interpretation:7.3 Performing Lab: Notes/Report: 7.3 URINALYSIS WITH REFLEX MICRO SCOPIC Reviewed date:10/18/2024 11:16:46 AM Interpretation: Performing Lab: Notes/Report: Specific [place] Urine 1.028 1.003-1.030 pH, Urine 5.0 5.0-8.0 pH Leukocytes, Urine Negative Negative Nitrite, Urine Negative Negative Protein, Urine Negative <=Trace mg/dL Glucose, Urine >=1000 Negative mg/dL Ketones, Urine Negative Negative mg/dL Urobilinogen, Urine 0.2 0.2-1.0 mg/dL Bilirubin, Urine Negative Negative Blood, Urine Negative Negative PROSTATE SPECIFIC ANTIGEN SC REEN Reviewed date:10/18/2024 11:55:01 AM Interpretation: Performing Lab: Notes/Report: The Siemens Advia Centaur Chemiluminescent Immunoassay is used. Results obtained with different assay methods or kits cannot be used interchangeably. Results cannot be interpreted as absolute evidence of the presence or absence of malignant disease. PSA 4.22 0.00-4.00 ng/mL MICROALBUMIN CREATININE URIN E RATIO Reviewed date:10/18/2024 11:55:01 AM Interpretation: Performing Lab: Notes/Report: Creatinine, Urine 106.0 Microalb, Ur 9.4 0.0-29.0 mg/L Microalb/Creat Ratio 9 <30 mg/g creat COMPREHENSIVE METABOLIC PANE L Reviewed date:10/18/2024 11:55:37 [...] K/mcL Immature Granulocytes Absolute 0.03 0.00-0.03 K/mcL HEMOGLOBIN A1C Reviewed date:10/19/2024 07:50:30 AM Interpretation: Performing Lab: Notes/Report: Hemoglobin A1C 7.8 <6.5 % Mean Bld Glu Estim. 177 Reason For Referral No Information Medications Medication [...] 025 Active Hydrocortisone 1 % 1 application Pot Tender ally Once a day Active Sildenafil Citrate [...] day Active Fluorouracil 5 % 1 application Pot Tender ally Twice a day Active Vitamin D [...] Status W/U Status Risk Notes Problem Hypothyroidism (62063657) Other specified hypothyroidism (E03.8) Active confirmed Problem Vitamin D deficiency (32217309) Vitamin D deficiency, unspecified (E55.9) Active confirmed Problem Hyperlipidemia (37132579) Hyperlipidemia, unspecified (E78.5) Active confirmed Problem Essential hypertension (49608360) Essential (primary) hypertension (I10) Active confirmed Problem Hemorrhage of colon due to diverticulosis (375329175892309) Diverticulosis of intestine, part unspecified, without perforation or abscess with bleeding (K57.91) Active confirmed Problem Adult health examination (646993540) Encounter for general adult medical examination without abnormal findings (Z00.00) Active confirmed Problem Lipid screening (195607535) Encounter for screening for lipoid disorders (Z13.220) Active confirmed Problem Colon cancer screening (881589673) Colon cancer screening (Z12.11) Active confirmed Problem Acquired hypothyroidism (063922596) Acquired hypothyroidism (E03.9) Active confirmed Problem Depressive disorder (disorder) (74798442) Depression, unspecified depression type (F32.9) Active confirmed Problem Acute kidney injury (96331475) Acute kidney injury (N17.9) Active confirmed Problem Vitamin D deficiency (27835362) Vitamin D deficiency (E55.9) Active confirmed Problem Accelerated essential hypertension (96212872) Accelerated essential hypertension (I10) Active confirmed Problem Diabetes mellitus screening (821886642) Diabetes mellitus screening (Z13.1) Active confirmed Problem Type II diabetes mellitus without complication (761800919) Type 2 diabetes mellitus without complication, without long-term current use of insulin (E11.9) Active confirmed Problem Chronic kidney disease stage 3B (disorder) (431945158) Stage 3b chronic kidney disease (N18.32) Active confirmed Problem Screening for osteoporosis (923346288) Osteoporosis screening (Z13.820) Active confirmed Problem Endocrine/metabol ic screening (596853814) Encounter for screening for endocrine disorder (Z13.29) Active confirmed Problem Abnormal metabolic state due to diabetes mellitus (545530382) Abnormal metabolic state due to diabetes mellitus (E11.9) Active confirmed Problem Screening for malignant neoplasm of prostate (737713233) Encounter for prostate cancer screening (Z12.5) Active confirmed Vital Signs Heart Rate 64 /min 05/19/2025 Oximetry 99 % 05/19/2025 Blood pressure diastolic 70 mm Hg 05/19/2025 Height 70 in 05/19/2025 Blood pressure systolic 120 mm Hg 05/19/2025 Weight 190 lbs 05/19/2025 BMI 27.26 kg/m2 05/19/2025 Encounters Encounter Location Date Provider Diagnosis [facility] [address] [address] 06/20/2024 MAJOR SARABIA Essential (primary) hypertension I10 ; Type 2 diabetes mellitus without complication, without long-term current use of insulin E11.9 ; Acquired hypothyroidism E03.9 ; Depression, unspecified depression type F32.9 ; Stage 3b chronic kidney disease N18.32 and Hyperlipidemia, unspecified E78.5 [facility] [address] [address] 10/19/2024 MAJOR SARABIA Essential (primary) hypertension I10 ; Type 2 diabetes mellitus without complication, without long-term current use of insulin E11.9 ; Acquired hypothyroidism E03.9 ; Depression, unspecified depression type F32.9 ; Stage 3b chronic kidney disease N18.32 and Hyperlipidemia, unspecified E78.5 [facility] [address] [address] 02/16/2025 MAJOR SARABIA Annual physical exam Z00.00 [...] abnormal findings Z01.30 [facility] [address] [address] 05/19/2025 MAJOR BORHOT Essential (primary) hypertension I10 ; Type 2 diabetes mellitus without complication, without long-term current use of insulin E11.9 ; Stage 3b chronic kidney disease N18.32 ; Acquired hypothyroidism E03.9 ; Depression, unspecified depression type F32.9 and Hyperlipidemia, unspecified E78.[address] [facility] [address] [place] [address] 03/08/2025 MAJOR BORHOT [facility] [address] 03/21/2025 MAJOR BORHOT Type 2 diabetes jaylin itus without complication, without long-term current use of insulin E11.9 [facility] [address] 03/22/2025 MAJOR BORHOT Type 2 diabetes jaylin itus without complication, without long-term current use of insulin E11.9 [facility] [address] 03/23/2025 MAJOR BORHOT Type 2 diabetes jaylin itus without complication, without long-term current use of insulin E11.[address] [facility] [address] [place] [address] 03/27/2025 MAJOR BORHOT Type 2 diabetes jaylin itus without complication, without long-term current use of insulin E11.[address] [facility] [address] [place] [address] 03/29/2025 MAJOR BORHOT Type 2 diabetes jaylin itus without complication, without long-term current use of insulin E11.9 [facility] [address] [address] 06/19/2024 CHINO HERBERT [facility] [address] [place] [address] 03/23/2025 MAJOR SARABIA Type 2 diabetes jaylin itus without complication, without long-term current use of insulin E11.9 Assessments Encounter Date Diagnosis (ICD Code) Assessment Notes Treatment Notes Treatment Clinical Notes Section Notes 06/20/2024 Essential (primary) hypertension (ICD-10 - I10) Patient Presents for [facility] Acute Concerns/Problem List: 06/20/2024 Chronic conditions stable as below _update labs Hypertension Stable on ROMEL CKD IIIB, Creatinine 1.4-1.6, as high as 2.1, As well as metformin, renal ultrasound stable continue to trend. He is seeing a plush dresser who keeps track of his kidneys on [...] high risk for cardiovascular events including stroke, [place] As well as complications from infections, therefore immunizations are important The best way to monitor kidney function is through blood and urine test You should have these test done periodically If it is best if you complete the test a week or 2 before your visit with your primary care or plush dresser So that the most recent data can [...] software and direct typing Please excuse inadvertent polarity tester or typing errors, or uncorrected word substitutions Although every attempt has been made by the provider to proofread this document, occasional misspellings and typographical errors may still be present Due to the previous pandemic, and the use of personal protective equipment (PPE) This may decrease voice recognition accuracy Inadvertent polarity tester errors may occur 10/19/2024 Essential (primary) hypertension (ICD-10 - I10) Acute Concerns/Problem List: 10/19/2024 Chronic conditions stable as below Continue blood pressure management Hypertension Stable on ROMEL, Lisinopril monotherapy 5 mg CKD IIIB, Creatinine 1.4-1.6, as high as 2.1, continue to trend. He is seeing a plush dresser who keeps track of his kidneys on [...] high risk for cardiovascular events including stroke, [place] As well as complications from infections, therefore immunizations are important The best way to monitor kidney function is through blood and urine test You should have these test done periodically If it is best if you complete the test a week or 2 before your visit with your primary care or plush dresser So that the most recent data can [...] software and direct typing Please excuse inadvertent polarity tester or typing errors, or uncorrected word substitutions Although every attempt has been made by the provider to proofread this document, occasional misspellings and typographical errors may still be present Due to the previous pandemic, and the use of personal protective equipment (PPE) This may decrease voice recognition accuracy Inadvertent polarity tester errors may occur 02/16/2025 Encounter for screening [...] high risk for cardiovascular events including stroke, [place] As well as complications from infections, therefore immunizations are important The best way to monitor kidney function is through blood and urine test You should have these test done periodically If it is best if you complete the test a week or 2 before your visit with your primary care or plush dresser So that the most recent data can [...] software and direct typing Please excuse inadvertent polarity tester or typing errors, or uncorrected word substitutions Although every attempt has been made by the provider to proofread this document, occasional misspellings and typographical errors may still be present Due to the previous pandemic, and the use of personal protective equipment (PPE) This may decrease voice recognition accuracy Inadvertent polarity tester errors may occur 02/16/2025 Annual physical exam [...] high risk for cardiovascular events including stroke, [place] As well as complications from infections, therefore immunizations are important The best way to monitor kidney function is through blood and urine test You should have these test done periodically If it is best if you complete the test a week or 2 before your visit with your primary care or plush dresser So that the most recent data can [...] software and direct typing Please excuse inadvertent polarity tester or typing errors, or uncorrected word substitutions Although every attempt has been made by the provider to proofread this document, occasional misspellings and typographical errors may still be present Due to the previous pandemic, and the use of personal protective equipment (PPE) This may decrease voice recognition accuracy Inadvertent polarity tester errors may occur 03/21/2025 Type 2 diabetes [...] software and direct typing Please excuse inadvertent polarity tester or typing errors, or uncorrected word substitutions Although every attempt has been made by the provider to proofread this document, occasional misspellings and typographical errors may still be present Due to the previous pandemic, and the use of personal protective equipment (PPE) This may decrease voice recognition accuracy Inadvertent polarity tester errors may occur 05/19/2025 Type 2 diabetes [...] software and direct typing Please excuse inadvertent polarity tester or typing errors, or uncorrected word substitutions Although every attempt has been made by the provider to proofread this document, occasional misspellings and typographical errors may still be present Due to the previous pandemic, and the use of personal protective equipment (PPE) This may decrease voice recognition accuracy Inadvertent polarity tester errors may occur 05/19/2025 Stage 3b chronic [...] software and direct typing Please excuse inadvertent polarity tester or typing errors, or uncorrected word substitutions Although every attempt has been made by the provider to proofread this document, occasional misspellings and typographical errors may still be present Due to the previous pandemic, and the use of personal protective equipment (PPE) This may decrease voice recognition accuracy Inadvertent polarity tester errors may occur 02/16/2025 Encounter for screening [...] high risk for cardiovascular events including stroke, [place] As well as complications from infections, therefore immunizations are important The best way to monitor kidney function is through blood and urine test You should have these test done periodically If it is best if you complete the test a week or 2 before your visit with your primary care or plush dresser So that the most recent data can [...] software and direct typing Please excuse inadvertent polarity tester or typing errors, or uncorrected word substitutions Although every attempt has been made by the provider to proofread this document, occasional misspellings and typographical errors may still be present Due to the previous pandemic, and the use of personal protective equipment (PPE) This may decrease voice recognition accuracy Inadvertent polarity tester errors may occur 06/20/2024 Type 2 diabetes mellitus without complication, without long-term current use of insulin (ICD-10 - E11.9) Patient Presents for [facility] Acute Concerns/Problem List: 06/20/2024 Chronic conditions stable as below _update labs Hypertension Stable on ROMEL CKD IIIB, Creatinine 1.4-1.6, as high as 2.1, As well as metformin, renal ultrasound stable continue to trend. He is seeing a plush dresser who keeps track of his kidneys on [...] high risk for cardiovascular events including stroke, [place] As well as complications from infections, therefore immunizations are important The best way to monitor kidney function is through blood and urine test You should have these test done periodically If it is best if you complete the test a week or 2 before your visit with your primary care or plush dresser So that the most recent data can [...] software and direct typing Please excuse inadvertent polarity tester or typing errors, or uncorrected word substitutions Although every attempt has been made by the provider to proofread this document, occasional misspellings and typographical errors may still be present Due to the previous pandemic, and the use of personal protective equipment (PPE) This may decrease voice recognition accuracy Inadvertent polarity tester errors may occur 10/19/2024 Type 2 diabetes mellitus without complication, without long-term current use of insulin (ICD-10 - E11.9) Acute Concerns/Problem List: 10/19/2024 Chronic conditions stable as below Continue blood pressure management Hypertension Stable on ROMEL, Lisinopril monotherapy 5 mg CKD IIIB, Creatinine 1.4-1.6, as high as 2.1, continue to trend. He is seeing a plush dresser who keeps track of his kidneys on [...] high risk for cardiovascular events including stroke, [place] As well as complications from infections, therefore immunizations are important The best way to monitor kidney function is through blood and urine test You should have these test done periodically If it is best if you complete the test a week or 2 before your visit with your primary care or plush dresser So that the most recent data can [...] software and direct typing Please excuse inadvertent polarity tester or typing errors, or uncorrected word substitutions Although every attempt has been made by the provider to proofread this document, occasional misspellings and typographical errors may still be present Due to the previous pandemic, and the use of personal protective equipment (PPE) This may decrease voice recognition accuracy Inadvertent polarity tester errors may occur 06/20/2024 Acquired hypothyroidism (ICD-10 - E03.9) Patient Presents for [facility] Acute Concerns/Problem List: 06/20/2024 Chronic conditions stable as below _update labs Hypertension Stable on ROMEL CKD IIIB, Creatinine 1.4-1.6, as high as 2.1, As well as metformin, renal ultrasound stable continue to trend. He is seeing a plush dresser who keeps track of his kidneys on [...] high risk for cardiovascular events including stroke, [place] As well as complications from infections, therefore immunizations are important The best way to monitor kidney function is through blood and urine test You should have these test done periodically If it is best if you complete the test a week or 2 before your visit with your primary care or plush dresser So that the most recent data can [...] software and direct typing Please excuse inadvertent polarity tester or typing errors, or uncorrected word substitutions Although every attempt has been made by the provider to proofread this document, occasional misspellings and typographical errors may still be present Due to the previous pandemic, and the use of personal protective equipment (PPE) This may decrease voice recognition accuracy Inadvertent polarity tester errors may occur 10/19/2024 Acquired hypothyroidism (ICD-10 - E03.9) Acute Concerns/Problem List: 10/19/2024 Chronic conditions stable as below Continue blood pressure management Hypertension Stable on ROMEL, Lisinopril monotherapy 5 mg CKD IIIB, Creatinine 1.4-1.6, as high as 2.1, continue to trend. He is seeing a plush dresser who keeps track of his kidneys on [...] high risk for cardiovascular events including stroke, [place] As well as complications from infections, therefore immunizations are important The best way to monitor kidney function is through blood and urine test You should have these test done periodically If it is best if you complete the test a week or 2 before your visit with your primary care or plush dresser So that the most recent data can [...] software and direct typing Please excuse inadvertent polarity tester or typing errors, or uncorrected word substitutions Although every attempt has been made by the provider to proofread this document, occasional misspellings and typographical errors may still be present Due to the previous pandemic, and the use of personal protective equipment (PPE) This may decrease voice recognition accuracy Inadvertent polarity tester errors may occur 02/16/2025 Advanced directives, counseling/discuss [...] high risk for cardiovascular events including stroke, [place] As well as complications from infections, therefore immunizations are important The best way to monitor kidney function is through blood and urine test You should have these test done periodically If it is best if you complete the test a week or 2 before your visit with your primary care or plush dresser So that the most recent data can [...] software and direct typing Please excuse inadvertent polarity tester or typing errors, or uncorrected word substitutions Although every attempt has been made by the provider to proofread this document, occasional misspellings and typographical errors may still be present Due to the previous pandemic, and the use of personal protective equipment (PPE) This may decrease voice recognition accuracy Inadvertent polarity tester errors may occur 05/19/2025 Acquired hypothyroidism (ICD-10 [...] software and direct typing Please excuse inadvertent polarity tester or typing errors, or uncorrected word substitutions Although every attempt has been made by the provider to proofread this document, occasional misspellings and typographical errors may still be present Due to the previous pandemic, and the use of personal protective equipment (PPE) This may decrease voice recognition accuracy Inadvertent polarity tester errors may occur 05/19/2025 Depression, unspecified depression [...] software and direct typing Please excuse inadvertent polarity tester or typing errors, or uncorrected word substitutions Although every attempt has been made by the provider to proofread this document, occasional misspellings and typographical errors may still be present Due to the previous pandemic, and the use of personal protective equipment (PPE) This may decrease voice recognition accuracy Inadvertent polarity tester errors may occur 10/19/2024 Depression, unspecified depression type (ICD-10 - F32.9) Acute Concerns/Problem List: 10/19/2024 Chronic conditions stable as below Continue blood pressure management Hypertension Stable on ROMEL, Lisinopril monotherapy 5 mg CKD IIIB, Creatinine 1.4-1.6, as high as 2.1, continue to trend. He is seeing a plush dresser who keeps track of his kidneys on [...] high risk for cardiovascular events including stroke, [place] As well as complications from infections, therefore immunizations are important The best way to monitor kidney function is through blood and urine test You should have these test done periodically If it is best if you complete the test a week or 2 before your visit with your primary care or plush dresser So that the most recent data can [...] software and direct typing Please excuse inadvertent polarity tester or typing errors, or uncorrected word substitutions Although every attempt has been made by the provider to proofread this document, occasional misspellings and typographical errors may still be present Due to the previous pandemic, and the use of personal protective equipment (PPE) This may decrease voice recognition accuracy Inadvertent polarity tester errors may occur 02/16/2025 Essential (primary) hypertension [...] high risk for cardiovascular events including stroke, [place] As well as complications from infections, therefore immunizations are important The best way to monitor kidney function is through blood and urine test You should have these test done periodically If it is best if you complete the test a week or 2 before your visit with your primary care or plush dresser So that the most recent data can [...] software and direct typing Please excuse inadvertent polarity tester or typing errors, or uncorrected word substitutions Although every attempt has been made by the provider to proofread this document, occasional misspellings and typographical errors may still be present Due to the previous pandemic, and the use of personal protective equipment (PPE) This may decrease voice recognition accuracy Inadvertent polarity tester errors may occur 06/20/2024 Depression, unspecified depression type (ICD-10 - F32.9) Patient Presents for [facility] Acute Concerns/Problem List: 06/20/2024 Chronic conditions stable as below _update labs Hypertension Stable on ROMEL CKD IIIB, Creatinine 1.4-1.6, as high as 2.1, As well as metformin, renal ultrasound stable continue to trend. He is seeing a plush dresser who keeps track of his kidneys on [...] high risk for cardiovascular events including stroke, [place] As well as complications from infections, therefore immunizations are important The best way to monitor kidney function is through blood and urine test You should have these test done periodically If it is best if you complete the test a week or 2 before your visit with your primary care or plush dresser So that the most recent data can [...] software and direct typing Please excuse inadvertent polarity tester or typing errors, or uncorrected word substitutions Although every attempt has been made by the provider to proofread this document, occasional misspellings and typographical errors may still be present Due to the previous pandemic, and the use of personal protective equipment (PPE) This may decrease voice recognition accuracy Inadvertent polarity tester errors may occur 10/19/2024 Stage 3b chronic kidney disease (ICD-10 - N18.32) Acute Concerns/Problem List: 10/19/2024 Chronic conditions stable as below Continue blood pressure management Hypertension Stable on ROMEL, Lisinopril monotherapy 5 mg CKD IIIB, Creatinine 1.4-1.6, as high as 2.1, continue to trend. He is seeing a plush dresser who keeps track of his kidneys on [...] high risk for cardiovascular events including stroke, [place] As well as complications from infections, therefore immunizations are important The best way to monitor kidney function is through blood and urine test You should have these test done periodically If it is best if you complete the test a week or 2 before your visit with your primary care or plush dresser So that the most recent data can [...] software and direct typing Please excuse inadvertent polarity tester or typing errors, or uncorrected word substitutions Although every attempt has been made by the provider to proofread this document, occasional misspellings and typographical errors may still be present Due to the previous pandemic, and the use of personal protective equipment (PPE) This may decrease voice recognition accuracy Inadvertent polarity tester errors may occur 06/20/2024 Stage 3b chronic kidney disease (ICD-10 - N18.32) Patient Presents for [facility] Acute Concerns/Problem List: 06/20/2024 Chronic conditions stable as below _update labs Hypertension Stable on ROMEL CKD IIIB, Creatinine 1.4-1.6, as high as 2.1, As well as metformin, renal ultrasound stable continue to trend. He is seeing a plush dresser who keeps track of his kidneys on [...] high risk for cardiovascular events including stroke, [place] As well as complications from infections, therefore immunizations are important The best way to monitor kidney function is through blood and urine test You should have these test done periodically If it is best if you complete the test a week or 2 before your visit with your primary care or plush dresser So that the most recent data can [...] software and direct typing Please excuse inadvertent polarity tester or typing errors, or uncorrected word substitutions Although every attempt has been made by the provider to proofread this document, occasional misspellings and typographical errors may still be present Due to the previous pandemic, and the use of personal protective equipment (PPE) This may decrease voice recognition accuracy Inadvertent polarity tester errors may occur 05/19/2025 Hyperlipidemia, unspecified (ICD-10 [...] software and direct typing Please excuse inadvertent polarity tester or typing errors, or uncorrected word substitutions Although every attempt has been made by the provider to proofread this document, occasional misspellings and typographical errors may still be present Due to the previous pandemic, and the use of personal protective equipment (PPE) This may decrease voice recognition accuracy Inadvertent polarity tester errors may occur 02/16/2025 Type 2 diabetes [...] high risk for cardiovascular events including stroke, [place] As well as complications from infections, therefore immunizations are important The best way to monitor kidney function is through blood and urine test You should have these test done periodically If it is best if you complete the test a week or 2 before your visit with your primary care or plush dresser So that the most recent data can [...] software and direct typing Please excuse inadvertent polarity tester or typing errors, or uncorrected word substitutions Although every attempt has been made by the provider to proofread this document, occasional misspellings and typographical errors may still be present Due to the previous pandemic, and the use of personal protective equipment (PPE) This may decrease voice recognition accuracy Inadvertent polarity tester errors may occur 02/16/2025 Acquired hypothyroidism (ICD-10 [...] high risk for cardiovascular events including stroke, [place] As well as complications from infections, therefore immunizations are important The best way to monitor kidney function is through blood and urine test You should have these test done periodically If it is best if you complete the test a week or 2 before your visit with your primary care or plush dresser So that the most recent data can [...] software and direct typing Please excuse inadvertent polarity tester or typing errors, or uncorrected word substitutions Although every attempt has been made by the provider to proofread this document, occasional misspellings and typographical errors may still be present Due to the previous pandemic, and the use of personal protective equipment (PPE) This may decrease voice recognition accuracy Inadvertent polarity tester errors may occur 10/19/2024 Hyperlipidemia, unspecified (ICD-10 - E78.5) Acute Concerns/Problem List: 10/19/2024 Chronic conditions stable as below Continue blood pressure management Hypertension Stable on ROMEL, Lisinopril monotherapy 5 mg CKD IIIB, Creatinine 1.4-1.6, as high as 2.1, continue to trend. He is seeing a plush dresser who keeps track of his kidneys on [...] high risk for cardiovascular events including stroke, [place] As well as complications from infections, therefore immunizations are important The best way to monitor kidney function is through blood and urine test You should have these test done periodically If it is best if you complete the test a week or 2 before your visit with your primary care or plush dresser So that the most recent data can [...] software and direct typing Please excuse inadvertent polarity tester or typing errors, or uncorrected word substitutions Although every attempt has been made by the provider to proofread this document, occasional misspellings and typographical errors may still be present Due to the previous pandemic, and the use of personal protective equipment (PPE) This may decrease voice recognition accuracy Inadvertent polarity tester errors may occur 06/20/2024 Hyperlipidemia, unspecified (ICD-10 - E78.5) Patient Presents for [facility] Acute Concerns/Problem List: 06/20/2024 Chronic conditions stable as below _update labs Hypertension Stable on ROMEL CKD IIIB, Creatinine 1.4-1.6, as high as 2.1, As well as metformin, renal ultrasound stable continue to trend. He is seeing a plush dresser who keeps track of his kidneys on [...] high risk for cardiovascular events including stroke, [place] As well as complications from infections, therefore immunizations are important The best way to monitor kidney function is through blood and urine test You should have these test done periodically If it is best if you complete the test a week or 2 before your visit with your primary care or plush dresser So that the most recent data can [...] software and direct typing Please excuse inadvertent polarity tester or typing errors, or uncorrected word substitutions Although every attempt has been made by the provider to proofread this document, occasional misspellings and typographical errors may still be present Due to the previous pandemic, and the use of personal protective equipment (PPE) This may decrease voice recognition accuracy Inadvertent polarity tester errors may occur 02/16/2025 Depression, unspecified depression [...] high risk for cardiovascular events including stroke, [place] As well as complications from infections, therefore immunizations are important The best way to monitor kidney function is through blood and urine test You should have these test done periodically If it is best if you complete the test a week or 2 before your visit with your primary care or plush dresser So that the most recent data can [...] software and direct typing Please excuse inadvertent polarity tester or typing errors, or uncorrected word substitutions Although every attempt has been made by the provider to proofread this document, occasional misspellings and typographical errors may still be present Due to the previous pandemic, and the use of personal protective equipment (PPE) This may decrease voice recognition accuracy Inadvertent polarity tester errors may occur 02/16/2025 Stage 3b chronic [...] high risk for cardiovascular events including stroke, [place] As well as complications from infections, therefore immunizations are important The best way to monitor kidney function is through blood and urine test You should have these test done periodically If it is best if you complete the test a week or 2 before your visit with your primary care or plush dresser So that the most recent data can [...] software and direct typing Please excuse inadvertent polarity tester or typing errors, or uncorrected word substitutions Although every attempt has been made by the provider to proofread this document, occasional misspellings and typographical errors may still be present Due to the previous pandemic, and the use of personal protective equipment (PPE) This may decrease voice recognition accuracy Inadvertent polarity tester errors may occur 02/16/2025 Hyperlipidemia, unspecified (ICD-10 [...] high risk for cardiovascular events including stroke, [place] As well as complications from infections, therefore immunizations are important The best way to monitor kidney function is through blood and urine test You should have these test done periodically If it is best if you complete the test a week or 2 before your visit with your primary care or plush dresser So that the most recent data can [...] software and direct typing Please excuse inadvertent polarity tester or typing errors, or uncorrected word substitutions Although every attempt has been made by the provider to proofread this document, occasional misspellings and typographical errors may still be present Due to the previous pandemic, and the use of personal protective equipment (PPE) This may decrease voice recognition accuracy Inadvertent polarity tester errors may occur 02/16/2025 Encounter for examination [...] high risk for cardiovascular events including stroke, [place] As well as complications from infections, therefore immunizations are important The best way to monitor kidney function is through blood and urine test You should have these test done periodically If it is best if you complete the test a week or 2 before your visit with your primary care or plush dresser So that the most recent data can [...] software and direct typing Please excuse inadvertent polarity tester or typing errors, or uncorrected word substitutions Although every attempt has been made by the provider to proofread this document, occasional misspellings and typographical errors may still be present Due to the previous pandemic, and the use of personal protective equipment (PPE) This may decrease voice recognition accuracy Inadvertent polarity tester errors may occur Plan Of Treatment Pending Test Test Name Order Date Hemoglobin A1c 12/13/2020 Basic Metabolic Panel (8) 12/13/2020 Bone Density 12/25/2022 25OH VITAMIN D 08/04/2023 25OH VITAMIN D 09/06/2021 25OH VITAMIN D 12/13/2020 BASIC METABOLIC PANEL 11/17/2022 CBC (COMPLETE BLOOD COUNT) 12/25/2022 CBC (COMPLETE BLOOD COUNT) 09/06/2021 CBC (COMPLETE BLOOD COUNT) 06/11/2020 CBC (COMPLETE BLOOD COUNT) 11/08/2020 CBC (COMPLETE BLOOD COUNT) 08/04/2023 COMPREHENSIVE METABOLIC PANEL 11/08/2020 COMPREHENSIVE METABOLIC PANEL 06/11/2020 COMPREHENSIVE METABOLIC PANEL 09/06/2021 COMPREHENSIVE METABOLIC PANEL 12/25/2022 COMPREHENSIVE METABOLIC PANEL 08/04/2023 HEMOGLOBIN A1C 08/04/2023 HEMOGLOBIN A1C 09/06/2021 HEMOGLOBIN A1C 12/25/2022 HEMOGLOBIN A1C 06/11/2020 HEMOGLOBIN A1C 11/08/2020 LIPID PANEL 06/11/2020 LIPID PANEL 09/06/2021 LIPID PANEL 08/04/2023 LIPID PANEL 12/25/2022 MICROALBUMIN, URINE 06/06/2021 PSA, SCREEN 09/06/2021 PSA, [...] Provider Name:MAJOR SARABIA, 08/23/2025 09:00:00 AM, [address] [facility], [address], [place], [address], Insurance Providers Payer Name Payer Address Payer Phone Subscriber Number Group Number Insured Name Patient Relationship to Insured Coverage Start Date Coverage End Date [facility] [address] [place] [address] [id number] LAMBERTO MELENDREZ Self - patient is the insured Medical (General) History Medical History History ICD Code hypertension hyperlipidemia diabetes mellitus anxiety depression
== END 2025-06-12 11:44 | disposition home or self-care (01) ==
LOC: HO.HMGAL 11:44
PROVIDERS: PCP Internal Medicine; Visit Provider Registered Nurse Emergency
DX: J30.89 Other allergic rhinitis (principal)
CPT/HCPCS: 95117; 95165

== ENCOUNTER 2025-07-03 11:45 | Outpatient (AMB) | payer MEDICARE, SELFPAY | END 2025-07-03 11:46 | disposition home or self-care (01) | LOC: HO.HMGAL 11:45 | PROVIDERS: PCP Internal Medicine; Visit Provider Registered Nurse Emergency | DX: J30.89 Other allergic rhinitis (principal) | CPT/HCPCS: 95117; 95165 ==

== ENCOUNTER 2025-07-17 11:37 | Outpatient (AMB) | payer MEDICARE, SELFPAY ==
--- OUTSIDE RECORDS SUMMARY | 2025-07-17 15:17 | XMS_ITS | Clinical Summary ---
Author Organization [employer] Address [address] [place] [address] [address] [place] [address] Care Team Providers Care Barrel Dedenting Machine Operator Name Role Phone Unavailable Primary Care [...] of 2) 2005 COVID-19 Vaccine (1 - 2024-2 6 season) 2025 Influenza Vaccine (#1) 2025 RSV [...]
--- OUTSIDE RECORDS SUMMARY | 2025-07-17 15:17 | XMS_ITS | Encounter Summary ---
Author Organization [employer] Address [address] [place] [address] [address] [place] [address] Care Team Providers Care Computer Technical Specialist Name Role Phone Unavailable Primary Care Provider Unavailabl e Encounter Details Date Type Department Care Team (Latest Contact Info) Description 08/16/2019 Abstract [facility] Dental, Provider, DDS Social History Tobacco [...]
--- OUTSIDE RECORDS SUMMARY | 2025-07-17 15:18 | XMS_ITS | Clinical Summary ---
Author Organization [facility] Address [address] [address] Phone Care Team Providers Care Television Schedule Coordinator Name Role Phone Aly Herzog MD Primary Care Provider Allergies No known active allergies Medications clonazePAM [...] wit h diabetic chronic kidney disease 09/04/2021 Family History Medical History Relation Comments Heart [...] Rate - - Oxygen Saturation 98% 04/10/2025 8: 25 AM EDT Inhaled Oxygen Concentration - - Weight 89.3 kg (196 lb 12.8 oz) 04/10/2025 8:25 AM EDT Height 180.3 cm (5' 11 ) 03/18/2022 2:27 PM EDT Body Mass Index 27.45 03/18/2022 2:27 PM EDT Plan of Treatment Upcoming Encounters Date Type Department Care Team (Late st Contact Info) Description 10/11/2025 1:15 PM EST Office Visit [facility] [address] [address] Carley Vásquez ARNP [address] [address] Health Maintenance Due Date Last Done Comments [...] Procedure Name Priority Date/Time Associated Diagnosis Comments HEMOGLOBIN A1C Routine 03/17/2022 10:50 AM EDT from Last 3 Months or Most Recently Relevant to Health Maintenance Results * (ABNORMAL) Hemoglobin A1c (03/17/2022 10:50 AM EDT) Hemoglobin A1C 6.3(H) (4.0-5.6) % [facility] Comment: MONITORING: In known diabetic patients, hemoglobin A1c targets should be discussed with health care provider. DIAGNOSTIC USE: The [place] [employer] (ADA) and the World Health [...] Supplement 1 Testing performed or reported by [facility], a Service of [facility], [address] [place] [address] Sterling Ruiz MD, Automobile Service Writer [facility]# [id number] 03/17/2022 10:5 0 AM EDT 03/17/2022 10:53 AM EDT Al Jimenez MD LAB BLOOD ORDERABLES Final Re sult [facility] from Last 3 Months or Most Recently Relevant to Health Maintenance Insurance Care Teams Television Schedule Coordinator Relationship Specialty Start Date End Date Aly Herzog MD [address] [place] [phone] PCP - General Internal Medicine 06/13/21
--- OUTSIDE RECORDS SUMMARY | 2025-07-17 15:18 | XMS_ITS | Clinical Summary ---
Author Organization [facility] [employer] Address [address] [place] [address] Phone Care Team Providers Care Fashion Journalist Name Role Phone Aly Herzog MD Primary Care Provider [phone] Allergies No known active allergies Medications [...] an appointment coming up with a new high school foreign language teacher in the next few weeks as his old high school foreign language teacher has since relocated to [place]. Mixed hyperlipidemia 01/23/2025 Assessment & Plan (01/23/2025 [...] Department Care Team Description 06/01/2025 Results Follow-Up [facility] [address] [place] [address] Bernadette Beltran NP 05/24/2025 9:30 AM EDT Ancillary Procedure [facility] [address] [place] [id number] Aortic valve stenosis, etiology of cardiac valve [...] EST Routine general medical examination at a [facility] care facility Screening for lipoid disorders Screening for malnutrition Avitaminosis D Screening for thyroid disorder Special screening for malignant neoplasm of prostate HEMOGLOBIN A1C Routine 10/18/2024 8:20 AM EST Routine general medical examination at a [facility] care facility Screening for lipoid disorders Screening for malnutrition Avitaminosis D Screening for thyroid disorder Special screening for malignant neoplasm of prostate LIPID PANEL WITH REFLEX TO DIRECT LDL Routine 10/18/2024 8:20 AM EST Routine general medical examination at a [facility] facility Screening for lipoid disorders Screening for malnutrition Avitaminosis D Screening for thyroid disorder Special screening for malignant neoplasm of prostate from Last 3 Months or Most Recently Relevant to Health Maintenance Results * (ABNORMAL) TRANSTHORACIC ECHOCARDIOGRAM (TTE) COMPLETE (05/24/2025 10:13 AM EDT) Left Atrium Minor Jay 3.9 cm CV PACS Left Atrium Major Jay 4.3 cm CV PACS LA Area Sys [...] mg/dL LAB CHEMISTRY METHOD 10/18/2024 11:43 AM [facility] Microalb, Ur 9.4 0.0 - 29.0 mg/L LAB CHEMISTRY METHOD 10/18/2024 11:43 AM [facility] Microalb/Creat Ratio 9 <30 mg/g creat LAB CHEMISTRY METHOD 10/18/2024 11:43 AM [facility] Urine Urine specimen obtained by clean catch procedure / Unknown Non-blood Collection / Unknown 10/18/2024 8:29 AM EST 10/18/2024 10:48 AM EST us Diaz Wills INSPECTOR LAB URINE ORDERABLES Final Re sult [facility] [address] [place] [address], * (ABNORMAL) Lipid panel with reflex to direct LDL (10/18/2024 8:20 AM EST) Cholesterol 176 0 - 200 mg/dL LAB CHEMISTRY METHOD 10/18/2024 11:17 AM [facility] Triglycerides 252(H) 0 - 150 mg/dL LAB CHEMISTRY METHOD 10/18/2024 11:17 AM [facility] HDL 40 >=40 mg/dL LAB CHEMISTRY METHOD 10/18/2024 11:17 AM [facility] LDL Calculated 86 0 - 100 mg/dL LAB CHEMISTRY METHOD 10/18/2024 11:17 AM [facility] VLDL Cholesterol Domenic 50.4 mg/dL LAB CHEMISTRY METHOD 10/18/2024 11:17 AM [facility] Non HDL Chol. (LDL+VLDL) 136 <145 mg/dL LAB CHEMISTRY METHOD 10/18/2024 11:17 AM [facility] Chol/HDL Ratio 4.4 0.0 - 4.4 LAB CHEMISTRY METHOD 10/18/2024 11:17 AM EST [facility] Blood Venous blood specimen / Unknown Venipuncture / Unknown 10/18/2024 8:20 AM EST 10/18/2024 10:40 AM EST Diaz Wills INSPECTOR LAB BLOOD ORDERABLES Final Re sult Performing Organization Address [facility]/ZIP Co de Phone Number [facility] [address] [place] [address], [place] [phone] * (ABNORMAL) Hemoglobin A1c (10/18/2024 8:20 AM EST) Hemoglobin A1C 7.8(H) <6.5 % LAB CHEMISTRY METHOD 10/18/2024 8:46 PM EST [facility] Mean Bld Glu Estim. 177 mg/dL LAB CHEMISTRY METHOD 10/18/2024 8:46 PM EST [facility] Blood Venous blood specimen / Unknown Venipuncture / Unknown 10/18/2024 8:20 AM EST 10/18/2024 10:39 AM EST Diaz Wills NP LAB BLOOD ORDERABLES Final Re sult Performing Organization Address [facility] Co de Phone Number [facility] [address] [place] [address], [place] [phone] * (ABNORMAL) Comprehensive metabolic panel (10/18/2024 8:20 AM EST) Sodium 134 133 - 145 mmol/L LAB CHEMISTRY METHOD 10/18/2024 11:17 AM EST [facility] Potassium 4.0 3.5 - 5.5 mmol/L LAB CHEMISTRY METHOD 10/18/2024 11:17 AM EST [facility] Chloride 103 96 - 110 mmol/L LAB CHEMISTRY METHOD 10/18/2024 11:17 AM [facility] CO2 26 21 - 32 mmol/L LAB CHEMISTRY METHOD 10/18/2024 11:17 AM [facility] Anion Gap 5 3 - 11 LAB CHEMISTRY METHOD 10/18/2024 11:17 AM [facility] Glucose 175(H) 70 - 100 mg/dL LAB CHEMISTRY METHOD 10/18/2024 11:17 AM [facility] BUN 31(H) 5 - 25 mg/dL LAB CHEMISTRY METHOD 10/18/2024 11:17 AM [facility] Creatinine 1.65(H) 0.70 - 1.30 mg/dL LAB CHEMISTRY METHOD 10/18/2024 11:17 AM [facility] eGFR 45(L) >=60 mL/min/1. 73m2 LAB CHEMISTRY METHOD 10/18/2024 11:17 AM [facility] Comment:Calculation based on the Chronic Kidney Disease Epidemiology Collaboration (CKD-EPI) equation refit without adjustment for race. BUN/Creatinine Ratio 18.8 LAB CHEMISTRY METHOD 10/18/2024 11:17 AM [facility] Calcium 9.5 8.5 - 10.5 mg/dL LAB CHEMISTRY METHOD 10/18/2024 11:17 AM [facility] AST (SGOT) 16 10 - 42 unit/L LAB CHEMISTRY METHOD 10/18/2024 11:17 AM [facility] ALT (SGPT) 26 10 - 60 unit/L LAB CHEMISTRY METHOD 10/18/2024 11:17 AM [facility] Alkaline Phosphatase 57 42 - 121 unit/L LAB CHEMISTRY METHOD 10/18/2024 11:17 AM [facility] Total Protein 7.4 6.0 - 8.0 g/dL LAB CHEMISTRY METHOD 10/18/2024 11:17 AM [facility] Albumin 3.7 3.2 - 5.0 g/dL LAB CHEMISTRY METHOD 10/18/2024 11:17 AM EST [facility] Total Bilirubin 0.5 0.0 - 1.4 mg/dL LAB CHEMISTRY METHOD 10/18/2024 11:17 AM EST [facility] Blood Venous blood specimen / Unknown Venipuncture / Unknown 10/18/2024 8:20 AM EST 10/18/2024 10:40 AM EST us Diaz Wills INSPECTOR LAB BLOOD ORDERABLES Final Re sult [facility] [address] [place] [address], from Last 3 Months or Most Recently Relevant to Health Maintenance Insurance [facility] MEDICAID ADVANTAGE Care Teams Fashion Journalist Relationship Specialty Start Date End Date Aly Herzog MD [address] [place] [phone] PCP - General Internal Medicine 10/29/20
--- OUTSIDE RECORDS SUMMARY | 2025-07-17 15:18 | XMS_ITS | Clinical Summary ---
Author Organization [facility] Address [address] [address] Phone Care Team Providers Care Teaching Fellow Name Role Phone Aly Herzog MD Primary [...] Not on file Insurance [address] [facility] [facility] [employer] [place] [employer] H[place] REPLACEMENT Member Subscriber Plan / Payer (Ef fective 2022-Present) Name:Adrian Mancilla Relation to Subscriber:Self Name:Adrian Mancilla Payer ID:Not on file Type:Medicare Address: [place] [id number] [employer] [place] [employer] H[place] REPLACEMENT [employer] [place] [employer] [place] REPLACEMENT [employer] [place] [employer] [place]PLACEMENT [place] [place] H[place] REPLACEMENT [facility] MEDICARE HMO [facility]PLACEMENT [facility] MEDICARE HMO REPLACEMENT [facility] MEDICARE HMO [facility]PLACEMENT [facility] MEDICARE HMO REPLACEMENT Care Teams Teaching Fellow Relationship Specialty Start Date End Date Aly Herzog MD [address] [facility] [address] [place] [address] PCP - General Internal Medicine 05/20/22 Additional Source Comments The information contained in this document represents components of the legal health record. It is not the complete legal health record.[facility]
== END 2025-07-17 11:37 | disposition home or self-care (01) ==
LOC: HO.HMGAL 11:37
PROVIDERS: PCP Internal Medicine; Visit Provider Registered Nurse Emergency
DX: J30.89 Other allergic rhinitis (principal)
CPT/HCPCS: 95117; 95165

== ENCOUNTER 2025-07-31 11:41 | Outpatient (AMB) | payer MEDICARE, SELFPAY | END 2025-07-31 11:42 | disposition home or self-care (01) | LOC: HO.HMGAL 11:41 | PROVIDERS: PCP Internal Medicine; Visit Provider Registered Nurse Emergency | DX: J30.89 Other allergic rhinitis (principal) | CPT/HCPCS: 95117; 95165 ==